=== PATIENT | male | born 1955 | race Caucasian/White ===

== ENCOUNTER 2017-05-19 15:31 | Inpatient (IN) | payer OTHER ==
[~2017-05-19] VITALS: Ht 182.9 cm; Wt 81.0 kg
[2017-05-19] VITALS (7 sets, daily range): BP systolic 129–159; BP diastolic 61–79; PULSE 60–74; RESP 14–20; TEMP 97.5–99.3; O2SAT 97–100
[2017-05-19] MEDS ORDERED: PROCHLORPERAZINE INJ 10 MG/2 ML VIAL IVP ONE (15:45)
[2017-05-19] MEDS ORDERED: SODIUM CHLORIDE 0.9% FLUSH 10 ML FLUSH IVF PRN (15:45)
[2017-05-19] MEDS ORDERED: HYDROmorphone HCL PF 1 MG/ML VIAL IVS ONE (15:45)
--- NOTE | 2017-05-19 15:53 | PD ---
HPI Chief Complaint: Headache Time Seen by Provider: 15:43 Travel History International Travel<30 days: No Contact w/Intl Traveler<30days: No Traveled to known affect area: No History of Present Illness HPI Diagnoses a 62-year-old male with no past medical history, presents here with sudden onset headache. Patient states he was hanging up [place] [employer] decorations when he had a sense onset of bifrontal and top of his head pain. Patient is not had previous pain like this before. He states he was straining trying to catch a decoration from falling when this happened. He did not pass out. He did not follow up the ladder. He reports the pain as sharp and severe. He denies any weakness of his extremities. He denies any neck pain. The patient is currently taking no medications. He has no family history of headaches. [facility] Past Medical History Medical History: Denies Significant Hx Diminished Hearing: No Tetanus Vaccination: > 5 Years Influenza Vaccination: No Past Surgical History Genitourinary Surgery: Yes (VESECTOMY) Social History Alcohol Use: Yes (OCC) Tobacco Use: No Substance Use: No Allergies-Medications (Allergen,Severity, Reaction): Coded Allergies: No Known Allergies (Verified Allergy, Unknown, 05/19/17) Reported Meds & Prescriptions Reported Meds & Active Scripts Active No Active Prescriptions or Reported Medications Review of Systems Except as stated in HPI: all other systems reviewed are Neg General / Constitutional: No: Fever, Chills HENT: Positive: Headaches, Neck Pain, No: Vertigo, Lightheadedness Cardiovascular: No: Chest Pain or Discomfort, Palpitations Respiratory: No: Cough, Shortness of Breath Gastrointestinal: No: Nausea, Vomiting Genitourinary: No: Urgency, Frequency, Nocturia Musculoskeletal: No: Weakness, Pain Neurologic: Positive: Headache, No: Weakness, Dizziness, Focal Abnormalities, Coordination Problem, Change in Mentation, Sensory Disturbance Physical Exam Narrative GENERAL: Well-developed well-nourished male in no acute respiratory distress. Patient complaining of pain. SKIN: Focused skin assessment warm/dry. HEAD: Atraumatic. Normocephalic. EYES: Pupils equal and round at 4 mm. Extraocular muscles appear intact. No nystagmus.. No scleral icterus. No injection or drainage. ENT: No nasal bleeding or discharge. Mucous membranes pink and moist. NECK: Trachea midline. Supple. CARDIOVASCULAR: Regular rate and rhythm. No murmur appreciated. RESPIRATORY: No accessory muscle use. Clear to auscultation. Breath sounds equal bilaterally. GASTROINTESTINAL: Abdomen soft, non-tender, nondistended. Hepatic and splenic margins not palpable. MUSCULOSKELETAL: No obvious deformities. No clubbing. No cyanosis. No edema. NEUROLOGICAL: Awake and alert. No obvious cranial nerve deficits. Motor grossly within normal limits. Normal speech. Normal huxu-lk-tate bilaterally. Data Data Last Documented VS Vital Signs Date Time Temp Pulse Resp B/P (MAP) Pulse Ox O2 Delivery O2 Flow Rate FiO2 05/19/17 16:35 20 05/19/17 15:36 97.5 71 137/79 (98) 100 Orders Orders Complete Blood Count With Diff (05/19/17 15:44) Comprehensive Metabolic Panel (05/19/17 15:44) Prothrombin Time / Inr (Pt) (05/19/17 15:44) Act Partial Throm Time (Ptt) (05/19/17 15:44) Ct Brain W/O Iv Contrast(Rout) (05/19/17 15:44) Ecg Monitoring (05/19/17 15:44) Iv Access Insert/Monitor (05/19/17 15:44) Oximetry (05/19/17 15:44) Prochlorperazine Inj (Compazine Inj) (05/19/17 15:45) Hydromorphone Pf Inj (Dilaudid Pf Inj) (05/19/17 15:45) Cta Brain W Iv Contrast W 3d (05/19/17 ) Admit Order (Ed Use Only) (05/19/17 16:41) Labs Laboratory Tests Test 05/19/17 16:11 White Blood Count 5.4 TH/MM3 Red Blood Count 4.61 MIL/MM3 Hemoglobin 14.5 GM/DL Hematocrit 41.8 % Mean Corpuscular Volume 90.6 FL Mean Corpuscular Hemoglobin 31.4 PG Mean Corpuscular Hemoglobin Concent 34.6 % Red Cell Distribution Width 13.3 % Platelet Count 131 TH/MM3 Mean Platelet Volume 7.6 FL Neutrophils (%) (Auto) 63.5 % Lymphocytes (%) (Auto) 28.6 % Monocytes (%) (Auto) 6.1 % Eosinophils (%) (Auto) 1.6 % Basophils (%) (Auto) 0.2 % Neutrophils # (Auto) 3.4 TH/MM3 Lymphocytes # (Auto) 1.5 TH/MM3 Monocytes # (Auto) 0.3 TH/MM3 Eosinophils # (Auto) 0.1 TH/MM3 Basophils # (Auto) 0.0 TH/MM3 CBC Comment DIFF FINAL Differential Comment Prothrombin Time 11.1 SEC Prothromb Time International Ratio 1.0 RATIO Activated Partial Thromboplast Time 20.3 SEC Blood Urea Nitrogen 22 MG/DL Creatinine 1.09 MG/DL Random Glucose 102 MG/DL Total Protein 7.0 GM/DL Albumin 4.3 GM/DL Calcium Level 8.2 MG/DL Alkaline Phosphatase 54 U/L Aspartate Amino Transf (AST/SGOT) 25 U/L Alanine Aminotransferase (ALT/SGPT) 40 U/L Total Bilirubin 0.8 MG/DL Sodium Level 140 MEQ/L Potassium Level 3.6 MEQ/L Chloride Level 105 MEQ/L Carbon Dioxide Level 27.6 MEQ/L Anion Gap 7 MEQ/L Estimat Glomerular Filtration Rate 69 ML/MIN Phosphorus Level 2.7 MG/DL Magnesium Level 1.8 MG/DL MDM Medical Decision Making Medical Screen Exam Complete: Yes Emergency Medical Condition: Yes Differential Diagnosis Tension headache versus subarachnoid bleed versus migraine variant Narrative Course 62-year-old male with no past medical history, presents today with sudden onset of headache while hanging up [employer] decorations. The patient has never had a headache such as this. He has no focal deficits. ET scan shows a large subarachnoid hemorrhage. The patient is awake and answering questions. He is moving all 4 extremities. Case discussed with Dr. Jeronimo, trauma surgeon, who requested we make the patient to the ICU. He also requested a CT angiogram being ordered. The patient's blood pressure is stable. Case was discussed with Dr. Adorno, flyer maker, who will admit the patient to the ICU. Critical Care Narrative Aggregate critical care time was 45 minutes. Time to perform other separately billable procedures was not included in the critical care time. My time did not include minutes spent treating any other patients simultaneously or on activities that did not directly contribute to the patient's treatment. The services I provided to this patient were to treat and/or prevent clinically significant deterioration that could result in: I provided critical care services requiring my management, as noted below: Chart data review, documentation time, medication orders and management, vital sign assessments/reviewing monitor data, ordering and reviewing lab tests, ordering and interpreting/reviewing x-rays and diagnostic studies, care of the patient and discussion of the patient with the admitting physicians. Diagnosis Primary Impression: Subarachnoid hemorrhage Admitting Information Admitting Physician Requests: Admit Scripts No Active Prescriptions or Reported Meds José Villafuerte MD May 19, 2017 15:52
[2017-05-19 16:18] LABS: AUTOMATED NEUTROPHIL # 3.4 TH/MM3 (1.8-7.7); BASOPHIL % 0.2 % (0.0-2.0); EOSINOPHIL # 0.1 TH/MM3 (0-0.4); EOSINOPHIL % 1.6 % (0.0-4.0); HEMATOCRIT 41.8 % (39.0-51.0); HEMO FLAGS DIFF FINAL; LYMPH % 28.6 % (9.0-44.0); LYMPHOCYTE # 1.5 TH/MM3 (1.0-4.8); MEAN CELL VOLUME 90.6 FL (80.0-100.0); MEAN CORPUSCULAR HEMOGLOBIN 31.4 PG (27.0-34.0); MEAN CORPUSCULAR HGB CONC 34.6 % (32.0-36.0); MONO % 6.1 % (0.0-8.0); NEUT % 63.5 % (16.0-70.0); PLATELET COUNT 131 TH/MM3 (150-450); RED BLOOD COUNT 4.61 MIL/MM3 (4.50-5.90); RED CELL DISTRIBUTION WIDTH 13.3 % (11.6-17.2); WHITE BLOOD COUNT 5.4 TH/MM3 (4.0-11.0)
--- NOTE | 2017-05-19 16:30 | RADRPT ---
EXAM DATE/TIME: 05/19/2017 16:09 [facility] COMPARISON: No previous studies available for comparison. INDICATIONS : Cephalgia today. RADIATION DOSE: 56.35 CTDIvol (mGy) MEDICAL HISTORY : None SURGICAL HISTORY : None. ENCOUNTER: Initial ACUITY: 1 day PAIN SCALE: 10/10 LOCATION: Bilateral head TECHNIQUE: Multiple contiguous axial images were obtained of the head. Using automated exposure control and adj ustment of the mA and/or kV according to patient size, radiation dose was kept as low as reasonably a chievable to obtain optimal diagnostic quality images. DICOM format image data is available electro nically for review and comparison. FINDINGS: The examination is abnormal demonstrating extensive subarachnoid hemorrhage about the base of the bra in, symmetric between left and right side with blood extending into the sylvian fissures, the anterio r interhemispheric fissure, about the brainstem, and in the pre-pontine region. The ventricles are n ormal in size. No evidence of midline shift. There is good chiu-white matter differentiation. CONCLUSION: Extensive subarachnoid hemorrhage both supratentorial and infratentorial. The findings were called to the ED Sj Carver MD on May 19, 2017 at 16:24 Board Certified Radiologist. This report was verified electronically.
[2017-05-19 16:31] LABS: ALKALINE PHOSPHATASE 54 U/L (45-117); TOTAL BILIRUBIN ADULT 0.8 MG/DL (0.2-1.0)
[2017-05-19 16:33] LABS: APTT (PATIENT) 20.3 SEC (24.3-30.1); PROTHROMBIN TIME - PATIENT 11.1 SEC (9.8-11.6)
[2017-05-19 16:35] LABS: ALT (GPT) 40 U/L (12-78); ANION GAP 7 MEQ/L (5-15); AST (GOT) 25 U/L (15-37); BICARBONATE 27.6 MEQ/L (21.0-32.0); BLOOD UREA NITROGEN 22 MG/DL (7-18); CHLORIDE 105 MEQ/L (98-107); GLOMERULAR FILTRATION RATE 69 ML/MIN (>89); POTASSIUM 3.6 MEQ/L (3.5-5.1); SODIUM (NA) 140 MEQ/L (136-145)
[2017-05-19] MEDS ORDERED: IOHEXOL 350 MG/ML 10 ML VIAL (for RAD DIAG) IVCONTRAST ONE (17:14)
[2017-05-19] MEDS ORDERED: SENNOSIDES 8.6 MG TAB PO PRN (17:30)
[2017-05-19] MEDS ORDERED: RESP: ALBUTEROL 2.5 MG/IPRATROPIUM 0.5 MG NEB (PRN) INH (17:30)
[2017-05-19] MEDS ORDERED: niCARdipine INJ 25 MG in SODIUM CHLOR 0.9% 250 ML INJ 240 ML IV PRN (17:30)
[2017-05-19] MEDS ORDERED: MAGNESIUM HYDROXIDE SUSP 30 ML CUP PO PRN ×2 (17:30→18:30)
[2017-05-19] MEDS ORDERED: MISCELLANEOUS NURSING INFORMATION XX SCH (17:30)
[2017-05-19] MEDS ORDERED: BISACODYL 10 MG SUPP RECTAL PRN (17:30)
[2017-05-19] MEDS ORDERED: CHLORHEXIDINE GLUCONATE 2 % 1 PACK (2 CLOTHS) TOP PRN (17:30)
[2017-05-19] MEDS ORDERED: SODIUM CHLORIDE 0.9% FLUSH 10 ML FLUSH IV FLUSH PRN (17:30)
[2017-05-19] MEDS ORDERED: LACTULOSE SYRUP 20 GM/30 ML CUP PO PRN (17:30)
[2017-05-19] MEDS ORDERED: POTASSIUM PHOSPHATE MONOBASIC 500 MG TAB PO PRN (17:45)
[2017-05-19] MEDS ORDERED: POTASSIUM CHLORIDE 25 MEQ EFFERVESCENT TAB PO PRN (17:45)
[2017-05-19] MEDS ORDERED: MAGNESIUM SULFATE INJ 2 GM in SODIUM CHLORIDE 0.9% INJ 96 ML IV PRN (17:45)
[2017-05-19] MEDS ORDERED: MAGNESIUM SULFATE INJ 4 GM in SODIUM CHLORIDE 0.9% INJ 92 ML IV PRN (17:45)
[2017-05-19] MEDS ORDERED: POTASSIUM CHLOR 40 MEQ PREMIX 100 ML IV PRN (17:45)
[2017-05-19] MEDS ORDERED: MAGNESIUM OXIDE 400 MG TAB PO PRN (17:45)
[2017-05-19] MEDS ORDERED: POTASSIUM PHOSPHATE MONOBASIC 500 MG TAB PO/TUBE PRN (17:45)
[2017-05-19] MEDS ORDERED: POTASSIUM CHLOR 20 MEQ PREMIX 100 ML IV PRN (17:45)
[2017-05-19] MEDS ORDERED: POTASSIUM PHOSPHATE INJ 30 MMOL in SODIUM CHLOR 0.9% 250 ML INJ 250 ML IV PRN (17:45)
[2017-05-19] MEDS ORDERED: SODIUM PHOSPHATE INJ 30 MMOL in SODIUM CHLOR 0.9% 250 ML INJ 240 ML IV PRN (17:45)
[2017-05-19] MEDS: NS + KCL 20 MEQ INJ 1,000 ML IV SCH (17:46)
[2017-05-19 17:57] LABS: MAGNESIUM 1.8 MG/DL (1.5-2.5)
--- NOTE | 2017-05-19 18:07 | RADRPT ---
EXAM DATE/TIME: 05/19/2017 16:49 [facility] COMPARISON: No previous studies available for comparison. INDICATIONS : Abnormal CT brain. IV CONTRAST: 85 cc Omnipaque 350 (iohexol) IV ; Cumulative dose for multiple exams. RADIATION DOSE: 15.34 CTDIvol (mGy) ; Combined studies MEDICAL HISTORY : None SURGICAL HISTORY : None. ENCOUNTER: Initial ACUITY: 1 day PAIN SCALE: 10/10 LOCATION: Bilateral head TECHNIQUE: Volumetric scanning was performed using a multi-row detector CT scanner. The data was post processed with a variety of visualization algorithms including full volume maximum intensity projection, multi -planar sliding thin slab reformation, curved planar reformation, and surface rendering techniques. Using automated exposure control and adjustment of the mA and/or kV according to patient size, radiat ion dose was kept as low as reasonably achievable to obtain optimal diagnostic quality images. DICO M format image data is available electronically for review and comparison. FINDINGS: Noncontrast CT demonstrates extensive subarachnoid hemorrhage. There is intact flow in the anterior and posterior cranial circulation without evidence of vessel truncation. Flow is seen in the anterio r communicating artery. The right posterior cerebral artery arises from the anterior circulation. N o flow seen in the left PCOM. No aneurysms seen. No evidence of vessel truncation. CONCLUSION: No vessel truncation or aneurysm seen in this patient with extensive bilateral subarachnoid hemorrhag e. The right P1 segment is not identified. Sj Carver MD on May 19, 2017 at 17:58 Board Certified Radiologist. This report was verified electronically.
--- NOTE | 2017-05-19 18:10 | RADRPT ---
EXAM DATE/TIME: 05/19/2017 16:49 [facility] COMPARISON: No previous studies available for comparison. INDICATIONS : Abnormal CT brain, radiology protocol. IV CONTRAST: 85 cc Omnipaque 350 (iohexol) IV ; Cumulative dose for multiple exams. RADIATION DOSE: 15.34 CTDIvol (mGy) ; Combined studies MEDICAL HISTORY : None SURGICAL HISTORY : None. ENCOUNTER: Initial ACUITY: 1 day PAIN SCALE: 0/10 LOCATION: Bilateral neck Elevated flow velocities and ICA/CCA ratios have been found to correlate with increased degrees of vessel stenosis, calculated as percentage of diameter relative to a normal segment of distal ICA/CCA. TECHNIQUE: Volumetric scanning was performed using a multirow detector CT scanner. The data was post processed with a variety of visualization algorithms including full-volume maximum intensity projection, multip lanar sliding thin-slab reformation, curved-planar reformation, and surface-rendering techniques. Us ing automated exposure control and adjustment of the mA and/or kV according to patient size, radiatio n dose was kept as low as reasonably achievable to obtain optimal diagnostic quality images. DICOM f ormat image data is available electronically for review and comparison. FINDINGS: AORTIC ARCH: There is a three-vessel origin of the great vessels from the aorta. No evidence of ostial narrowing. RIGHT CAROTID: The common carotid artery is intact. The carotid bulb has a normal configuration without ulceration o r narrowing. The internal carotid artery lumen is smooth without stenosis. The external carotid eliceo ry is intact. LEFT CAROTID: The common carotid artery is intact. The carotid bulb has a normal configuration without ulceration or narrowing. There is an eccentric calcification in the wall of the proximal internal carotid arter y posteriorly which does not cause luminal narrowing. The internal carotid artery lumen is smooth wi thout stenosis. The external carotid artery is intact. VERTEBRALS: The vertebral arteries have a symmetric diameter. No stenotic lesions are seen. CONCLUSION: Negative CTA. No focal areas of stenosis seen. Sj Carver MD on May 19, 2017 at 18:05 Board Certified Radiologist. This report was verified electronically.
[2017-05-19] MEDS ORDERED: ACETAMINOPHEN 325 MG TAB PO PRN (18:30)
[2017-05-19] MEDS ORDERED: PROMETHAZINE INJ 25 MG/ML VIAL IM PRN (18:30)
[2017-05-19] MEDS ORDERED: RESP: ALBUTEROL 2.5 MG/3 ML NEB (PRN) NEB (18:30)
[2017-05-19] MEDS ORDERED: ALUMINUM/MAGNESIUM/SIMETH 30 ML CUP PO PRN (18:30)
[2017-05-19] MEDS ORDERED: ONDANSETRON HCL 4 MG/2 ML VIAL IV PUSH PRN (18:30)
[2017-05-19] MEDS ORDERED: LORazepam 2 MG/ML VIAL IV PUSH PRN (18:30)
[2017-05-19] MEDS: MORPHINE SULFATE 4 MG/ML INJ IV PUSH PRN (18:50)
[2017-05-19] MEDS: levETIRAcetam INJ 500 MG in SODIUM CHLORIDE 0.9% INJ 100 ML IV SCH (18:57)
[2017-05-19] MEDS: DOCUSATE SODIUM 50 MG/SENNA 8.6 MG TAB PO SCH (19:53)
[2017-05-19] MEDS: DOCUSATE SODIUM 100 MG CAP PO SCH (19:53)
[2017-05-19] MEDS: ACETAMINOPHEN/HYDROcodone 325 MG/10 MG TAB PO PRN (19:53)
[2017-05-19] MEDS: niMODipine 30 MG CAP PO SCH ×2 (19:53→23:51)
[2017-05-19] MEDS: SODIUM CHLORIDE 0.9% FLUSH 10 ML FLUSH IV FLUSH SCH (19:54)
[2017-05-19] MEDS: FAMOTIDINE 20 MG/2 ML VIAL IV PUSH SCH (19:54)
--- NOTE | 2017-05-19 20:01 | MB ---
cc: BERNARD CHUNG DATE OF CONSULTATION 05/19/2017 REASON FOR CONSULTATION Subarachnoid hemorrhage. HISTORY OF PRESENT ILLNESS A 62-year-old gentleman who was brought to [facility] emergency room after presenting with A sudden onset of severe headache. Apparently, HE was hanging a large [place] tree and had to strain a lot and then subsequently noticed this headache which is bifrontal. He has also had some nausea and small bouts of vomiting, especially when he is moved from the stretcher to the CT scanner as well as the moment up to the intensive care unit. He denies any numbness or paresthesias in the upper or lower extremities or any double vision or blurred vision. CT scan of the head obtained reveals extensive subarachnoid hemorrhage involving the prepontine cistern, basal cisterns, suprasellar cistern, interhemispheric fissure and bilateral sylvian fissure. There is mild hydrocephalus with dilation of temporal horns noted also. Subsequent CT angiogram of the brain was obtained which does not reveal any underlying aneurysm. CTA of the neck is also negative. PAST MEDICAL HISTORY Unremarkable. MEDICATIONS None. SOCIAL HISTORY He is and his and son are here with him. He does not smoke and drinks alcohol on occasional basis. FAMILY HISTORY Positive for cardiac arrhythmias in his two brothers and Parkinson's disease in his father. No history of cerebral aneurysms in the family. REVIEW OF SYSTEMS Complains of headache and complains of bright light bothering him. Complains of nausea, complains of vomiting. Denies any double vision or blurred vision. No chest pain or shortness of breath. No abdominal pain, no numbness or paresthesias in the upper or lower extremities. Denies any previous history of headaches and usually does not get headaches, but this is the worst headache of his life. No history of easy bleeding or bruising. No fevers or chills. No recent weight gain or weight loss. No incontinence. No seizure-like activity noted. Review of systems otherwise negative other than the pertinent positives mentioned. LABORATORY FINDINGS White blood cell count 5.4, hemoglobin 14.5, platelet count 131, PT 11.1, INR 1.0, PTT 20.3. Sodium 140, potassium 3.6, BUN 22, creatinine 1.09, glucose 102. PHYSICAL EXAMINATION VITAL SIGNS: Temperature 97.5, pulse is 60, respiratory rate 20, blood pressure 144/70, oxygen saturation 97% on room air. GENERAL: This is an elderly gentleman who is laying in bed with his eyes closed. He complaints of headache and requesting stronger pain medications. HEAD: No Haile's or raccoon sign, atraumatic. NECK: No guarding and mild rigidity. CHEST: Clear to auscultation bilaterally HEART: Regular rate and rhythm, normal S1, S2, no murmurs. ABDOMEN: Soft, nontender. No hepatosplenomegaly. EXTREMITIES: No clubbing, cyanosis or edema. SKIN: No rash, erythema or abrasions noted. NEUROLOGIC: He is lethargic but easily arousable, states his name. He knows he is in the hospital. He knows the month but not the exact date. Pupils are equal, reactive. Extraocular muscles are intact, although he does seem to have a slight nystagmus on right lateral gaze. Face is symmetric. Tongue is midline. He moves all four extremities with good strength. Negative Babinski. Speech is fluent. Follows simple commands [place] Jones grade 3. IMPRESSION 1. Diffuse subarachnoid hemorrhage without any underlying aneurysm on CT angiogram of the brain. 2. Mild early hydrocephalus. PLAN The patient will be monitored closely in the surgical intensive care unit. His head of bed will be kept elevated at 30 degrees. He will be started on nimodipine for vasospasm and ischemia prophylaxis and Keppra for seizure prophylaxis. Sequential compression device will be used for DVT prophylaxis along with gastrointestinal stress ulcer prophylaxis. We will maintain his blood pressure less than 150 systolic range in case there is a thrombosed aneurysm or aneurysm not well visualized because of the extensive subarachnoid hemorrhage due to risk of re-hemorrhage. If his neurologic condition deteriorates then he will need to be intubated with ventilator support and will also need to contemplate placing a ventriculostomy. A follow-up CT angiogram or conventional cerebral angiogram will be obtained over the next 3-5 days to rule out any aneurysm or vascular abnormality not initially visualized. I have discussed the findings at length with the patient and his family along with the risks associated with this extensive subarachnoid hemorrhage including progressive hydrocephalus, vasospasm, brain swelling, seizures and other complications. His condition is obviously very critical with a guarded prognosis. Discussed with the billing department supervisor, Dr. Aguayo, and the nursing staff. MD ADRIANA Miller /6:47 PM /7:45 PM
--- NOTE | 2017-05-19 20:23 | HHI.HP ---
HPI Service Critical Care Medicine Primary Care Physician Unknown Admission Diagnosis acute subarachnoid hemorrhage Diagnosis: Travel History International Travel<30 Days: No Contact w/Intl Traveler <30 Da: No Traveled to Known Affected Are: No History of Present Illness 62-year-old male with no significant past medical history, presents here with sudden onset headache. Patient states he was pushing up a heavy [place] tree when he had a sudden onset of bifrontal and top of his head pain. He has never experienced similar pain before. He did not pass out. He did not fell off the ladder. He reports the pain as sharp and severe. He denies any weakness of his extremities. He denies any neck pain. The patient is currently taking no medications. He has no family history of headaches or subarachnoid bleed. The CT of the head revealed extensive subarachnoid bleed supratentorial and infratentorial. Head and neck CTA both negative for aneurysm. Review of Systems Constitutional: DENIES: Diaphoretic episodes, Fatigue, Fever, Weight gain, Weight loss, Chills, Dizziness, Change in appetite, Night Sweats Endocrine: DENIES: Heat/cold intolerance, Polydipsia, Polyuria, Polyphagia Eyes: DENIES: Blurred vision, Diplopia, Eye inflammation, Eye pain, Vision loss , Photosensitivity, Double Vision Ears, nose, mouth, throat: DENIES: Tinnitus, Hearing loss, Vertigo, Nasal discharge, Oral lesions, Throat pain, Hoarseness, Ear Pain, Running Nose, Epistaxis, Sinus Pain, Toothache, Odynophagia Respiratory: DENIES: Apneas, Cough, Snoring, Wheezing, Hemoptysis, Sputum production, Shortness of breath Cardiovascular: DENIES: Chest pain, Palpitations, Syncope, Dyspnea on Exertion , PND, Lower Extremity Edema, Orthopnea, Claudication Gastrointestinal: DENIES: Abdominal pain, Black stools, Bloody stools, Constipation, Diarrhea, Nausea, Vomiting, Difficulty Swallowing, Anorexia Genitourinary: DENIES: Sexual dysfunction, Urinary frequency, Urinary incontinence, Urgency, Hematuria, Dysuria, Nocturia, Penile Discharge, Testicular Pain, Testicular Swelling Musculoskeletal: DENIES: Joint pain, Muscle aches, Stiffness, Joint Swelling, Back pain, Neck pain Integumentary: DENIES: Abnormal pigmentation, Nail changes, Pruritus, Rash Hematologic/lymphatic: DENIES: Bruising, Lymphadenopathy Immunologic/allergic: DENIES: Eczema, Urticaria Neurologic: COMPLAINS OF: Headache, DENIES: Abnormal gait, Localized weakness, Paresthesias, Seizures, Speech Problems, Tremor, Poor Balance Psychiatric: DENIES: Anxiety, Confusion, Mood changes, Depression, Hallucinations, Agitation, Suicidal Ideation, Homicidal Ideation, Delusions Past Family Social History Allergies: Coded Allergies: No Known Allergies (Verified Allergy, Unknown, 05/19/17) Past Medical History No significant past medical history Past Surgical History No significant past surgical history Reported Medications Reported Meds & Active Scripts Active No Active Prescriptions or Reported Medications Active Ordered Medications Current Medications Medications (Trade) Dose Ordered Sig/Bam Route PRN Reason Start Time Stop Time Status Last Admin Dose Admin Sodium Chloride (NS Flush) 2 ml UNSCH PRN IVF FLUSH AFTER USING IV ACCESS 05/19/17 15:45 Potassium Chloride/Sodium Chloride 1,000 ml @ 100 mls/hr Q10H IV 05/19/17 17:24 05/19/17 17:46 Sodium Chloride (NS Flush) 2 ml UNSCH PRN IV FLUSH FLUSH AFTER USING IV ACCESS 05/19/17 17:30 Sodium Chloride (NS Flush) 2 ml BID IV FLUSH 05/19/17 21:00 05/19/17 19:54 Famotidine (Pepcid Inj) 20 mg Q12HR IV PUSH 05/19/17 21:00 05/19/17 19:54 Albuterol/ Ipratropium (Duoneb Neb) 1 ampule Q4HR NEB PRN INH WHEEZING 05/19/17 17:30 Miscellaneous Information 1 [id number] XX 05/19/17 17:30 Chlorhexidine Gluconate (Chlorhexidine 2% Cloth) 3 pack Taper DAILY@04 TOP 05/20/17 04:00 05/16/18 03:59 Chlorhexidine Gluconate (Chlorhexidine 2% Cloth) 3 pack UNSCH PRN TOP HYGIENIC CARE 05/19/17 17:30 Senna/Docusate Sodium (Debo-Colace) 1 tab BID PO 05/19/17 21:00 Magnesium Hydroxide (Milk Of Magnesia Liq) 30 ml Q12H PRN PO Mild constipation 05/19/17 17:30 Sennosides (Senokot) 17.2 mg Q12H PRN PO Moderate constipation 05/19/17 17:30 Bisacodyl (Dulcolax Supp) 10 mg DAILY PRN RECTAL SEVERE CONSITIPATION 05/19/17 17:30 Lactulose (Lactulose Liq) 30 ml DAILY PRN PO SEVERE CONSITIPATION 05/19/17 17:30 Nicardipine HCl 25 mg/Sodium Chloride 250 ml @ 50 mls/hr TITRATE PRN IV Blood pressure management 05/19/17 17:30 Potassium Chloride 100 ml @ 50 mls/hr Q2H PRN IV For Potassium 2.8 - 3.2 mEq/L 05/19/17 17:45 Potassium Chloride 100 ml @ 50 mls/hr Q2H PRN IV For Potassium 2.8 - 3.2 mEq/L 05/19/17 17:45 Potassium Bicarb/ Potassium Chloride (K-Lyte Cl Eff) 50 meq UNSCH PRN PO For Potassium 3.3 - 3.5 mEq/L 05/19/17 17:45 Potassium Chloride 100 ml @ 25 mls/hr UNSCH PRN IV For Potassium 3.3 - 3.5 mEq/L 05/19/17 17:45 Potassium Chloride 100 ml @ 50 mls/hr Q2H PRN IV For Potassium 3.3 - 3.5 mEq/L 05/19/17 17:45 Magnesium Sulfate 4 gm/Sodium Chloride 100 ml @ 50 mls/hr UNSCH PRN IV For Magnesium 0.9 - 1.1 mg/dL 05/19/17 17:45 Magnesium Oxide (Mag-Ox) 800 mg UNSCH PRN PO For Magnesium 1.2 - 1.6 mg/dL 05/19/17 17:45 Magnesium Sulfate 2 gm/Sodium Chloride 100 ml @ 50 mls/hr UNSCH PRN IV For Magnesium 1.2 - 1.6 mg/dL 05/19/17 17:45 Potassium Phosphate (K-Phos) 2,000 mg Q4H PRN PO For Phosphorus < 2.5 mg/dL 05/19/17 17:45 Sodium Phosphate 30 mmol/Sodium Chloride 250 ml @ 42 mls/hr UNSCH PRN IV For Phosphorus < 2.5 mg/dL 05/19/17 17:45 Potassium Phosphate (K-Phos) 2,000 mg UNSCH PRN PO/TUBE SEE LABEL COMMENTS 05/19/17 17:45 Potassium Phosphate 30 mmol/ Sodium Chloride 260 ml @ 42 mls/hr UNSCH PRN IV SEE LABEL COMMENTS 05/19/17 17:45 Morphine Sulfate (Morphine Inj) 2 mg Q1H PRN IV PUSH pain>6 05/19/17 18:30 05/19/17 18:50 Acetaminophen/ Hydrocodone Bitart ([place] 10-325 Mg) 1 tab Q4H PRN PO pain 1-6 05/19/17 18:30 Levetriacetam 500 mg/Sodium Chloride 105 ml @ 400 mls/hr Q12H IV 05/19/17 19:00 05/19/17 18:57 Lorazepam (Ativan Inj) 1 mg Q1H PRN IV PUSH SEIZURES 05/19/17 18:30 Docusate Sodium (Colace) 100 mg BID PO 05/19/17 21:00 05/19/17 19:53 Magnesium Hydroxide (Milk Of Magnesia Liq) 30 ml DAILY PRN PO CONSTIPATION 05/19/17 18:30 Al Hydrox/Mg Hydrox/Simethicone (Mag-Al Plus Susp Liq) 30 ml Q6H PRN PO DYSPEPSIA 05/19/17 18:30 Ondansetron HCl (Zofran Inj) 4 mg Q6H PRN IV PUSH NAUSEA OR VOMITING 05/19/17 18:30 05/19/17 18:52 Promethazine HCl (Phenergan Inj) 25 mg Q4H PRN IM NAUSEA OR VOMITING 05/19/17 18:30 Labetalol HCl (Trandate Inj) 10 mg Q1H PRN IV PUSH SYS BP GREATER THAN 150 MMHG 05/19/17 18:30 Acetaminophen (Tylenol) 650 mg Q4H PRN PO TEMPERATURE > 101.5 F 05/19/17 18:30 Albuterol Sulfate (Albuterol Neb) 2.5 mg Q4HR NEB PRN NEB WHEEZING 05/19/17 18:30 Nimodipine (Nimotop) 60 mg Q4HR PO 05/19/17 20:00 05/19/17 19:53 Family History No family history significant of intracranial bleed Social History Denies tobacco, alcohol, or illicit drug abuse Physical Exam Vital Signs Vital Signs Date Time Temp Pulse Resp B/P (MAP) Pulse Ox O2 Delivery O2 Flow Rate FiO2 05/19/17 19:09 96 Room Air 05/19/17 19:05 74 14 129/61 (83) 98 05/19/17 18:15 98.7 64 14 159/73 (101) 98 05/19/17 17:44 05/19/17 17:38 60 20 144/70 (94) 97 Room Air 05/19/17 16:35 20 05/19/17 15:36 97.5 71 20 137/79 (98) 100 Physical Exam GENERAL: Well-nourished, well-developed patient. SKIN: Warm and dry. HEAD: Normocephalic. EYES: No scleral icterus. No injection or drainage. NECK: Supple, trachea midline. No JVD or lymphadenopathy. CARDIOVASCULAR: Regular rate and rhythm without murmurs, gallops, or rubs. RESPIRATORY: Breath sounds equal bilaterally. No accessory muscle use. GASTROINTESTINAL: Abdomen soft, non-tender, nondistended. MUSCULOSKELETAL: No cyanosis, or edema. BACK: Nontender without obvious deformity. NEURO EXAM: GCS: M6 V5 E3 Mental Status: The patient is alert and oriented to person, place, and time with normal speech. Cranial Nerves: Visual acuity intact bilaterally. Visual yanes normal in all quadrants. Pupils are round, reactive to light. Extraocular movements are intact without ptosis. Hearing is normal bilaterally. Voice is normal. Tongue protrudes midline and moves symmetrically. Reflexes: Biceps, patellar, and Achilles are 2/4 bilaterally. No clonus. Sensation: Sensation is intact bilaterally to pain and light touch. Two-point discrimination is intact. Motor: Good muscle tone. Strength is 5/5 bilaterally. Cerebellar: [id number] and [id number] test normal bilaterally. Laboratory Laboratory Tests Test 05/19/17 16:11 White Blood Count 5.4 Red Blood Count 4.61 Hemoglobin 14.5 Hematocrit 41.8 Mean Corpuscular Volume 90.6 Mean Corpuscular Hemoglobin 31.4 Mean Corpuscular Hemoglobin Concent 34.6 Red Cell Distribution Width 13.3 Platelet Count 131 Mean Platelet Volume 7.6 Neutrophils (%) (Auto) 63.5 Lymphocytes (%) (Auto) 28.6 Monocytes (%) (Auto) 6.1 Eosinophils (%) (Auto) 1.6 Basophils (%) (Auto) 0.2 Neutrophils # (Auto) 3.4 Lymphocytes # (Auto) 1.5 Monocytes # (Auto) 0.3 Eosinophils # (Auto) 0.1 Basophils # (Auto) 0.0 CBC Comment DIFF FINAL Differential Comment Prothrombin Time 11.1 Prothromb Time International Ratio 1.0 Activated Partial Thromboplast Time 20.3 Blood Urea Nitrogen 22 Creatinine 1.09 Random Glucose 102 Total Protein 7.0 Albumin 4.3 Calcium Level 8.2 Alkaline Phosphatase 54 Aspartate Amino Transf (AST/SGOT) 25 Alanine Aminotransferase (ALT/SGPT) 40 Total Bilirubin 0.8 Sodium Level 140 Potassium Level 3.6 Chloride Level 105 Carbon Dioxide Level 27.6 Anion Gap 7 Estimat Glomerular Filtration Rate 69 Phosphorus Level 2.7 Magnesium Level 1.8 Result Diagram: 05/19/17 1611 05/19/17 1611 Imaging Last [address] 05/19/17 1544 Signed Impressions: Service Date/Time: Friday, May 19, 2017 16:09 - CONCLUSION: Extensive subarachnoid hemorrhage both supratentorial and infratentorial. The findings were called to the ED Sj Carver MD Neck CTA 05/19/17 0000 Signed Impressions: Service Date/Time: Friday, May 19, 2017 16:49 - CONCLUSION: Negative CTA. No focal areas of stenosis seen. Sj Carver MD Head CTA 05/19/17 0000 Signed Impressions: Service Date/Time: Friday, May 19, 2017 16:49 - CONCLUSION: No vessel truncation or aneurysm seen in this patient with extensive bilateral subarachnoid hemorrhage. The right P1 segment is not identified. MD Shmuel Lopesi VTE Risk Assessment Frances VTE Risk Assessment: Mod/High Risk (score >= 2) VTE Pharm Contraindication: Hemorrhage Caprini Risk Assessment Model Point Value = 1 Point Value = 2 Point Value = 3 Point Value = 5 Age 41-60 Minor surgery BMI > 25 kg/m2 Swollen legs Varicose veins or History of unexplained or recurrent spontaneous Oral contraceptives or hormone replacement Sepsis (< 1 month) Serious lung disease, including pneumonia (< 1 month) Abnormal pulmonary function Acute myocardial infarction Congestive heart failure (< 1 month) History of inflammatory bowel disease Medical patient at bed rest Age 61-74 Arthroscopic surgery Major open surgery (> 45 min) Laparoscopic surgery (> 45 min) Malignancy Confined to bed (> 72 hours) Immobilizing plaster cast Central venous access Age >= 75 History of VTE Family history of VTE Factor V Leiden Prothrombin [id number] Lupus anticoagulant Anticardiolipin antibodies Elevated serum homocysteine Heparin-induced thrombocytopenia Other congenital or acquired thrombophilia Stroke (< 1 month) Elective arthroplasty Hip, pelvis, or leg fracture Acute spinal cord injury (< 1 month) Prophylaxis Regimen Total Risk Factor Score Risk Level Prophylaxis Regimen 0-1 Low Early ambulation 2 Moderate Order ONE of the following: *Sequential Compression Device (SCD) *Heparin 5000 units SQ BID 3-4 Higher Order ONE of the following medications: *Heparin 5000 units SQ TID *Enoxaparin/Lovenox 40 mg SQ daily (WT < 150 kg, CrCl > 30 mL/min) *Enoxaparin/Lovenox 30 mg SQ daily (WT < 150 kg, CrCl > 10-29 mL/min) *Enoxaparin/Lovenox 30 mg SQ BID (WT < 150 kg, CrCl > 30 mL/min) AND/OR *Sequential Compression Device (SCD) 5 or more Highest Order ONE of the following medications: *Heparin 5000 units SQ TID (Preferred with Epidurals) *Enoxaparin/Lovenox 40 mg SQ daily (WT < 150 kg, CrCl > 30 mL/min) *Enoxaparin/Lovenox 30 mg SQ daily (WT < 150 kg, CrCl > 10-29 mL/min) *Enoxaparin/Lovenox 30 mg SQ BID (WT < 150 kg, CrCl > 30 mL/min) AND *Sequential Compression Device (SCD) Assessment and Plan Assessment and Plan Subarachnoid bleed - Neuro checks per unit protocol - CTA negative - TCD's daily - Keppra prophylaxis - Monitor for hydrocephalus - Pravachol nimodipine - SBP control with the goal less than 140 - Consider cerebral angiogram - Further Management per neurosurgery Hypertension - Cardene drip when necessary to keep SBP less than 140 DVT GI prophylaxis - Teds SCDs - No pharmacological DVT prophylaxis due to acute ICH - Pepcid Critical Care: The total critical care time was 35 minutes. Time to perform other separately billable procedures was not included in the critical care time. Blake Aguayo MD May 19, 2017 8:23 pm
[2017-05-20] VITALS (13 sets, daily range): BP systolic 94–141; BP diastolic 58–67; PULSE 58–75; RESP 14–24; TEMP 98–99.1; O2SAT 95–100
[2017-05-20] MEDS ORDERED: MIDAZOLAM HCL 2 MG/2 ML VIAL IV SCH (02:20)
[2017-05-20] MEDS ORDERED: MIDAZOLAM HCL 5 MG/ML VIAL (1 ML) ONE (02:34)
[2017-05-20] MEDS: NS + KCL 20 MEQ INJ 1,000 ML IV SCH ×3 (03:24→23:59)
[2017-05-20] MEDS: CHLORHEXIDINE GLUCONATE 2 % 1 PACK (2 CLOTHS) TOP SCH ×2 (04:00→23:56)
[2017-05-20] MEDS: niMODipine 30 MG CAP PO SCH ×6 (04:29→23:59)
--- NOTE | 2017-05-20 04:43 | RADRPT ---
EXAM DATE/TIME: 05/20/2017 04:06 [facility] COMPARISON: CT BRAIN W/O CONTRAST, May 19, 2017, 16:09. INDICATIONS : Follow up subarachnoid hemorrhage. RADIATION DOSE: 56.35 CTDIvol (mGy) MEDICAL HISTORY : Non-responsive. SURGICAL HISTORY : Non-responsive. ENCOUNTER: Subsequent ACUITY: 1 day PAIN SCALE: Non-responsive LOCATION: cranial TECHNIQUE: Multiple contiguous axial images were obtained of the head. Using automated exposure control and adj ustment of the mA and/or kV according to patient size, radiation dose was kept as low as reasonably a chievable to obtain optimal diagnostic quality images. DICOM format image data is available electro nically for review and comparison. FINDINGS: Extensive subarachnoid hemorrhage is again identified along the base of the brain without signif icant change. The hemorrhage is again noted to extend into the sylvian fissures and anterior interhem ispheric fissure. Interventricular hemorrhage is noted with high density seen levels in both occipita l horns. This hemorrhage is slightly increased in size and the occipital horns are slightly more prom inent. There is no mass effect or midline shift. The bone windows demonstrate no evidence of fracture . CONCLUSION: 1. Slight interval increase in intraventricular hemorrhage compared to the prior study. The occipital horns are slightly more prominent as well. 2. The subarachnoid hemorrhage is not significantly changed. Eduardo Porter MD on May 20, 2017 at 4:37 Board Certified Radiologist. This report was verified electronically.
[2017-05-20] MEDS ORDERED: ROCURONIUM INJ 50 MG/5 ML VIAL IV SCH ×2 (06:00→07:45)
[2017-05-20] MEDS ORDERED: MIDAZOLAM HCL 5 MG/ML VIAL (1 ML) IV SCH (06:00)
[2017-05-20] MEDS ORDERED: SUCCINYLCHOLINE CHLORIDE 100 MG/5 ML SYRINGE IV PUSH SCH (06:00)
[2017-05-20 06:25] LABS: AUTOMATED NEUTROPHIL # 7.1 TH/MM3 (1.8-7.7); BASOPHIL % 0.2 % (0.0-2.0); HEMATOCRIT 40.6 % (39.0-51.0); HEMO FLAGS DIFF FINAL; LYMPH % 11.1 % (9.0-44.0); LYMPHOCYTE # 0.9 TH/MM3 (1.0-4.8); MEAN CELL VOLUME 91.8 FL (80.0-100.0); MEAN CORPUSCULAR HEMOGLOBIN 31.4 PG (27.0-34.0); MEAN CORPUSCULAR HGB CONC 34.2 % (32.0-36.0); MONO % 5.4 % (0.0-8.0); NEUT % 83.3 % (16.0-70.0); PLATELET COUNT 130 TH/MM3 (150-450); RED BLOOD COUNT 4.42 MIL/MM3 (4.50-5.90); WHITE BLOOD COUNT 8.5 TH/MM3 (4.0-11.0)
[2017-05-20] MEDS: PROPOFOL 500 MG/50 ML INJ 50 ML ONE ×2 (06:40→11:38)
--- NOTE | 2017-05-20 06:52 | PD.PROCEDR ---
Procedure Note Procedure Endotracheal Intubation A time-out was completed verifying correct patient, procedure, site, positioning , and special equipment if applicable. The patient was placed in a flat position. Sedation was obtained using Etomidate 20mg. The patient was easily ventilated using an ambu bag. The [employer]/ MAC 4 BLADE was used and inserted into the oropharynx at which time there was a Grade 1 view of the vocal cords. A 8-croatian endotracheal tube was inserted and visualized going through the vocal cords. The stylette was removed. Colorimetric change was visualized on the CO2 meter. Breath sounds were heard in both lung yanes equally. The endotracheal tube was placed at 23 cm, measured at the teeth. A chest x-ray was ordered to assess for pneumothorax and verify endotrachealtube placement. Estimated Blood Loss: 0 The patient tolerated the procedure well and there were no complications. Blake Aguayo MD May 20, 2017 06:52
--- NOTE | 2017-05-20 06:53 | PD.PROCEDR ---
Procedure Note Procedure Centerline placement A time-out was completed verifying correct patient, procedure, site, positioning , and special equipment if applicable. The patient was placed in a dependent position appropriate for central line placement based on the vein to be cannulated. The patients right neck was prepped and draped in sterile fashion. 1% Lidocaine was used to anesthetize the surrounding skin area. A triple lumen 9 -Irish Cordis catheter was introduced into the the internal jugular vein using the Seldinger technique and under ultrasound guidance. The catheter was threaded smoothly over the guide wire and appropriate blood return was obtained. Each lumen of the catheter was evacuated of air and flushed with sterile saline. The catheter was then sutured in place to the skin and a sterile dressing applied. Perfusion to the extremity distal to the point of catheter insertion was checked and found to be adequate. Estimated Blood Loss: 1ml The patient tolerated the procedure well and there were no complications. Blake Aguayo MD May 20, 2017 06:53
[2017-05-20 06:54] LABS: ANION GAP 13 MEQ/L (5-15); AST (GOT) 17 U/L (15-37); BICARBONATE 21.3 MEQ/L (21.0-32.0); BLOOD UREA NITROGEN 17 MG/DL (7-18); CHLORIDE 106 MEQ/L (98-107); GLOMERULAR FILTRATION RATE 86 ML/MIN (>89); POTASSIUM 4.1 MEQ/L (3.5-5.1); SODIUM (NA) 140 MEQ/L (136-145)
[2017-05-20 06:59] LABS: ALKALINE PHOSPHATASE 46 U/L (45-117); ALT (GPT) 39 U/L (12-78); TOTAL BILIRUBIN ADULT 0.8 MG/DL (0.2-1.0)
--- NOTE | 2017-05-20 07:01 | RADRPT ---
EXAM DATE/TIME: 05/20/2017 06:48 [facility] COMPARISON: No previous studies available for comparison. INDICATIONS : ET tube placement, and central line placement. Subarachnoid hemorrhage and mental status changes. MEDICAL HISTORY : None. SURGICAL HISTORY : None. ENCOUNTER: Initial ACUITY: 1 day PAIN SCORE: Non-responsive. LOCATION: Bilateral chest FINDINGS: A single view of the chest demonstrates the lungs to be symmetrically aerated without evidence of mas s, infiltrate or effusion. The cardiomediastinal contours are unremarkable. An endotracheal tube is in place with the tip at the level of thoracic inlet. There has been placement of a right internal ju gular central venous line with no pneumothorax. Osseous structures are intact. CONCLUSION: 1. Intubation and placement of central venous line with no pneumothorax. 2. No acute cardiopulmonary disease. Eduardo Porter MD on May 20, 2017 at 6:58 Board Certified Radiologist. This report was verified electronically.
[2017-05-20] MEDS: DOCUSATE SODIUM 50 MG/SENNA 8.6 MG TAB PO SCH ×2 (07:55→20:09)
[2017-05-20] MEDS: DOCUSATE SODIUM 100 MG CAP PO SCH ×2 (07:55→20:09)
[2017-05-20] MEDS: FAMOTIDINE 20 MG/2 ML VIAL IV PUSH SCH ×2 (07:56→20:08)
[2017-05-20] MEDS: levETIRAcetam INJ 500 MG in SODIUM CHLORIDE 0.9% INJ 100 ML IV SCH ×2 (07:56→18:24)
[2017-05-20] MEDS: PROPOFOL 1000 MG/100 ML IV PRN ×4 (08:15→20:08)
--- NOTE | 2017-05-20 08:39 | PD.OP ---
Operative Report Date of Surgery: May 20, 2017 Preoperative Diagnosis: Subarachnoid hemorrhage with hydrocephalus Postoperative Diagnosis: Same Procedure: Right frontal twist drill hole ventriculostomy placement Anesthesia: Local with sedation Surgeon: Franky Jeronimo M.D. Molding Associate(s): None Operation and Findings: Informed consent was obtained from the . Following continuation of Diprivan and fentanyl drips with the oxygen saturation and hemodynamic monitoring in the intensive care unit, the right frontal region was shaved and the prep with chlor prep and sterilely draped. Using landmarks of 11 cm behind the nasion and 3 cm to the right of the midline, a 1 cm scalp incision was made after infiltrating with 1% lidocaine with epinephrine solution. With a handheld drill a twist drill hole was made in the underlying dura penetrated with a blunt probe. The bactiseal ventriculostomy catheter was then passed into the lateral ventricle at a depth of 6 cm blood-tinged CSF encountered with an opening pressure around 28 cm H20. After drainage of CSF the pressures were down to 8 cm H20. The distal end of the ventriculostomy was then tunneled under the scalp with a trocar and secured to the exit site with a 3-0 nylon thigh and connected to a drainage bag. Scalp incision site was approximated with 3-0 nylon interrupted stitches A sterile dressing was applied. There were no complications and blood loss was less than 5 cc. Franky Jeronimo MD May 20, 2017 08:39
[2017-05-20] MEDS ORDERED: PANTOPRAZOLE SODIUM 40 MG VIAL IVP SCH (09:00)
[2017-05-20] MEDS: SODIUM CHLORIDE 0.9% FLUSH 10 ML FLUSH IV FLUSH SCH ×2 (09:00→20:08)
--- NOTE | 2017-05-20 09:19 | HHI.NSPN ---
(Dillon Cross) History Chief Complaint: Intubated and sedated for diffuse SAH. (Dillon Cross) Interval History A 62-year-old gentleman who was brought to [facility] emergency room after presenting with A sudden onset of severe headache. Apparently, HE was hanging a large [place] tree and had to strain a lot and then subsequently noticed this headache which is bifrontal. He has also had some nausea and small bouts of vomiting, especially when he is moved from the stretcher to the CT scanner as well as the moment up to the intensive care unit. He denies any numbness or paresthesias in the upper or lower extremities or any double vision or blurred vision. CT scan of the head obtained reveals extensive subarachnoid hemorrhage involving the prepontine cistern, basal cisterns, suprasellar cistern, interhemispheric fissure and bilateral sylvian fissure. There is mild hydrocephalus with dilation of temporal horns noted also. Subsequent CT angiogram of the brain was obtained which does not reveal any underlying aneurysm. CTA of the neck is also negative. 05/20/17: Pt sedated on Diprivan. Pupils 2mm bilaterally, slight brisk reaction bilaterally. Ventriculostomy drain placed this morning by Dr. Jeronimo. ICPs 11. (Dillon Cross) System Review Comments Not able to obtain given level of alertness. (Dillon Cross) Exam Results Vital Signs Date Time Temp Pulse Resp B/P (MAP) Pulse Ox O2 Delivery O2 Flow Rate FiO2 05/20/17 08:09 100 30 05/20/17 04:00 98.0 74 23 141/67 (91) 05/19/17 19:09 Room Air Intake and Output 05/20/17 05/20/17 05/21/17 08:00 16:00 00:00 Intake Total 1139 ml Output Total 550 ml Balance 589 ml (Dillon Cross) Physical Examination General: Pt sedated and intubated. Vitals are stable. Eyes: Pupils 2mm bilaterally slight brisk reaction bilaterally. Resp: Intubated. CTA bilaterally. Pressure controlled. Rate 14. FiO2 30%. Peep 5. Heart: NSR no murmurs Abd: Soft positive bs. Skin: No cyanosis or erythema Muscle: Not following commands for muscle testing. Neuro: Pt sedated on Diprivan. Pupils 2mm bilaterally brisk slight reaction bilaterally. Not following commands. Ventriculostomy drain in place. ICP 11. (Dillon Cross) Lab, Micro, Other Results Last Impressions Head CT 05/20/17 0600 Signed Impressions: Service Date/Time: Saturday, May 20, 2017 04:06 - CONCLUSION: 1. Slight interval increase in intraventricular hemorrhage compared to the prior study. The occipital horns are slightly more prominent as well. 2. The subarachnoid hemorrhage is not significantly changed. Eduardo Porter MD Chest X-Ray 05/20/17 0000 Signed Impressions: Service Date/Time: Saturday, May 20, 2017 06:48 - CONCLUSION: 1. Intubation and placement of central venous line with no pneumothorax. 2. No acute cardiopulmonary disease. Eduardo Porter MD Neck CTA 05/19/17 0000 Signed Impressions: Service Date/Time: Friday, May 19, 2017 16:49 - CONCLUSION: Negative CTA. No focal areas of stenosis seen. Sj Carver MD Head CTA 05/19/17 0000 Signed Impressions: Service Date/Time: Friday, May 19, 2017 16:49 - CONCLUSION: No vessel truncation or aneurysm seen in this patient with extensive bilateral subarachnoid hemorrhage. The right P1 segment is not identified. Sj Carver MD Laboratory Tests Test 05/19/17 16:11 05/20/17 00:21 05/20/17 05:46 White Blood Count 5.4 TH/MM3 8.5 TH/MM3 Red Blood Count 4.61 MIL/MM3 4.42 MIL/MM3 Hemoglobin 14.5 GM/DL 13.9 GM/DL Hematocrit 41.8 % 40.6 % Mean Corpuscular Volume 90.6 FL 91.8 FL Mean Corpuscular Hemoglobin 31.4 PG 31.4 PG Mean Corpuscular Hemoglobin Concent 34.6 % 34.2 % Red Cell Distribution Width 13.3 % 14.0 % Platelet Count 131 TH/MM3 130 TH/MM3 Mean Platelet Volume 7.6 FL 7.7 FL Neutrophils (%) (Auto) 63.5 % 83.3 % Lymphocytes (%) (Auto) 28.6 % 11.1 % Monocytes (%) (Auto) 6.1 % 5.4 % Eosinophils (%) (Auto) 1.6 % 0.0 % Basophils (%) (Auto) 0.2 % 0.2 % Neutrophils # (Auto) 3.4 TH/MM3 7.1 TH/MM3 Lymphocytes # (Auto) 1.5 TH/MM3 0.9 TH/MM3 Monocytes # (Auto) 0.3 TH/MM3 0.5 TH/MM3 Eosinophils # (Auto) 0.1 TH/MM3 0.0 TH/MM3 Basophils # (Auto) 0.0 TH/MM3 0.0 TH/MM3 CBC Comment DIFF FINAL DIFF FINAL Differential Comment Prothrombin Time 11.1 SEC Prothromb Time International Ratio 1.0 RATIO Activated Partial Thromboplast Time 20.3 SEC Blood Urea Nitrogen 22 MG/DL 17 MG/DL Creatinine 1.09 MG/DL 0.90 MG/DL Random Glucose 102 MG/DL 132 MG/DL Total Protein 7.0 GM/DL 7.0 GM/DL Albumin 4.3 GM/DL 4.0 GM/DL Calcium Level 8.2 MG/DL 8.3 MG/DL Alkaline Phosphatase 54 U/L 46 U/L Aspartate Amino Transf (AST/SGOT) 25 U/L 17 U/L Alanine Aminotransferase (ALT/SGPT) 40 U/L 39 U/L Total Bilirubin 0.8 MG/DL 0.8 MG/DL Sodium Level 140 MEQ/L 140 MEQ/L Potassium Level 3.6 MEQ/L 4.1 MEQ/L Chloride Level 105 MEQ/L 106 MEQ/L Carbon Dioxide Level 27.6 MEQ/L 21.3 MEQ/L Anion Gap 7 MEQ/L 13 MEQ/L Estimat Glomerular Filtration Rate 69 ML/MIN 86 ML/MIN Phosphorus Level 2.7 MG/DL Magnesium Level 1.8 MG/DL 2.0 MG/DL Nasal Screen MRSA (PCR) MRSA NOT DETECTED 05/20/17 05/20/17 05/21/17 15:00 23:00 07:00 Intake Total 1139 ml Output Total 550 ml Balance 589 ml Intake IV Total 1139 ml Output Urine Total 550 ml (Dillon Cross) Medical Decision Making Impression and Plan A: 1. Diffuse subarachnoid hemorrhage without any underlying aneurysm on CT angiogram of the brain. 2. Mild early hydrocephalus. s/p ventriculostomy placement on 05/20 Pt remains in critical condition. PLAN Continue with close neuro checks Continue with ICP monitoring and treatment Continue with TCD for vasospasm evaluation Continue with SCDs for DVT prophylaxis Continue with keppra for seizure prophylaxis Continue with Nimotop for vasospasm prophylaxis. Discussed care plan with RN. (Dillon Cross) Attending Statement The exam, history, and the medical decision-making described in the above note were completed with the assistance of the mid-level provider. I reviewed and agree with the findings presented. I attest that I had a [id number] encounter with the patient on the same day, and personally performed and documented my assessment and findings in the medical record. Follow-up CT scan with no further hemorrhage but now has developed moderate hydrocephalus with some intraventricular hemorrhage in the occipital horns. He is intubated since that he was more lethargic with fluctuant level of alertness and the ventriculostomy also placed. We will obtain us conventional cerebral angiogram of the next day or so to further evaluate the possibility of an underlying aneurysm not initially visualized on the CT angiogram. Discussed with the and son at bedside. (Franky Jeronimo MD) Dillon Cross May 20, 2017 09:19 Franky Jeronimo MD May 20, 2017 11:19
[2017-05-20] MEDS ORDERED: SODIUM CHLOR 0.9% 1000 ML INJ 1,000 ML IV ONE (10:15)
[2017-05-20] MEDS ORDERED: NOREPINEPHRINE 4 MG/4 ML AMP ONE (10:35)
[2017-05-20] MEDS: NOREPINEPHRINE 4 MG/D5W 250 ML IV PRN ×2 (10:36→23:17)
[2017-05-20] MEDS: MORPHINE SULFATE 4 MG/ML INJ IV PUSH PRN (11:07)
[2017-05-20 12:05] LABS: BLOOD GAS HCO3 20 mmol/L (22-26); BLOOD GAS METHEMOGLOBIN 1.1 % (0-2); BLOOD GAS O2 HGB SATURATION 97 % (90-100); BLOOD GAS OXYGEN CONTENT 17.1 Vol % (12.0-20.0); BLOOD GAS PCO2 31 mmHg (38-42); BLOOD GAS PO2 164 mmHg (61-120); BLOOD GAS TOTAL HGB 12.3 G/DL (12.0-16.0); TEMP CORR TO 98.6
[2017-05-20 12:06] LABS: CRITICAL VALUE NO; OXYGEN DEVICE VENTILATOR
[2017-05-20 12:07] LABS: FIO2 30 %; STAT NO
--- NOTE | 2017-05-20 13:23 | HHI.CCPN ---
Subjective Remarks/Hospital Course 05/19: 62-year-old male with no significant past medical history, presents here with sudden onset headache. Patient states he was pushing up a heavy [place] tree when he had a sudden onset of bifrontal and top of his head pain. He has never experienced similar pain before. He did not pass out. He did not fell off the ladder. He reports the pain as sharp and severe. He denies any weakness of his extremities. He denies any neck pain. The patient is currently taking no medications. He has no family history of headaches or subarachnoid bleed. The CT of the head revealed extensive subarachnoid bleed supratentorial and infratentorial. Head and neck CTA both negative for aneurysm. 05/20: Patient reintubated for worsening neurologic status this morning and placed on mechanical ventilation. Neurosurgery placed a ventriculostomy. When I evaluated the patient he was sedated with propofol, orally intubated on mechanical ventilation. He had just been started on Levophed to maintain CPP. Objective Vital Signs Date Time Temp Pulse Resp B/P (MAP) Pulse Ox O2 Delivery O2 Flow Rate FiO2 05/20/17 12:00 67 05/20/17 12:00 99.0 14 109/61 (77) 100 05/20/17 08:09 30 05/19/17 19:09 Room Air Intake and Output 05/20/17 05/20/17 05/21/17 08:00 16:00 00:00 Intake Total 1139 ml 1150 ml Output Total 550 ml Balance 589 ml 1150 ml Result Diagram: 05/20/17 0546 05/20/17 0546 Other Results Laboratory Tests Test 05/20/17 11:43 Blood Gas Puncture Site RR ART LINE Blood Gas Patient Temperature 98.6 Blood Gas HCO3 20 mmol/L (22-26) Blood Gas Base Excess -4.0 mmol/L (-2-2) Blood Gas Oxygen Saturation 97 % (90-100) Arterial Blood pH 7.42 (7.380-7.420) Arterial Blood Partial Pressure CO2 31 mmHg (38-42) Arterial Blood Partial Pressure O2 164 mmHg (61-120) Arterial Blood Oxygen Content 17.1 Vol % (12.0-20.0) Arterial Blood Carboxyhemoglobin 1.0 % (0-4) Arterial Blood Methemoglobin 1.1 % (0-2) Blood Gas Hemoglobin 12.3 G/DL (12.0-16.0) Oxygen Delivery Device VENTILATOR Blood Gas Ventilator Setting 550/14/+5/1.0 Blood Gas Inspired Oxygen 30 % Imaging Last [address] 05/19/17 1544 Signed Impressions: Service Date/Time: Friday, May 19, 2017 16:09 - CONCLUSION: Extensive subarachnoid hemorrhage both supratentorial and infratentorial. The findings were called to the ED Sj Carver MD Neck CTA 05/19/17 0000 Signed Impressions: Service Date/Time: Friday, May 19, 2017 16:49 - CONCLUSION: Negative CTA. No focal areas of stenosis seen. Sj Carver MD Head CTA 05/19/17 0000 Signed Impressions: Service Date/Time: Friday, May 19, 2017 16:49 - CONCLUSION: No vessel truncation or aneurysm seen in this patient with extensive bilateral subarachnoid hemorrhage. The right P1 segment is not identified. Sj Carver MD Objective Remarks HEENT: Sedated, orally intubated, Pallor present, no icterus, tongue/ mucosa moist Neck: No JVD Chest/Pulm: on mech vent, good air entry bilaterally, no wheezing or crackles CVS: S1-S2 regular, no murmur GI/abdomen: soft, nontender, bowel sounds sluggish Extremities: warm bilaterally, no edema NEURO EXAM: Sedated, arousable, moves all 4 extremities, pupils 3 m bilaterally reactive, nonfocal grossly, ventriculostomy in place. A/P Assessment and Plan Subarachnoid bleed - Neuro checks per unit protocol - CTA negative - TCD's daily - Keppra prophylaxis - Monitor for hydrocephalus - Pravachol nimodipine - SBP control with the goal less than 140 - Consider cerebral angiogram - Ventriculostomy placed by neurosurgery - Further Management per neurosurgery Respiratory: Intubated for airway protection and placed on mechanical ventilation. Continue vent bundle, bronchodilators as needed. Hold C Pap trials still okay with neurosurgery. Cardiovascular Hypotension h/o Hypertension -IV hydration, started on Levophed for pressor support to maintain CPP greater than 60mm Hg GI/liver Start tube feeds with Jevity 1.5 and advanced to goal as tolerated. DVT GI prophylaxis - Teds SCDs - No pharmacological DVT prophylaxis due to acute ICH - Pepcid Critical Care: The total critical care time was 35 minutes. Time to perform other separately billable procedures was not included in the critical care time. Arturo Amato MD May 20, 2017 13:23
[2017-05-20] MEDS: fentaNYL DRIP 250 ML IV PRN (13:58)
--- NOTE | 2017-05-20 15:18 | RADRPT ---
EXAM DATE/TIME: 05/20/2017 08:36 [facility] COMPARISON: No previous studies available for comparison. INDICATIONS : Acute subarachnoid hemorrhage. MEDICAL HISTORY : Headache. Subarachnoid hemorrhage. SURGICAL HISTORY : Vasectomy. ENCOUNTER: Initial ACUITY: 1 day PAIN SCORE: Nonresponsive. LOCATION: Bilateral cranial Current Exam: May 20, 2017 [place] Ratio: Right: 1.5 Left: 2.1 [place] Ratio: Right: 2.2 Left: 2.6 Right: Left: Right: Left: FINDINGS: Examination performed at bedside. Real-time ultrasound with the assistance of color and spectral Dop pler was utilized to evaluate the intracerebral circulation. Time-averaged maximal velocities are ca lculated in cm/s. Based on [place] ratio, no significant vasospasm can be identified at this time. CONCLUSION: 1. No vasospasm seen at this time. Left posterior cerebral artery was not well evaluated. Otto Medina MD on May 20, 2017 at 15:13 Board Certified Radiologist. This report was verified electronically.
[2017-05-20] MEDS: PRAVASTATIN SOD 40 MG TAB PO SCH (20:09)
[2017-05-21] VITALS (19 sets, daily range): BP systolic 106–138; BP diastolic 51–64; PULSE 54–72; RESP 12–14; TEMP 97.7–100.3; O2SAT 97–100
[2017-05-21] MEDS: PROPOFOL 1000 MG/100 ML IV PRN ×3 (02:21→17:15)
[2017-05-21] MEDS: NOREPINEPHRINE INJ 4 MG in SODIUM CHLOR 0.9% 250 ML INJ 246 ML IV PRN ×2 (02:24→20:34)
[2017-05-21] MEDS: niMODipine 30 MG CAP PO SCH ×5 (04:26→21:25)
[2017-05-21 05:11] LABS: AUTOMATED NEUTROPHIL # 4.8 TH/MM3 (1.8-7.7); BASOPHIL % 0.3 % (0.0-2.0); EOSINOPHIL # 0.1 TH/MM3 (0-0.4); EOSINOPHIL % 1.3 % (0.0-4.0); HEMATOCRIT 36.9 % (39.0-51.0); HEMO FLAGS DIFF FINAL; LYMPH % 30.6 % (9.0-44.0); LYMPHOCYTE # 2.5 TH/MM3 (1.0-4.8); MEAN CELL VOLUME 91.1 FL (80.0-100.0); MEAN CORPUSCULAR HEMOGLOBIN 30.6 PG (27.0-34.0); MEAN CORPUSCULAR HGB CONC 33.6 % (32.0-36.0); MONO % 8.4 % (0.0-8.0); NEUT % 59.4 % (16.0-70.0); PLATELET COUNT 141 TH/MM3 (150-450); RED BLOOD COUNT 4.05 MIL/MM3 (4.50-5.90); RED CELL DISTRIBUTION WIDTH 14.2 % (11.6-17.2); WHITE BLOOD COUNT 8.1 TH/MM3 (4.0-11.0)
[2017-05-21 05:36] LABS: ALKALINE PHOSPHATASE 40 U/L (45-117); ALT (GPT) 30 U/L (12-78); ANION GAP 7 MEQ/L (5-15); AST (GOT) 14 U/L (15-37); BICARBONATE 21.7 MEQ/L (21.0-32.0); BLOOD UREA NITROGEN 15 MG/DL (7-18); CHLORIDE 115 MEQ/L (98-107); GLOMERULAR FILTRATION RATE 100 ML/MIN (>89); POTASSIUM 3.7 MEQ/L (3.5-5.1); SODIUM (NA) 144 MEQ/L (136-145); TOTAL BILIRUBIN ADULT 0.5 MG/DL (0.2-1.0)
[2017-05-21] MEDS: levETIRAcetam INJ 500 MG in SODIUM CHLORIDE 0.9% INJ 100 ML IV SCH ×2 (06:16→18:00)
[2017-05-21] MEDS ORDERED: GLUCAGON 1 MG/ML VIAL OTHER PRN (06:45)
[2017-05-21] MEDS ORDERED: DEXTROSE 50% IN WATER 50 ML VIAL(D50) IV PUSH PRN (06:45)
[2017-05-21 06:55] LABS: BLOOD GAS BASE EXCESS -3.7 mmol/L (-2-2); BLOOD GAS CARBOXYHEMOGLOBIN 0.9 % (0-4); BLOOD GAS HCO3 20 mmol/L (22-26); BLOOD GAS METHEMOGLOBIN 1.2 % (0-2); BLOOD GAS O2 HGB SATURATION 97 % (90-100); BLOOD GAS OXYGEN CONTENT 16.3 Vol % (12.0-20.0); BLOOD GAS PCO2 27 mmHg (38-42); BLOOD GAS PO2 163 mmHg (61-120); BLOOD GAS TOTAL HGB 11.7 G/DL (12.0-16.0); TEMP CORR TO 98.6
[2017-05-21 06:56] LABS: CRITICAL VALUE NO; DRAW SITE ART LINE; FIO2 30 %; OXYGEN DEVICE VENTILATOR; STAT NO; VENT SETTINGS PRVC/AC
[2017-05-21] MEDS ORDERED: POTASSIUM CHLORIDE 20 MEQ PWD PACKET NG ONE (07:15)
--- NOTE | 2017-05-21 07:22 | HHI.CCPN ---
Subjective Remarks/Hospital Course 05/19: 62-year-old male with no significant past medical history, presents here with sudden onset headache. Patient states he was pushing up a heavy [place] tree when he had a sudden onset of bifrontal and top of his head pain. He has never experienced similar pain before. He did not pass out. He did not fell off the ladder. He reports the pain as sharp and severe. He denies any weakness of his extremities. He denies any neck pain. The patient is currently taking no medications. He has no family history of headaches or subarachnoid bleed. The CT of the head revealed extensive subarachnoid bleed supratentorial and infratentorial. Head and neck CTA both negative for aneurysm. 05/20: Patient reintubated for worsening neurologic status this morning and placed on mechanical ventilation. Neurosurgery placed a ventriculostomy. When I evaluated the patient he was sedated with propofol, orally intubated on mechanical ventilation. He had just been started on Levophed to maintain CPP. Subjective 05/21: Afebrile. Patient remains bradycardic. Currently sedated with propofol along with fentanyl drips. Tolerating tube feeding. No bowel movement. Currently not following commands but on sedation. Plan for formal cerebral arteriogram today Objective Vital Signs Date Time Temp Pulse Resp B/P (MAP) Pulse Ox O2 Delivery O2 Flow Rate FiO2 05/21/17 04:00 56 05/21/17 04:00 98.9 14 114/62 (79) 100 05/21/17 04:00 30 05/20/17 19:00 Mechanical Ventilator Intake and Output 05/21/17 05/21/17 05/22/17 08:00 16:00 00:00 Intake Total 141 ml Balance 141 ml Result Diagram: 05/21/17 0430 05/21/17 0430 Other Results Laboratory Tests Test 05/20/17 11:43 05/21/17 06:45 Blood Gas Puncture Site RR ART LINE ART LINE Blood Gas Patient Temperature 98.6 98.6 Blood Gas HCO3 20 mmol/L (22-26) 20 mmol/L (22-26) Blood Gas Base Excess -4.0 mmol/L (-2-2) -3.7 mmol/L (-2-2) Blood Gas Oxygen Saturation 97 % (90-100) 97 % (90-100) Arterial Blood pH 7.42 (7.380-7.420) 7.47 (7.380-7.420) Arterial Blood Partial Pressure CO2 31 mmHg (38-42) 27 mmHg (38-42) Arterial Blood Partial Pressure O2 164 mmHg (61-120) 163 mmHg (61-120) Arterial Blood Oxygen Content 17.1 Vol % (12.0-20.0) 16.3 Vol % (12.0-20.0) Arterial Blood Carboxyhemoglobin 1.0 % (0-4) 0.9 % (0-4) Arterial Blood Methemoglobin 1.1 % (0-2) 1.2 % (0-2) Blood Gas Hemoglobin 12.3 G/DL (12.0-16.0) 11.7 G/DL (12.0-16.0) Oxygen Delivery Device VENTILATOR VENTILATOR Blood Gas Ventilator Setting 550/14/+5/1.0 PRVC/AC Blood Gas Inspired Oxygen 30 % 30 % Imaging Last Impressions Head CT 05/20/17 0600 Signed Impressions: Service Date/Time: Saturday, May 20, 2017 04:06 - CONCLUSION: 1. Slight interval increase in intraventricular hemorrhage compared to the prior study. The occipital horns are slightly more prominent as well. 2. The subarachnoid hemorrhage is not significantly changed. Eduardo Porter MD Chest X-Ray 05/20/17 0000 Signed Impressions: Service Date/Time: Saturday, May 20, 2017 06:48 - CONCLUSION: 1. Intubation and placement of central venous line with no pneumothorax. 2. No acute cardiopulmonary disease. Eduardo Porter MD Neck CTA 05/19/17 0000 Signed Impressions: Service Date/Time: Friday, May 19, 2017 16:49 - CONCLUSION: Negative CTA. No focal areas of stenosis seen. Sj Carver MD Head CTA 05/19/17 0000 Signed Impressions: Service Date/Time: Friday, May 19, 2017 16:49 - CONCLUSION: No vessel truncation or aneurysm seen in this patient with extensive bilateral subarachnoid hemorrhage. The right P1 segment is not identified. Sj Carver MD Objective Remarks HEENT: Sedated, orally intubated, Pallor present, no icterus, tongue/ mucosa moist Neck: No JVD Chest/Pulm: on mech vent, good air entry bilaterally, no wheezing or crackles CVS: S1-S2 regular, no murmur GI/abdomen: soft, nontender, bowel sounds sluggish Extremities: warm bilaterally, no edema NEURO EXAM: GENERAL: 62-year-old male, currently orotracheally intubated SKIN: Warm and dry. No rash HEAD: Status post right ventriculostomy currently at -10 cm H2O EYES: Pupils equal and round around 2-3 mm and slightly reactive. No scleral icterus. No injection or drainage. ENT: No nasal bleeding or discharge. Mucous membranes pink and moist. Orotracheally intubated NECK: Trachea midline. No JVD. CARDIOVASCULAR: Bradycardic, RR. S1, S2. No S4. Without murmur RESPIRATORY: Clear to auscultation. Breath sounds equal bilaterally. GASTROINTESTINAL: Abdomen soft, non-tender, nondistended. Hypoactive bowel sounds are appreciated MUSCULOSKELETAL: Extremities without significant peripheral edema. No obvious deformities. NEUROLOGICAL: Cranial nerves II through XII appear grossly intact. Patient does withdrawal all 4 extremity's. Currently not following commands. Currently on propofol drip at 25 mics grams per kilo per minute and fentanyl drip at 150 g an hour. Urinary Catheter: Yes Assessment to: Continue Arellano insert reason: Prolonged Immobilization Vascular Central Line Catheter: Yes Assessment to: Continue Date of Insertion: May 20, 2017 Line: Central Venous Catheter Side: Right Location: Subclavian A/P Assessment and Plan NEURO/PSYCH: Subarachnoid hemorrhage CT brain 05/19 revealed open infratentorial subarachnoid hemorrhage fissure scale #3. Subarachnoid blood in the sylvian fissures, anterior hemispheric fissure, brainstem and pre-pontine region CT angiogram head and neck revealed no acute aneurysm Repeat CT brain 05/20 revealed no further hemorrhage but now has developed moderate hydrocephalus with some intraventricular hemorrhage in the occipital horn Plan for formal cerebral angiography today. Dr. Jeronimo/neurosurgery placed ICP monitor. Currently at -10 cm H2O -110 cm fluid serosanguineous. ICPs currently 9 Currently on levetiracetam 500 mill grams IV twice a day for seizure prophylaxis 7 days Currently on nimodipine 60 mg by mouth every 4 hours Goal systolic blood pressure less than 140 Transcranial Dopplers daily. Respiratory: Acute respiratory failure [facility] 12/500/06/29/29 Ventilator bundle Albuterol/ipratropium aerosols every 6 hours with albuterol aerosols every 2 hours. Dyspnea Intubated for airway protection and placed on mechanical ventilation. Continues breathing trials when okay with neurosurgery. Cardiovascular Hypotension h/o Hypertension -IV hydration with normal saline with 20 mEq of KCl 100 cc an hour - Currently on norepinephrine drip currently at 5 mics grams per minute support to maintain CPP greater than 60mm Hg GI/liver Hypoalbuminemia Start tube feeds with Jevity 1.5 and advanced to goal of 60 cc an hour per dietary's recommendations Famotidine for GI prophylaxis Docusate sodium/senna twice a day for bowel regimen. Add polyethylene glycol and lactulose daily HEME Normocytic anemia Thrombocytopenia Monitor CBC daily. Follow trends Does not meet transfusion threshold at this time : Maintain Arellano catheter for accurate I's and O's in a critically ill patient ID: Monitor for infection RENAL: Creatinine currently within normal limits Monitor urine output Accurate I's and O's FEN: Hypocalcemia Hyperchloremia Replace electrolytes as clinically indicated per ICU electrolyte protocol DVT GI prophylaxis - Teds SCDs - No pharmacological DVT prophylaxis due to acute ICH -Famotidine for GI prophylaxis Critical Care: The total critical care time was 35 minutes. Time to perform other separately billable procedures was not included in the critical care time. Segun Lima MD May 21, 2017 07:22
[2017-05-21] MEDS: RESP: ALBUTEROL 2.5 MG/IPRATROPIUM 0.5 MG NEB (SCH) INH ×6 (08:00→23:57)
[2017-05-21] MEDS: POLYETHYLENE GLYCOL 17 GM PKG PO SCH ×2 (08:35→14:17)
[2017-05-21] MEDS: LACTULOSE SYRUP 20 GM/30 ML CUP PO SCH ×2 (08:35→14:16)
[2017-05-21] MEDS: DOCUSATE SODIUM 50 MG/SENNA 8.6 MG TAB PO SCH ×2 (08:36→20:34)
[2017-05-21] MEDS: FAMOTIDINE 20 MG/2 ML VIAL IV PUSH SCH ×2 (08:36→20:34)
[2017-05-21] MEDS: NS + KCL 20 MEQ INJ 1,000 ML IV SCH ×2 (08:37→20:35)
[2017-05-21] MEDS: SODIUM CHLORIDE 0.9% FLUSH 10 ML FLUSH IV FLUSH SCH ×2 (08:38→21:00)
--- NOTE | 2017-05-21 09:23 | RADRPT ---
EXAM DATE/TIME: 05/21/2017 08:03 [facility] COMPARISON: US TRANSCRANIAL DOPPLER COMPLETE, May 20, 2017, 8:36. INDICATIONS : Subarachnoid hemorrhage. MEDICAL HISTORY : Headache. Subarachnoid hemorrhage. SURGICAL HISTORY : Vasectomy. ENCOUNTER: Subsequent ACUITY: 2 days PAIN SCORE: Nonresponsive. LOCATION: Bilateral cranial Current Exam: May 21, 2017 [place] Ratio: Right: 1.1 Left: 1.2 Briggs Ratio: Right: 0.9 Left: 0.8 Previous Exam: May 20, 2017 [place] Ratio: Right: 1.5 Left: 2.1 [place] Ratio: Right: 2.2 Left: 2.6 FINDINGS: Examination performed at bedside. Real-time ultrasound with the assistance of color and spectral Dop pler was utilized to evaluate the intracerebral circulation. Time-averaged maximal velocities are ca lculated in cm/s. No evidence for vasospasm. Posterior fossa velocities are difficult to assess. CONCLUSION: Negative for vasospasm. Sandoval Mccollum MD FACR on May 21, 2017 at 9:18 Board Certified Radiologist. This report was verified electronically.
--- NOTE | 2017-05-21 09:28 | HHI.NSPN ---
(Dillon Cross) History Chief Complaint: Intubated and sedated for diffuse SAH. (Dillon Cross) Interval History A 62-year-old gentleman who was brought to [facility] emergency room after presenting with A sudden onset of severe headache. Apparently, HE was hanging a large [place] tree and had to strain a lot and then subsequently noticed this headache which is bifrontal. He has also had some nausea and small bouts of vomiting, especially when he is moved from the stretcher to the CT scanner as well as the moment up to the intensive care unit. He denies any numbness or paresthesias in the upper or lower extremities or any double vision or blurred vision. CT scan of the head obtained reveals extensive subarachnoid hemorrhage involving the prepontine cistern, basal cisterns, suprasellar cistern, interhemispheric fissure and bilateral sylvian fissure. There is mild hydrocephalus with dilation of temporal horns noted also. Subsequent CT angiogram of the brain was obtained which does not reveal any underlying aneurysm. CTA of the neck is also negative. 05/20/17: Pt sedated on Diprivan. Pupils 2mm bilaterally, slight brisk reaction bilaterally. Ventriculostomy drain placed this morning by Dr. Jeronimo. ICPs 11. 05/21/17: Pt sedated on Diprivan and Fentanyl. Intubated. Pupils 2mm bilaterally reactive bilaterally. Ventriculostomy drain in place with blood tinged CSF at 10cm H2O. ICP 6-8. (Dillon Cross) System Review Comments Not able to obtain given clinical condition. (Dillon Cross) Exam Results Vital Signs Date Time Temp Pulse Resp B/P (MAP) Pulse Ox O2 Delivery O2 Flow Rate FiO2 05/21/17 09:11 100 30 05/21/17 06:00 54 05/21/17 04:00 98.9 14 114/62 (79) 05/20/17 19:00 Mechanical Ventilator Intake and Output 05/21/17 05/21/17 05/22/17 08:00 16:00 00:00 Intake Total 787 ml Output Total 610 ml Balance 177 ml (Dillon Cross) Physical Examination General: Pt sedated on Diprivan and Fentanyl drip and intubated. Vitals are stable. Eyes: Pupils 2mm bilaterally slight brisk reaction bilaterally. Resp: Intubated. CTA bilaterally. Pressure controlled. Rate 14. FiO2 35%. Peep 5. Heart: NSR no murmurs Abd: Soft positive bs. Skin: No cyanosis or erythema Muscle: Not following commands for muscle testing. Neuro: Pt sedated on Diprivan and Fentanyl drips. Pupils 2mm bilaterally brisk slight reaction bilaterally. Not following commands. Ventriculostomy drain in place at [id number] with blood tinged CSF. ICP 6-8. (Dillon Cross) Physical Examination He is intubated and sedated with fentanyl and Diprivan drips. When drips were held he does open his eyes spontaneously and follows commands and moving all 4 extremities. (Franky Jeronimo MD) Lab, Micro, Other Results Last Impressions Head CT 05/20/17 0600 Signed Impressions: Service Date/Time: Saturday, May 20, 2017 04:06 - CONCLUSION: 1. Slight interval increase in intraventricular hemorrhage compared to the prior study. The occipital horns are slightly more prominent as well. 2. The subarachnoid hemorrhage is not significantly changed. Eduardo Porter MD Chest X-Ray 05/20/17 0000 Signed Impressions: Service Date/Time: Saturday, May 20, 2017 06:48 - CONCLUSION: 1. Intubation and placement of central venous line with no pneumothorax. 2. No acute cardiopulmonary disease. Eduardo Porter MD Neck CTA 05/19/17 0000 Signed Impressions: Service Date/Time: Friday, May 19, 2017 16:49 - CONCLUSION: Negative CTA. No focal areas of stenosis seen. Sj Carver MD Head CTA 05/19/17 0000 Signed Impressions: Service Date/Time: Friday, May 19, 2017 16:49 - CONCLUSION: No vessel truncation or aneurysm seen in this patient with extensive bilateral subarachnoid hemorrhage. The right P1 segment is not identified. Sj Carver MD Laboratory Tests Test 05/20/17 11:43 05/21/17 04:30 05/21/17 06:45 Blood Gas Puncture Site RR ART LINE ART LINE Blood Gas Patient Temperature 98.6 98.6 Blood Gas HCO3 20 mmol/L 20 mmol/L Blood Gas Base Excess -4.0 mmol/L -3.7 mmol/L Blood Gas Oxygen Saturation 97 % 97 % Arterial Blood pH 7.42 7.47 Arterial Blood Partial Pressure CO2 31 mmHg 27 mmHg Arterial Blood Partial Pressure O2 164 mmHg 163 mmHg Arterial Blood Oxygen Content 17.1 Vol % 16.3 Vol % Arterial Blood Carboxyhemoglobin 1.0 % 0.9 % Arterial Blood Methemoglobin 1.1 % 1.2 % Blood Gas Hemoglobin 12.3 G/DL 11.7 G/DL Oxygen Delivery Device VENTILATOR VENTILATOR Blood Gas Ventilator Setting 550/14/+5/1.0 PRVC/AC Blood Gas Inspired Oxygen 30 % 30 % White Blood Count 8.1 TH/MM3 Red Blood Count 4.05 MIL/MM3 Hemoglobin 12.4 GM/DL Hematocrit 36.9 % Mean Corpuscular Volume 91.1 FL Mean Corpuscular Hemoglobin 30.6 PG Mean Corpuscular Hemoglobin Concent 33.6 % Red Cell Distribution Width 14.2 % Platelet Count 141 TH/MM3 Mean Platelet Volume 7.8 FL Neutrophils (%) (Auto) 59.4 % Lymphocytes (%) (Auto) 30.6 % Monocytes (%) (Auto) 8.4 % Eosinophils (%) (Auto) 1.3 % Basophils (%) (Auto) 0.3 % Neutrophils # (Auto) 4.8 TH/MM3 Lymphocytes # (Auto) 2.5 TH/MM3 Monocytes # (Auto) 0.7 TH/MM3 Eosinophils # (Auto) 0.1 TH/MM3 Basophils # (Auto) 0.0 TH/MM3 CBC Comment DIFF FINAL Differential Comment Blood Urea Nitrogen 15 MG/DL Creatinine 0.79 MG/DL Random Glucose 144 MG/DL Total Protein 5.5 GM/DL Albumin 3.2 GM/DL Calcium Level 7.5 MG/DL Alkaline Phosphatase 40 U/L Aspartate Amino Transf (AST/SGOT) 14 U/L Alanine Aminotransferase (ALT/SGPT) 30 U/L Total Bilirubin 0.5 MG/DL Sodium Level 144 MEQ/L Potassium Level 3.7 MEQ/L Chloride Level 115 MEQ/L Carbon Dioxide Level 21.7 MEQ/L Anion Gap 7 MEQ/L Estimat Glomerular Filtration Rate 100 ML/MIN (Dillon Cross) Lab, Micro, Other Results Last 24 hours Impressions Transcranial Doppler Study Complete 05/21/17 0600 Signed Impressions: Service Date/Time: Sunday, May 21, 2017 08:03 - CONCLUSION: Negative for vasospasm. Sandoval Mccollum MD FACR (Franky Jeronimo MD) Medical Decision Making Impression and Plan A: 1. Diffuse subarachnoid hemorrhage without any underlying aneurysm on CT angiogram of the brain. 2. Mild early hydrocephalus. s/p ventriculostomy placement on 05/20 Pt remains in critical condition. PLAN Continue with close neuro checks Continue with ICP monitoring and treatment Continue with TCD for vasospasm evaluation Continue with SCDs for DVT prophylaxis Continue with keppra for seizure prophylaxis Continue with Nimotop for vasospasm prophylaxis. Pt going for follow up CTA brain today. Discussed care plan with RN. Updated and brother at bedside. (Dillon Cross) Impression and Plan The exam, history, and the medical decision-making described in the above note were completed with the assistance of the mid-level provider. I reviewed and agree with the findings presented. I attest that I had a [id number] encounter with the patient on the same day, and personally performed and documented my assessment and findings in the medical record. Ventriculostomy draining well with normal ICPs. Neurologic examination stable. Cerebral angiogram of the brain without any underlying aneurysm or vasospasm. Continue with supportive care. Updated and son at bedside. (Franky Jeronimo MD) Dillon Cross May 21, 2017 09:28 Franky Jeronimo MD May 21, 2017 16:58
[2017-05-21] MEDS ORDERED: levETIRAcetam INJ 100 ML IV ONE (10:00)
[2017-05-21] MEDS: INSULIN NovoLIN REGULAR SUPPLEMENTAL SCALE SQ SCH ×2 (12:00→18:00)
--- NOTE | 2017-05-21 12:38 | MG ---
cc: LAN NDIAYE MD Lab No: [id number] Date: 05/21/2017 : 1955 Sex: M INDICATION A 62-year-old with history of shaking episode, dizziness. Stat. EEG apparently ordered. DESCRIPTION Generalized delta activity, 1-3 Hz with superimposed theta activity 4-5 Hz and spindles noted. Single lead EKG showing sinus rhythm. INTERPRETATION Moderate encephalopathy. No epileptic activity. Clinical correlation. Lan Ndiaye MD MG/BT /12:24 PM /12:33 PM
--- NOTE | 2017-05-21 13:03 | PD.RAD ---
Post Procedure Progress Note Pre Procedure Diagnosis: (1) SAH (subarachnoid hemorrhage) Post Procedure Diagnosis: (1) SAH (subarachnoid hemorrhage) Procedure Date: May 21, 2017 Supervising Radiologist: Hipolito Mccollum Estimated blood loss: 2cc Anesthesia: Local, Other Plan of Activity Patient to Unit: Critical Care Patient Condition: Poor Additional Comments: 4 Vessel cerebral angio with cross compression views completed. No aneurism identified. No vasospasm. Exam remains suspicious additional follow up cta would be warranted See PACS Report for procedural detail/treatment Hipolito Mccollum MD May 21, 2017 13:03
[2017-05-21] MEDS ORDERED: IODIXANOL 320 MG/ML 50 ML VIAL (for RAD SPEC) I-ARTERIAL ONE (13:35)
[2017-05-21] MEDS: fentaNYL DRIP 250 ML IV PRN (14:16)
[2017-05-21] MEDS: ARTIFICIAL TEARS OPTH SOLN 15 ML BTL EACH EYE SCH ×2 (14:44→21:26)
--- NOTE | 2017-05-21 16:47 | RADRPT ---
EXAM DATE/TIME: 05/21/2017 09:48 [facility] COMPARISON: ULTRASOUND GUIDANCE FOR VASCULAR ACCESS, May 21, 2017, 0:00. INDICATIONS : Patient with a history of subarachnoid hemorrhage MEDICAL HISTORY : None. SURGICAL HISTORY : None. ENCOUNTER: Initial ACUITY: 2 days PAIN SCORE: Nonresponsive. FLUORO TIME: 11.5 minutes IMAGE SERIES: 19 ACCESS SITE: Right Femoral artery CONTRAST: 120 cc Visipaque (iodixanol) DEVICE(S): 1.) Right common femoral artery Syvek patch PROCEDURE : 1. Ultrasound-guided puncture of the access site. 2. Conscious sedation with continuous EKG and Oximetry monitoring. 3. Angiography of the left carotid circulation 4. Angiography of the right carotid circulation 5. Angiography of the posterior circulation The risks, benefits and alternatives to the procedure were explained the patient's and verbal an d written consent was obtained. The site was prepped in sterile fashion. Full sterile technique was used, including cap, mask, sterile gloves and gown and a large sterile sheet. Hand hygiene and 2% c hlorhexidine and/or betadine/alcohol prep was utilized per protocol for cutaneous antisepsis. Steril e gel and sterile probe cover were utilized for ultrasound guidance. The skin and subcutaneous tissu es were infiltrated with local anesthetic solution. With ultrasound and fluoroscopic guidance the right common femoral artery was punctured and a vascula r sheath was placed A 0.035 angle Glidewire a JB2 catheter were advanced into the right common carotid. Selective angiogr aphy of the intracranial circulation feeding from the right carotid was performed. Cross compression views of the anterior communicating artery were performed. The catheter was withdrawn. The left commo n carotid was selected. Selective angiography of the left internal carotid circulation was performed. Cross compression views of the anterior communicating artery from the left injection were performed as well. The catheter was withdrawn. The left vertebral was selected. Evaluation of the posterior circulation on the left was performed. The catheter was removed. The right vertebral was selected. Evaluation of the right internal carotid circulation was performed. Results: The right common carotid and bifurcation are widely patent. The internal carotid is widely patent. Th e appearance of the anterior and middle cerebral circulation which feeds via the right appears widely patent. No discrete intracranial aneurysm feeding the right circulation was performed. The left inte rnal carotid is widely patent. The appearance of the anterior and middle cerebral circulation which f eeds from the left appears widely patent as well. Again, no definite aneurysm was seen. Cross gena shagufta views were unremarkable. The left vertebral is small in caliber. It is patent throughout its course. The basilar is patent. No aneurysm is identified. The right vertebral is a sizable vessel. Again is widely patent. No aneurysm is seen. The puncture site was closed with manual pressure and hemostasis was obtained. The patient tolerated the procedure well and there were no complications. Conscious sedation was performed with the prescribed dosages and duration as above in the presence of an independent trained radiology nurse to assist in the monitoring of the patient. EKG and oximetry remained stable throughout the procedure. CONCLUSION: 1. Four-vessel selective angiography was performed with cross compression views. No discrete aneurysm was identified. Due to the extensive amount of hemorrhage on the patient's CT scan I would recommend this patient undergo either followup CT angiography or followup conventional angiography for further assessment. Hipolito Mccollum MD on May 21, 2017 at 16:40 Board Certified Radiologist. This report was verified electronically.
[2017-05-21] MEDS ORDERED: SODIUM CHLORID 0.9% 500 ML INJ 500 ML IV ONE (17:00)
[2017-05-21 18:52] LABS: BLOOD, URINE NEG (NEG); GLUCOSE,URINE NEG (NEG); HYALINE CAST, URINE 1 /lpf (RARE); KETONE, URINE NEG (NEG); MUCUS URINE FEW /lpf (OCC); NITRITE,URINE NEG (NEG); PH, URINE 5.5 (5.0-8.5); SQUAMOUS EPITHELIAL CELL URINE <1 /hpf (0-5); URINE COLOR YELLOW (YELLW/STRAW)
[2017-05-21 18:53] LABS: COMMENT (UR) CATH-CULT NOT IND; CULTURE IF INDICATED CATH CULTURE NOT IND
[2017-05-21 19:02] LABS: BLOOD GAS BASE EXCESS -4.3 mmol/L (-2-2); BLOOD GAS CARBOXYHEMOGLOBIN 0.7 % (0-4); BLOOD GAS HCO3 21 mmol/L (22-26); BLOOD GAS METHEMOGLOBIN 1.1 % (0-2); BLOOD GAS O2 HGB SATURATION 95 % (90-100); BLOOD GAS OXYGEN CONTENT 16.1 Vol % (12.0-20.0); BLOOD GAS PCO2 39 mmHg (38-42); BLOOD GAS PO2 94 mmHg (61-120); BLOOD GAS TOTAL HGB 11.9 G/DL (12.0-16.0); CRITICAL VALUE NO; OXYGEN DEVICE VENTILATOR; TEMP CORR TO 98.6
[2017-05-21 19:03] LABS: DRAW SITE ART LINE; FIO2 30 %; STAT NO; ULNAR PULSE PRESENT
[2017-05-21] MEDS: PRAVASTATIN SOD 40 MG TAB PO SCH (20:34)
[2017-05-22] VITALS (19 sets, daily range): BP systolic 113–165; BP diastolic 52–65; PULSE 58–82; RESP 12–20; TEMP 98.6–102.6; O2SAT 96–100
[2017-05-22] MEDS: PROPOFOL 1000 MG/100 ML IV PRN ×5 (00:36→21:33)
[2017-05-22] MEDS: fentaNYL DRIP 250 ML IV PRN ×2 (00:36→16:55)
[2017-05-22] MEDS: niMODipine 30 MG CAP PO SCH ×6 (02:19→22:11)
[2017-05-22] MEDS: CHLORHEXIDINE GLUCONATE 2 % 1 PACK (2 CLOTHS) TOP SCH (04:00)
[2017-05-22] MEDS: RESP: ALBUTEROL 2.5 MG/IPRATROPIUM 0.5 MG NEB (SCH) INH ×5 (04:05→20:02)
[2017-05-22 05:04] LABS: BLOOD GAS BASE EXCESS -2.7 mmol/L (-2-2); BLOOD GAS HCO3 22 mmol/L (22-26); BLOOD GAS METHEMOGLOBIN 1.1 % (0-2); BLOOD GAS O2 HGB SATURATION 96 % (90-100); BLOOD GAS OXYGEN CONTENT 17.3 Vol % (12.0-20.0); BLOOD GAS PCO2 42 mmHg (38-42); BLOOD GAS PO2 111 mmHg (61-120); BLOOD GAS TOTAL HGB 12.7 G/DL (12.0-16.0); CRITICAL VALUE NO; OXYGEN DEVICE VENTILATOR; TEMP CORR TO 98.6; VENT SETTINGS PRVC/AC
[2017-05-22 05:05] LABS: DRAW SITE ART LINE; FIO2 30 %; STAT NO
[2017-05-22] MEDS: ARTIFICIAL TEARS OPTH SOLN 15 ML BTL EACH EYE SCH ×3 (05:15→22:20)
[2017-05-22 05:36] LABS: AUTOMATED NEUTROPHIL # 7.6 TH/MM3 (1.8-7.7); BASOPHIL % 0.3 % (0.0-2.0); EOSINOPHIL # 0.1 TH/MM3 (0-0.4); EOSINOPHIL % 0.7 % (0.0-4.0); HEMATOCRIT 37.2 % (39.0-51.0); HEMO FLAGS DIFF FINAL; LYMPHOCYTE # 1.7 TH/MM3 (1.0-4.8); MEAN CORPUSCULAR HEMOGLOBIN 30.7 PG (27.0-34.0); MEAN CORPUSCULAR HGB CONC 33.4 % (32.0-36.0); MONO % 5.7 % (0.0-8.0); NEUT % 76.3 % (16.0-70.0); PLATELET COUNT 116 TH/MM3 (150-450); RED BLOOD COUNT 4.04 MIL/MM3 (4.50-5.90); RED CELL DISTRIBUTION WIDTH 14.2 % (11.6-17.2)
--- NOTE | 2017-05-22 05:42 | RADRPT ---
EXAM DATE/TIME: 05/22/2017 04:57 [facility] COMPARISON: CHEST SINGLE AP, May 20, 2017, 6:48. INDICATIONS : Respiratory failure. MEDICAL HISTORY : None. SURGICAL HISTORY : None. ENCOUNTER: Initial ACUITY: 3 days PAIN SCORE: Non-responsive. LOCATION: Bilateral chest FINDINGS: ET tube is seen just below the thoracic inlet at the level the clavicles 8.6 cm above the claudette. The NG tube tip is in the stomach. There is a right internal jugular central line in place with the tip overlying the SVC. The heart size is normal. There is minimal increased density medial right base. Th e left lung appears clear. CONCLUSION: Minimal atelectasis or consolidation at the medial right base. Kyree Valentin MD on May 22, 2017 at 5:39 Board Certified Radiologist. This report was verified electronically.
[2017-05-22] MEDS: NOREPINEPHRINE INJ 4 MG in SODIUM CHLOR 0.9% 250 ML INJ 246 ML IV PRN ×2 (05:49→20:21)
[2017-05-22] MEDS: INSULIN NovoLIN REGULAR SUPPLEMENTAL SCALE SQ SCH ×4 (06:00→18:00)
[2017-05-22 06:01] LABS: BICARBONATE 24.2 MEQ/L (21.0-32.0); CALCIUM-PROTEIN CORRECTED 8.1 MG/DL (8.5-10.1); MAGNESIUM 1.7 MG/DL (1.5-2.5); POTASSIUM 4.2 MEQ/L (3.5-5.1); TOTAL BILIRUBIN ADULT 0.7 MG/DL (0.2-1.0)
[2017-05-22] MEDS: levETIRAcetam INJ 500 MG in SODIUM CHLORIDE 0.9% INJ 100 ML IV SCH ×2 (06:42→18:17)
[2017-05-22] MEDS: DOCUSATE SODIUM 50 MG/SENNA 8.6 MG TAB PO SCH ×2 (08:14→20:22)
[2017-05-22] MEDS: SODIUM CHLORIDE 0.9% FLUSH 10 ML FLUSH IV FLUSH SCH ×2 (08:14→21:00)
[2017-05-22] MEDS: FAMOTIDINE 20 MG/2 ML VIAL IV PUSH SCH (08:14)
--- NOTE | 2017-05-22 09:19 | RADRPT ---
EXAM DATE/TIME: 05/22/2017 07:47 [facility] COMPARISON: US TRANSCRANIAL DOPPLER COMPLETE, May 21, 2017, 8:03. INDICATIONS : Subarachnoid hemorrhage. MEDICAL HISTORY : Headache. Subarachnoid hemorrhage. SURGICAL HISTORY : Ventriculostomy drain placement. Vasectomy. ENCOUNTER: [place] ACUITY: 3 days PAIN SCORE: Nonresponsive. LOCATION: Bilateral cranial Current Exam: May 22, 2017 [place] Ratio: Right: 1.2 Left: 1.7 [place] Ratio: Right: 1.5 Left: 1.4 Previous Exam: May 21, 2017 [place] Ratio: Right: 1.1 Left: 1.2 [place] Ratio: Right: 0.9 Left: 0.8 FINDINGS: Examination performed at bedside. Real-time ultrasound with the assistance of color and spectral Dop pler was utilized to evaluate the intracerebral circulation. Time-averaged maximal velocities are ca lculated in cm/s. Ratios are within normal limits and not significantly changed. CONCLUSION: 1. Stable examination without evidence of significant vasospasm. Isidoro Recinos MD on May 22, 2017 at 9:16 Board Certified Radiologist. This report was verified electronically.
--- NOTE | 2017-05-22 09:35 | HHI.NSPN ---
(Dillon Cross) History Chief Complaint: Intubated and sedated for diffuse SAH. (Dillon Cross) Interval History A 62-year-old gentleman who was brought to [facility] emergency room after presenting with A sudden onset of severe headache. Apparently, HE was hanging a large [place] tree and had to strain a lot and then subsequently noticed this headache which is bifrontal. He has also had some nausea and small bouts of vomiting, especially when he is moved from the stretcher to the CT scanner as well as the moment up to the intensive care unit. He denies any numbness or paresthesias in the upper or lower extremities or any double vision or blurred vision. CT scan of the head obtained reveals extensive subarachnoid hemorrhage involving the prepontine cistern, basal cisterns, suprasellar cistern, interhemispheric fissure and bilateral sylvian fissure. There is mild hydrocephalus with dilation of temporal horns noted also. Subsequent CT angiogram of the brain was obtained which does not reveal any underlying aneurysm. CTA of the neck is also negative. 05/20/17: Pt sedated on Diprivan. Pupils 2mm bilaterally, slight brisk reaction bilaterally. Ventriculostomy drain placed this morning by Dr. Jeronimo. ICPs 11. 05/21/17: Pt sedated on Diprivan and Fentanyl. Intubated. Pupils 2mm bilaterally reactive bilaterally. Ventriculostomy drain in place with blood tinged CSF at 10cm H2O. ICP 6-8. 05/22/17: Pt sedated on Diprivan and Fentanyl drips. Intubated. Ventriculostomy drain in place at [id number] with bloody CSF drainage. ICP 8-10 (Dillon Cross) System Review Comments Not able to obtain given clinical condition. (Dillon Cross) Exam Results Vital Signs Date Time Temp Pulse Resp B/P (MAP) Pulse Ox O2 Delivery O2 Flow Rate FiO2 05/22/17 08:26 100 30 05/22/17 08:00 98.6 58 12 147/65 (92) 05/22/17 07:00 Mechanical Ventilator Intake and Output 05/22/17 05/22/17 05/23/17 08:00 16:00 00:00 Intake Total 1220 ml 100 ml Output Total 870 ml Balance 350 ml 100 ml (Dillon Cross) Physical Examination General: Pt resting in bed sedated on Diprivan and Fentanyl drips, with stable vital signs. Eyes: Pupils equal. Sclera anicteric. Resp: Intubated. Pressure controlled rate 12. Peep 5. FiO2 30% Heart: NSR no murmurs Abd: Soft positive bs Skin: No cyanosis or erythema. Muscle: Pt not following while on sedation. Neuro: Pt sedated on Diprivan and Fentanyl drips. Pupils 2mm bilaterally, reactive bilaterally. Ventriculostomy in place at [id number]. ICP 8-10. (Dillon Cross) Lab, Micro, Other Results Last Impressions Transcranial Doppler Study Complete 05/22/17599 Signed Impressions: Service Date/Time: Monday, May 22, 2017 07:47 - CONCLUSION: 1. Stable examination without evidence of significant vasospasm. Isidoro Recinos MD Chest X-Ray 05/22/17599 Signed Impressions: Service Date/Time: Monday, May 22, 2017 04:57 - CONCLUSION: Minimal atelectasis or consolidation at the medial right base. Kyree Valentin MD Cerebral Arteriogram 05/21/17599 Signed Impressions: Service Date/Time: Sunday, May 21, 2017 09:48 - CONCLUSION: 1. Four-vessel selective angiography was performed with cross compression views. No discrete aneurysm was identified. Due to the extensive amount of hemorrhage on the patient's CT scan I would recommend this patient undergo either followup CT angiography or followup conventional angiography for further assessment. Hipolito Mccollum MD Head CT 05/20/17 06 Signed Impressions: Service Date/Time: Saturday, May 20, 2017 04:06 - CONCLUSION: 1. Slight interval increase in intraventricular hemorrhage compared to the prior study. The occipital horns are slightly more prominent as well. 2. The subarachnoid hemorrhage is not significantly changed. Eduardo Porter MD Neck CTA 05/19/17 0000 Signed Impressions: Service Date/Time: Friday, May 19, 2017 16:49 - CONCLUSION: Negative CTA. No focal areas of stenosis seen. Sj Carver MD Head CTA 05/19/17 0000 Signed Impressions: Service Date/Time: Friday, May 19, 2017 16:49 - CONCLUSION: No vessel truncation or aneurysm seen in this patient with extensive bilateral subarachnoid hemorrhage. The right P1 segment is not identified. Sj Carver MD Laboratory Tests Test 05/21/17 17:00 05/21/17 18:00 05/22/17 04:55 05/22/17 05:28 Blood Gas Puncture Site ART LINE ART LINE Blood Gas Patient Temperature 98.6 98.6 Blood Gas HCO3 21 mmol/L 22 mmol/L Blood Gas Base Excess -4.3 mmol/L -2.7 mmol/L Blood Gas Oxygen Saturation 95 % 96 % Arterial Blood pH 7.34 7.35 Arterial Blood Partial Pressure CO2 39 mmHg 42 mmHg Arterial Blood Partial Pressure O2 94 mmHg 111 mmHg Arterial Blood Oxygen Content 16.1 Vol % 17.3 Vol % Arterial Blood Carboxyhemoglobin 0.7 % 1.0 % Arterial Blood Methemoglobin 1.1 % 1.1 % Blood Gas Hemoglobin 11.9 G/DL 12.7 G/DL Oxygen Delivery Device VENTILATOR VENTILATOR Blood Gas Ventilator Setting PRVC/AC Blood Gas Inspired Oxygen 30 % 30 % Urine Color YELLOW Urine Turbidity HAZY Urine pH 5.5 Urine Specific [place] GREATER THAN 1.050 Urine Protein 30 mg/dL Urine Glucose (UA) NEG mg/dL Urine Ketones NEG mg/dL Urine Occult Blood NEG Urine Nitrite NEG Urine Bilirubin NEG Urine Urobilinogen LESS THAN 2.0 MG/DL Urine Leukocyte Esterase NEG Urine RBC 2 /hpf Urine WBC 1 /hpf Urine Squamous Epithelial Cells <1 /hpf Urine Hyaline Casts 1 /lpf Urine Mucus FEW /lpf Microscopic Urinalysis Comment CATH-CULT NOT IND Blood Urea Nitrogen 11 MG/DL Creatinine 0.83 MG/DL Random Glucose 130 MG/DL Total Protein 5.6 GM/DL Albumin 2.8 GM/DL Calcium Level 7.3 MG/DL Phosphorus Level 2.9 MG/DL Magnesium Level 1.7 MG/DL Alkaline Phosphatase 48 U/L Aspartate Amino Transf (AST/SGOT) 21 U/L Alanine Aminotransferase (ALT/SGPT) 29 U/L Total Bilirubin 0.7 MG/DL Sodium Level 144 MEQ/L Potassium Level 4.2 MEQ/L Chloride Level 114 MEQ/L Carbon Dioxide Level 24.2 MEQ/L Anion Gap 6 MEQ/L Estimat Glomerular Filtration Rate 94 ML/MIN Protein Corrected Calcium 8.1 MG/DL Test 05/22/17 05:30 White Blood Count 10.0 TH/MM3 Red Blood Count 4.04 MIL/MM3 Hemoglobin 12.4 GM/DL Hematocrit 37.2 % Mean Corpuscular Volume 92.0 FL Mean Corpuscular Hemoglobin 30.7 PG Mean Corpuscular Hemoglobin Concent 33.4 % Red Cell Distribution Width 14.2 % Platelet Count 116 TH/MM3 Mean Platelet Volume 8.0 FL Neutrophils (%) (Auto) 76.3 % Lymphocytes (%) (Auto) 17.0 % Monocytes (%) (Auto) 5.7 % Eosinophils (%) (Auto) 0.7 % Basophils (%) (Auto) 0.3 % Neutrophils # (Auto) 7.6 TH/MM3 Lymphocytes # (Auto) 1.7 TH/MM3 Monocytes # (Auto) 0.6 TH/MM3 Eosinophils # (Auto) 0.1 TH/MM3 Basophils # (Auto) 0.0 TH/MM3 CBC Comment DIFF FINAL Differential Comment 05/22/17 05/22/17 05/23/17 15:00 23:00 07:00 Intake Total 205 ml Balance 205 ml Intake IV Total 205 ml (Dillon Cross) Medical Decision Making Impression and Plan A: 1. Diffuse subarachnoid hemorrhage without any underlying aneurysm on CT angiogram of the brain. Follow up CTA on 05/21 again reveals no aneurysm or cause. 2. Mild early hydrocephalus. s/p ventriculostomy placement on 05/20 Pt remains in critical condition. PLAN Continue with close neuro checks Continue with ICP monitoring and treatment Continue with SCDs for DVT prophylaxis Continue with keppra for seizure prophylaxis Continue with Nimotop for vasospasm prophylaxis. Discussed care plan with critical care. Updated and brother at bedside. (Dillon Cross) Attending Statement The exam, history, and the medical decision-making described in the above note were completed with the assistance of the mid-level provider. I reviewed and agree with the findings presented. I attest that I had a [id number] encounter with the patient on the same day, and personally performed and documented my assessment and findings in the medical record. The ventriculostomy is draining well with normal ICPs. Gets agitated when sedation is weaned. Transcranial Dopplers with no vasospasm noted. Continue with supporting care and wean sedation and ventilator status as tolerated. Discussed with the at bedside. (Franky Jeronimo MD) Dillon Cross May 22, 2017 09:35 Franky Jeronimo MD May 22, 2017 17:35
[2017-05-22] MEDS: MAGNESIUM SULFATE 1 GM PREMIX 100 ML IV SCH ×2 (09:38→10:46)
--- NOTE | 2017-05-22 09:39 | HHI.CCPN ---
Subjective Remarks/Hospital Course 05/19: 62-year-old male with no significant past medical history, presents here with sudden onset headache. Patient states he was pushing up a heavy [place] tree when he had a sudden onset of bifrontal and top of his head pain. He has never experienced similar pain before. He did not pass out. He did not fell off the ladder. He reports the pain as sharp and severe. He denies any weakness of his extremities. He denies any neck pain. The patient is currently taking no medications. He has no family history of headaches or subarachnoid bleed. The CT of the head revealed extensive subarachnoid bleed supratentorial and infratentorial. Head and neck CTA both negative for aneurysm. 05/20: Patient reintubated for worsening neurologic status this morning and placed on mechanical ventilation. Neurosurgery placed a ventriculostomy. When I evaluated the patient he was sedated with propofol, orally intubated on mechanical ventilation. He had just been started on Levophed to maintain CPP. 05/21: Afebrile. Patient remains bradycardic. Currently sedated with propofol along with fentanyl drips. Tolerating tube feeding. No bowel movement. Currently not following commands but on sedation. Plan for formal cerebral arteriogram today Subjective 05/22: Afebrile. Noted negative results from's formal cerebral arteriogram yesterday. EEG revealed moderate encephalopathy however no signs of acute epileptiform activity. Tube feeds currently off with residuals around 200 cc. No bowel movement since admission. Objective Vital Signs Date Time Temp Pulse Resp B/P (MAP) Pulse Ox O2 Delivery O2 Flow Rate FiO2 05/22/17 08:26 100 30 05/22/17 07:00 Mechanical Ventilator 05/22/17 06:00 58 05/22/17 05:49 123/53 05/22/17 04:00 98.7 12 Intake and Output 05/22/17 05/22/17 05/23/17 08:00 16:00 00:00 Intake Total 1220 ml 100 ml Output Total 870 ml Balance 350 ml 100 ml Result Diagram: 05/22/17 0530 05/22/17 0528 Imaging Last Impressions Transcranial Doppler Study Complete 05/21/17 0600 Signed Impressions: Service Date/Time: Sunday, May 21, 2017 08:03 - CONCLUSION: Negative for vasospasm. Sandoval Mccollum MD FACR Cerebral Arteriogram 05/21/17599 Signed Impressions: Service Date/Time: Sunday, May 21, 2017 09:48 - CONCLUSION: 1. Four-vessel selective angiography was performed with cross compression views. No discrete aneurysm was identified. Due to the extensive amount of hemorrhage on the patient's CT scan I would recommend this patient undergo either followup CT angiography or followup conventional angiography for further assessment. Hipolito Mccollum MD Head CT 05/20/17599 Signed Impressions: Service Date/Time: Saturday, May 20, 2017 04:06 - CONCLUSION: 1. Slight interval increase in intraventricular hemorrhage compared to the prior study. The occipital horns are slightly more prominent as well. 2. The subarachnoid hemorrhage is not significantly changed. Eduardo Porter MD Chest X-Ray 05/20/17 Signed Impressions: Service Date/Time: Saturday, May 20, 2017 06:48 - CONCLUSION: 1. Intubation and placement of central venous line with no pneumothorax. 2. No acute cardiopulmonary disease. Eduardo Porter MD Neck CTA 05/19/17 Signed Impressions: Service Date/Time: Friday, May 19, 2017 16:49 - CONCLUSION: Negative CTA. No focal areas of stenosis seen. Sj Carver MD Head CTA 05/19/17 0000 Signed Impressions: Service Date/Time: Friday, May 19, 2017 16:49 - CONCLUSION: No vessel truncation or aneurysm seen in this patient with extensive bilateral subarachnoid hemorrhage. The right P1 segment is not identified. Sj Carver MD Objective Remarks GENERAL: 62-year-old male, currently orotracheally intubated SKIN: Warm and dry. No rash HEAD: Status post right ventriculostomy currently at -10 cm H2O EYES: Pupils equal and round around 2-3 mm and slightly reactive. No scleral icterus. No injection or drainage. ENT: No nasal bleeding or discharge. Mucous membranes pink and moist. Orotracheally intubated NECK: Trachea midline. No JVD. CARDIOVASCULAR: Bradycardic, RR. S1, S2. No S4. Without murmur RESPIRATORY: Clear to auscultation. Breath sounds equal bilaterally. GASTROINTESTINAL: Abdomen soft, non-tender, nondistended. Hypoactive bowel sounds are appreciated MUSCULOSKELETAL: Extremities without significant peripheral edema. No obvious deformities. NEUROLOGICAL: Cranial nerves II through XII appear grossly intact. Patient does withdrawal all 4 extremities. Currently not following commands. Currently on propofol drip at 25 mics grams per kilo per minute and fentanyl drip at 150 g an hour. Date of Insertion: May 20, 2017 Line: Central Venous Catheter Side: Right Location: Subclavian A/P Assessment and Plan NEURO/PSYCH: Subarachnoid hemorrhage Currently on propofol at 25 mics grams per kilogram per minute and fentanyl drip at 50 mg an hour for sedation/analgesia while intubated Goal of RASS -2 CT brain 05/19 revealed open infratentorial subarachnoid hemorrhage Subarachnoid blood in the sylvian fissures, anterior hemispheric fissure, brainstem and pre-pontine region CT angiogram head and neck revealed no acute aneurysm Repeat CT brain 05/20 revealed no further hemorrhage but now has developed moderate hydrocephalus with some intraventricular hemorrhage in the occipital horn Cerebral angiography 05/21 revealed no signs of vasospasm or aneurysm Dr. Jeronimo/neurosurgery placed ICP monitor. Currently at -10 cm H2O -330 cm fluid serosanguineous. ICPs currently 9 Currently on levetiracetam 500 mill grams IV twice a day for seizure prophylaxis 7 days Currently on nimodipine 60 mg by mouth every 4 hours Goal systolic blood pressure less than 140 Transcranial Dopplers daily. -05/20, /05/21. Pending today EEG 05/21 reveals moderate encephalopathy no epileptic activity Respiratory: Acute respiratory failure [facility] 12/500/06/29/29 Ventilator bundle Albuterol/ipratropium aerosols every 6 hours with albuterol aerosols every 2 hours. Dyspnea Intubated for airway protection and placed on mechanical ventilation. Spontaneous breathing trials when okay with neurosurgery. Likely there is Cardiovascular Hypotension h/o Hypertension -IV hydration with normal saline with 20 mEq of KCl 100 cc an hour - Currently on norepinephrine drip currently at 5 mics grams per minute support to maintain CPP greater than 60mm Hg GI/liver Hypoalbuminemia Start tube feeds with Jevity 1.5 and advanced to goal of 60 cc an hour per dietary's recommendations Switched to Glucerna 1.5 at 60 cc an hour per family request Famotidine for GI prophylaxis Docusate sodium/senna twice a day for bowel regimen. Add polyethylene glycol and lactulose twice daily. Questions when necessary. Added metoclopramide 5 mg IV every 8 hours 5 days for prokinetic bowel activity HEME Normocytic anemia Thrombocytopenia Monitor CBC daily. Follow trends Does not meet transfusion threshold at this time : Maintain Arellano catheter for accurate I's and O's in a critically ill patient ID: Monitor for infection RENAL: Creatinine currently within normal limits Monitor urine output Accurate I's and O's FEN: Hypocalcemia Hyperchloremia Replace electrolytes as clinically indicated per ICU electrolyte protocol DVT GI prophylaxis - Teds SCDs - No pharmacological DVT prophylaxis due to acute ICH -Famotidine for GI prophylaxis Critical Care: The total critical care time was 35 minutes. Time to perform other separately billable procedures was not included in the critical care time. Discussed with family at bedside. Discontinued atorvastatin. Adjusted tube feeds as above. Increased bowel regimen. Notified likely no spontaneous breathing trials until Segun Lima MD May 22, 2017 09:39
[2017-05-22] MEDS ORDERED: GLYCERIN ADULT 2 GM SUPP RECTAL ONE (10:00)
[2017-05-22] MEDS ORDERED: GLYCERIN ADULT 2 GM SUPP RECTAL PRN (10:00)
[2017-05-22] MEDS ORDERED: CALCIUM GLUCONATE INJ 1 GM in SODIUM CHLORIDE 0.9% INJ 100 ML IV ONE (11:00)
[2017-05-22] MEDS: NS + KCL 20 MEQ INJ 1,000 ML IV SCH ×3 (12:23→22:13)
[2017-05-22] MEDS: HALOPERIDOL LACTATE 5 MG/ML AMP IV PUSH PRN (13:07)
[2017-05-22] MEDS: ONDANSETRON HCL 4 MG/2 ML VIAL IV PUSH PRN (13:08)
[2017-05-22] MEDS: METOCLOPRAMIDE HCL 10 MG/2 ML VIAL IV PUSH SCH ×2 (14:00→22:11)
[2017-05-22 15:46] LABS: BLOOD GAS BASE EXCESS -2.5 mmol/L (-2-2); BLOOD GAS CARBOXYHEMOGLOBIN 1.3 % (0-4); BLOOD GAS HCO3 20 mmol/L (22-26); BLOOD GAS METHEMOGLOBIN 1.2 % (0-2); BLOOD GAS O2 HGB SATURATION 91 % (90-100); BLOOD GAS OXYGEN CONTENT 15.8 Vol % (12.0-20.0); BLOOD GAS PCO2 26 mmHg (38-42); BLOOD GAS PO2 59 mmHg (61-120); BLOOD GAS TOTAL HGB 12.3 G/DL (12.0-16.0); CRITICAL VALUE YES; OXYGEN DEVICE VENTILATOR; TEMP CORR TO 98.6; VENT SETTINGS 14/500/1.0/+5
[2017-05-22 15:47] LABS: DRAW SITE ART LINE; FIO2 30 %; NUMBER OF ARTERIAL PUNCTURES 0; STAT NO; ULNAR PULSE PRESENT
[2017-05-22] MEDS: ACETAMINOPHEN 650 MG/20.3 ML UDC NG PRN (16:27)
[2017-05-22] MEDS: POLYETHYLENE GLYCOL 17 GM PKG NG SCH (20:22)
[2017-05-22] MEDS: LACTULOSE SYRUP 20 GM/30 ML CUP PO SCH (20:22)
[2017-05-22] MEDS: FAMOTIDINE 20 MG TAB NG SCH (20:22)
[2017-05-23] VITALS (20 sets, daily range): BP systolic 105–155; BP diastolic 54–96; PULSE 60–88; RESP 13–17; TEMP 99.5–100.6; O2SAT 92–100
[2017-05-23] MEDS: RESP: ALBUTEROL 2.5 MG/IPRATROPIUM 0.5 MG NEB (SCH) INH ×3 (01:22→08:43)
[2017-05-23] MEDS: niMODipine 30 MG CAP PO SCH ×6 (02:00→23:17)
[2017-05-23] MEDS: CHLORHEXIDINE GLUCONATE 2 % 1 PACK (2 CLOTHS) TOP SCH (04:00)
--- NOTE | 2017-05-23 04:12 | RADRPT ---
EXAM DATE/TIME: 05/23/2017 03:01 [facility] COMPARISON: CHEST SINGLE AP, May 22, 2017, 4:57. INDICATIONS : Shortness of breath. MEDICAL HISTORY : None. SURGICAL HISTORY : None. ENCOUNTER: Subsequent ACUITY: 4 - 6 days PAIN SCORE: Non-responsive. LOCATION: Bilateral chest FINDINGS: ET tube tip is 6.6 centers from the claudette. The NG tube is directed into the stomach. There is a righ t internal jugular central line place. The heart size is normal. There is increased density in the pe rihilar regions and at the bases. CONCLUSION: Increased density in the perihilar regions likely related to pulmonary venous congestion/edema. There is hazy density at the bases especially on the right reason the possibility of effusions. Kyree Valentin MD on May 23, 2017 at 4:09 Board Certified Radiologist. This report was verified electronically.
[2017-05-23 05:05] LABS: BLOOD GAS HCO3 20 mmol/L (22-26); BLOOD GAS METHEMOGLOBIN 1.2 % (0-2); BLOOD GAS O2 HGB SATURATION 96 % (90-100); BLOOD GAS OXYGEN CONTENT 15.6 Vol % (12.0-20.0); BLOOD GAS PCO2 30 mmHg (38-42); BLOOD GAS PO2 101 mmHg (61-120); BLOOD GAS TOTAL HGB 11.4 G/DL (12.0-16.0); CRITICAL VALUE NO; DRAW SITE ALINE; FIO2 30 %; OXYGEN DEVICE VENTILATOR; STAT NO; TEMP CORR TO 98.6; ULNAR PULSE PRESENT
[2017-05-23] MEDS: METOCLOPRAMIDE HCL 10 MG/2 ML VIAL IV PUSH SCH ×3 (05:08→22:00)
[2017-05-23 05:46] LABS: HEMATOCRIT 35.8 % (39.0-51.0); MEAN CELL VOLUME 91.3 FL (80.0-100.0); MEAN CORPUSCULAR HEMOGLOBIN 30.6 PG (27.0-34.0); MEAN CORPUSCULAR HGB CONC 33.6 % (32.0-36.0); PLATELET COUNT 91 TH/MM3 (150-450); RED BLOOD COUNT 3.93 MIL/MM3 (4.50-5.90); RED CELL DISTRIBUTION WIDTH 13.9 % (11.6-17.2); WHITE BLOOD COUNT 6.9 TH/MM3 (4.0-11.0)
[2017-05-23 05:50] LABS: REVIEW FLAG AUTO DIFF
[2017-05-23] MEDS: PROPOFOL 1000 MG/100 ML IV PRN ×3 (05:56→23:30)
[2017-05-23] MEDS: INSULIN NovoLIN REGULAR SUPPLEMENTAL SCALE SQ SCH ×4 (06:00→18:13)
[2017-05-23 06:02] LABS: BICARBONATE 22.3 MEQ/L (21.0-32.0); MAGNESIUM 1.7 MG/DL (1.5-2.5); POTASSIUM 4.2 MEQ/L (3.5-5.1)
[2017-05-23] MEDS: ARTIFICIAL TEARS OPTH SOLN 15 ML BTL EACH EYE SCH ×2 (06:14→13:05)
[2017-05-23] MEDS: levETIRAcetam INJ 500 MG in SODIUM CHLORIDE 0.9% INJ 100 ML IV SCH ×2 (07:41→18:14)
[2017-05-23] MEDS: DOCUSATE SODIUM 50 MG/SENNA 8.6 MG TAB PO SCH ×2 (07:42→20:28)
[2017-05-23] MEDS: FAMOTIDINE 20 MG TAB NG SCH ×2 (07:42→20:28)
[2017-05-23] MEDS: POLYETHYLENE GLYCOL 17 GM PKG NG SCH ×2 (07:42→20:27)
[2017-05-23] MEDS: LACTULOSE SYRUP 20 GM/30 ML CUP PO SCH ×2 (07:42→20:27)
[2017-05-23] MEDS: SODIUM CHLORIDE 0.9% FLUSH 10 ML FLUSH IV FLUSH SCH ×2 (07:43→21:00)
[2017-05-23] MEDS: NS + KCL 20 MEQ INJ 1,000 ML IV SCH (08:34)
[2017-05-23] MEDS: fentaNYL DRIP 250 ML IV PRN (08:43)
[2017-05-23] MEDS ORDERED: MINERAL OIL EMULSION 55% PO ONE (10:00)
--- NOTE | 2017-05-23 10:03 | HHI.CCPN ---
Subjective Remarks/Hospital Course 05/19: 62-year-old male with no significant past medical history, presents here with sudden onset headache. Patient states he was pushing up a heavy [place] tree when he had a sudden onset of bifrontal and top of his head pain. He has never experienced similar pain before. He did not pass out. He did not fell off the ladder. He reports the pain as sharp and severe. He denies any weakness of his extremities. He denies any neck pain. The patient is currently taking no medications. He has no family history of headaches or subarachnoid bleed. The CT of the head revealed extensive subarachnoid bleed supratentorial and infratentorial. Head and neck CTA both negative for aneurysm. 05/20: Patient reintubated for worsening neurologic status this morning and placed on mechanical ventilation. Neurosurgery placed a ventriculostomy. When I evaluated the patient he was sedated with propofol, orally intubated on mechanical ventilation. He had just been started on Levophed to maintain CPP. 05/21: Afebrile. Patient remains bradycardic. Currently sedated with propofol along with fentanyl drips. Tolerating tube feeding. No bowel movement. Currently not following commands but on sedation. Plan for formal cerebral arteriogram today 05/22: Afebrile. Noted negative results from's formal cerebral arteriogram yesterday. EEG revealed moderate encephalopathy however no signs of acute epileptiform activity. Tube feeds currently off with residuals around 200 cc. No bowel movement since admission. Subjective 07/23: Episode of singultus overnight after respiratory therapy. Did resolved with vagal maneuver yesterday. No bowel movement. Tube feeds currently at 40 cc an hour. Objective Vital Signs Date Time Temp Pulse Resp B/P (MAP) Pulse Ox O2 Delivery O2 Flow Rate FiO2 05/23/17 08:43 100 30 05/23/17 08:00 74 05/23/17 08:00 99.5 13 130/60 (83) 05/23/17 07:00 Mechanical Ventilator Intake and Output 05/23/17 05/23/17 05/24/17 08:00 16:00 00:00 Intake Total 647 ml 1236 ml Output Total 740 ml Balance -93 ml 1236 ml Result Diagram: 05/23/17 0530 05/23/1730 Other Results Microbiology Date/Time Source Procedure Growth Status 05/22/17 03:55 Blood Peripheral Aerobic Blood Culture Pending Received 05/22/17 03:55 Blood Peripheral Anaerobic Blood Culture Pending Received 05/22/17 21:00 Sputum Endotracheal Gram Stain - Final Resulted 05/22/17 21:00 Sputum Endotracheal Sputum Culture Pending Resulted 05/22/17 21:00 Urine Catheterized Urine Urine Culture Pending Received Imaging Last Impressions Chest X-Ray 05/23/17599 Signed Impressions: Service Date/Time: Tuesday, May 23, 2017 03:01 - CONCLUSION: Increased density in the perihilar regions likely related to pulmonary venous congestion/edema. There is hazy density at the bases especially on the right reason the possibility of effusions. Kyree Valentin MD Transcranial Doppler Study Complete 05/22/17599 Signed Impressions: Service Date/Time: Monday, May 22, 2017 07:47 - CONCLUSION: 1. Stable examination without evidence of significant vasospasm. Isidoro Recinos MD Cerebral Arteriogram 05/21/17599 Signed Impressions: Service Date/Time: Sunday, May 21, 2017 09:48 - CONCLUSION: 1. Four-vessel selective angiography was performed with cross compression views. No discrete aneurysm was identified. Due to the extensive amount of hemorrhage on the patient's CT scan I would recommend this patient undergo either followup CT angiography or followup conventional angiography for further assessment. Hipolito Mccollum MD Head CT 05/20/17599 Signed Impressions: Service Date/Time: Saturday, May 20, 2017 04:06 - CONCLUSION: 1. Slight interval increase in intraventricular hemorrhage compared to the prior study. The occipital horns are slightly more prominent as well. 2. The subarachnoid hemorrhage is not significantly changed. Eduardo Porter MD Neck CTA 05/19/17 0000 Signed Impressions: Service Date/Time: Friday, May 19, 2017 16:49 - CONCLUSION: Negative CTA. No focal areas of stenosis seen. Sj Carver MD Head CTA 05/19/17 0000 Signed Impressions: Service Date/Time: Friday, May 19, 2017 16:49 - CONCLUSION: No vessel truncation or aneurysm seen in this patient with extensive bilateral subarachnoid hemorrhage. The right P1 segment is not identified. Sj Carver MD Objective Remarks GENERAL: 62-year-old male, currently orotracheally intubated SKIN: Warm and dry. No rash HEAD: Status post right ventriculostomy currently at -10 cm H2O EYES: Pupils equal and round around 2-3 mm and slightly reactive. No scleral icterus. No injection or drainage. ENT: No nasal bleeding or discharge. Mucous membranes pink and moist. Orotracheally intubated NECK: Trachea midline. No JVD. CARDIOVASCULAR: Bradycardic, RR. S1, S2. No S4. Without murmur RESPIRATORY: Clear to auscultation. Breath sounds equal bilaterally. GASTROINTESTINAL: Abdomen soft, non-tender, nondistended. Hypoactive bowel sounds are appreciated MUSCULOSKELETAL: Extremities without significant peripheral edema. No obvious deformities. NEUROLOGICAL: Cranial nerves II through XII appear grossly intact. Patient does withdrawal all 4 extremities. Currently not following commands. Currently on propofol drip at 20 mics grams per kilo per minute and fentanyl drip at 150 g an hour. Date of Insertion: May 20, 2017 Line: Central Venous Catheter Side: Right Location: Subclavian A/P Assessment and Plan NEURO/PSYCH: Subarachnoid hemorrhage Singultus Currently on propofol at 20 mics grams per kilogram per minute and fentanyl drip at 150 mg an hour for sedation/analgesia while intubated Goal of RASS -2 CT brain 05/19 revealed open infratentorial subarachnoid hemorrhage Subarachnoid blood in the sylvian fissures, anterior hemispheric fissure, brainstem and pre-pontine region CT angiogram head and neck revealed no acute aneurysm Repeat CT brain 05/20 revealed no further hemorrhage but now has developed moderate hydrocephalus with some intraventricular hemorrhage in the occipital horn Cerebral angiography 05/21 revealed no signs of vasospasm or aneurysm Dr. Jeronimo/neurosurgery placed ICP monitor. Currently at -10 cm H2O -322 cm fluid serosanguineous. ICPs currently 9 Currently on levetiracetam 500 mill grams IV twice a day for seizure prophylaxis 7 days Currently on nimodipine 60 mg by mouth every 4 hours Goal systolic blood pressure less than 140 Transcranial Dopplers daily. -05/20,05/21. 05/22 no vasospasm. Today's pending EEG 05/21 reveals moderate encephalopathy no epileptic activity Has received ondansetron and metoclopramide and haloperidol without success for singultus. Will give low-dose dose of chlorpromazine 25 3 times a day Respiratory: Acute respiratory failure [facility] 12/500/1/5/30 Ventilator bundle Albuterol aerosols every 2 hours. As needed Dyspnea Intubated for airway protection and placed on mechanical ventilation. Spontaneous breathing trials when okay with neurosurgery. Cardiovascular Hypotension h/o Hypertension -IV hydration with normal saline with 20 mEq of KCl 100 cc an hour - Currently on norepinephrine drip currently at 5 mics grams per minute support to maintain CPP greater than 60mm Hg GI/liver Hypoalbuminemia Start tube feeds with Jevity 1.5 and advanced to goal of 60 cc an hour per dietary's recommendations Switched to Glucerna 1.5 at 60 cc an hour per family request. Currently at 40 cc an hour Famotidine for GI prophylaxis Docusate sodium/senna twice a day for bowel regimen. Add polyethylene glycol and lactulose twice daily. Mineral oil 1 today. KUB pending today. When necessary enema.. Added metoclopramide 5 mg IV every 8 hours 5 days for prokinetic bowel activity HEME Normocytic anemia Thrombocytopenia Monitor CBC daily. Follow trends Does not meet transfusion threshold at this time : Maintain Arellano catheter for accurate I's and O's in a critically ill patient ID: Monitor for infection RENAL: Creatinine currently within normal limits Monitor urine output Accurate I's and O's FEN: Hypocalcemia Hyperchloremia Replace electrolytes as clinically indicated per ICU electrolyte protocol We'll give 2 g mag sulfate IV 1 now DVT GI prophylaxis - Teds SCDs - No pharmacological DVT prophylaxis due to acute ICH -Famotidine for GI prophylaxis Critical Care: The total critical care time was 35 minutes. Time to perform other separately billable procedures was not included in the critical care time. Discussed with family at bedside. Discontinued atorvastatin. Adjusted tube feeds as above. Increased bowel regimen. Notified likely no spontaneous breathing trials until Segun Lima MD May 23, 2017 10:03
--- NOTE | 2017-05-23 10:08 | HHI.NSPN ---
(Dillon Cross) History Chief Complaint: Intubated and sedated for diffuse SAH. (Dillon Cross) Interval History A 62-year-old gentleman who was brought to [facility] emergency room after presenting with A sudden onset of severe headache. Apparently, HE was hanging a large [place] tree and had to strain a lot and then subsequently noticed this headache which is bifrontal. He has also had some nausea and small bouts of vomiting, especially when he is moved from the stretcher to the CT scanner as well as the moment up to the intensive care unit. He denies any numbness or paresthesias in the upper or lower extremities or any double vision or blurred vision. CT scan of the head obtained reveals extensive subarachnoid hemorrhage involving the prepontine cistern, basal cisterns, suprasellar cistern, interhemispheric fissure and bilateral sylvian fissure. There is mild hydrocephalus with dilation of temporal horns noted also. Subsequent CT angiogram of the brain was obtained which does not reveal any underlying aneurysm. CTA of the neck is also negative. 05/20/17: Pt sedated on Diprivan. Pupils 2mm bilaterally, slight brisk reaction bilaterally. Ventriculostomy drain placed this morning by Dr. Jeronimo. ICPs 11. 05/21/17: Pt sedated on Diprivan and Fentanyl. Intubated. Pupils 2mm bilaterally reactive bilaterally. Ventriculostomy drain in place with blood tinged CSF at 10cm H2O. ICP 6-8. 05/22/17: Pt sedated on Diprivan and Fentanyl drips. Intubated. Ventriculostomy drain in place at [id number] with bloody CSF drainage. ICP 8-10 05/23/17: Pt sedated on Diprivan and Fentanyl drips weaning dose. Intubated. Ventriculostomy drain in place at [id number] with bloody CSF drainage. ICP 5-10 range with good waveform. (Dillon Cross) System Review Comments Not able to obtain given clinical condition. (Dillon Cross) Exam Results Vital Signs Date Time Temp Pulse Resp B/P (MAP) Pulse Ox O2 Delivery O2 Flow Rate FiO2 05/23/17 08:43 100 30 05/23/17 08:00 74 05/23/17 08:00 99.5 13 130/60 (83) 05/23/17 07:00 Mechanical Ventilator Intake and Output 05/23/17 05/23/17 05/24/17 08:00 16:00 00:00 Intake Total 647 ml 1236 ml Output Total 740 ml Balance -93 ml 1236 ml (Dillon Cross) Physical Examination General: Pt resting in bed sedated on Diprivan and Fentanyl drips, with stable vital signs. Eyes: Pupils equal. Sclera anicteric. Resp: Intubated. Pressure controlled. CTA bilaterally. Heart: NSR no murmurs Abd: Soft positive bs Skin: No cyanosis or erythema. Muscle: Pt not following while on sedation. Reportedly agitated when sedation held. Neuro: Pt sedated on Diprivan and Fentanyl drips, weaning.. Pupils 3mm bilaterally, reactive bilaterally. Ventriculostomy in place at [id number]. ICP 5- 10 with good waveform. (Dillon Cross) Lab, Micro, Other Results Last Impressions Chest X-Ray 05/23/17599 Signed Impressions: Service Date/Time: Tuesday, May 23, 2017 03:01 - CONCLUSION: Increased density in the perihilar regions likely related to pulmonary venous congestion/edema. There is hazy density at the bases especially on the right reason the possibility of effusions. Kyree Valentin MD Transcranial Doppler Study Complete 05/22/17599 Signed Impressions: Service Date/Time: Monday, May 22, 2017 07:47 - CONCLUSION: 1. Stable examination without evidence of significant vasospasm. Isidoro Recinos MD Cerebral Arteriogram 05/21/17599 Signed Impressions: Service Date/Time: Sunday, May 21, 2017 09:48 - CONCLUSION: 1. Four-vessel selective angiography was performed with cross compression views. No discrete aneurysm was identified. Due to the extensive amount of hemorrhage on the patient's CT scan I would recommend this patient undergo either followup CT angiography or followup conventional angiography for further assessment. Hipolito Mccollum MD Head CT 05/20/17 0600 Signed Impressions: Service Date/Time: Saturday, May 20, 2017 04:06 - CONCLUSION: 1. Slight interval increase in intraventricular hemorrhage compared to the prior study. The occipital horns are slightly more prominent as well. 2. The subarachnoid hemorrhage is not significantly changed. Eduardo Porter MD Neck CTA 05/19/17 0000 Signed Impressions: Service Date/Time: Friday, May 19, 2017 16:49 - CONCLUSION: Negative CTA. No focal areas of stenosis seen. Sj Carver MD Head CTA 05/19/17 0000 Signed Impressions: Service Date/Time: Friday, May 19, 2017 16:49 - CONCLUSION: No vessel truncation or aneurysm seen in this patient with extensive bilateral subarachnoid hemorrhage. The right P1 segment is not identified. Sj Carver MD Laboratory Tests Test 05/22/17 15:38 05/23/17 05:00 05/23/17 05:30 Blood Gas Puncture Site ART LINE DARREN Blood Gas Patient Temperature 98.6 98.6 Blood Gas HCO3 20 mmol/L 20 mmol/L Blood Gas Base Excess -2.5 mmol/L -4.0 mmol/L Blood Gas Oxygen Saturation 91 % 96 % Arterial Blood pH 7.50 7.43 Arterial Blood Partial Pressure CO2 26 mmHg 30 mmHg Arterial Blood Partial Pressure O2 59 mmHg 101 mmHg Arterial Blood Oxygen Content 15.8 Vol % 15.6 Vol % Arterial Blood Carboxyhemoglobin 1.3 % 1.0 % Arterial Blood Methemoglobin 1.2 % 1.2 % Blood Gas Hemoglobin 12.3 G/DL 11.4 G/DL Oxygen Delivery Device VENTILATOR VENTILATOR Blood Gas Ventilator Setting 14/500/1.0/+5 PRVC13/500/+5/1.0 Blood Gas Inspired Oxygen 30 % 30 % White Blood Count 6.9 TH/MM3 Red Blood Count 3.93 MIL/MM3 Hemoglobin 12.0 GM/DL Hematocrit 35.8 % Mean Corpuscular Volume 91.3 FL Mean Corpuscular Hemoglobin 30.6 PG Mean Corpuscular Hemoglobin Concent 33.6 % Red Cell Distribution Width 13.9 % Platelet Count 91 TH/MM3 Mean Platelet Volume 8.2 FL Blood Urea Nitrogen 14 MG/DL Creatinine 0.94 MG/DL Random Glucose 129 MG/DL Calcium Level 7.5 MG/DL Magnesium Level 1.7 MG/DL Sodium Level 143 MEQ/L Potassium Level 4.2 MEQ/L Chloride Level 114 MEQ/L Carbon Dioxide Level 22.3 MEQ/L Anion Gap 7 MEQ/L Estimat Glomerular Filtration Rate 82 ML/MIN 05/23/17 05/23/17 05/24/17 15:00 23:00 07:00 Intake Total 1341 ml Balance 1341 ml Intake IV Total 1341 ml (Dillon Cross) Medical Decision Making Impression and Plan A: 1. Diffuse subarachnoid hemorrhage without any underlying aneurysm on CT angiogram of the brain. Follow up CTA on 05/21 again reveals no aneurysm or cause. 2. Mild early hydrocephalus. s/p ventriculostomy placement on 05/20 Pt remains in critical condition. PLAN Continue with close neuro checks Continue with ICP monitoring and treatment Continue with SCDs for DVT prophylaxis Continue with keppra for seizure prophylaxis Continue with Nimotop for vasospasm prophylaxis. Updated family at bedside. Weaning vent and sedation as tolerated. (Dillon Cross) Attending Statement The exam, history, and the medical decision-making described in the above note were completed with the assistance of the mid-level provider. I reviewed and agree with the findings presented. I attest that I had a [id number] encounter with the patient on the same day, and personally performed and documented my assessment and findings in the medical record. Opens his eyes and follows simple commands when sedation is held. Ventriculostomy draining well with normal ICPs. We'll wean sedation and ventilatory status as tolerated and extubate when more alert and able to protect airway. Discussed with nursing staff and updated family at bedside. (Franky Jeronimo MD) Dillon Cross May 23, 2017 10:08 Franky Jeronimo MD May 23, 2017 12:17
[2017-05-23] MEDS: MAGNESIUM SULFATE 1 GM PREMIX 100 ML IV SCH ×2 (11:07→12:08)
--- NOTE | 2017-05-23 11:28 | RADRPT ---
EXAM DATE/TIME: 05/23/2017 10:50 [facility] COMPARISON: No previous studies available for comparison. INDICATIONS : Constipation. MEDICAL HISTORY : Headache. Subarachnoid hemorrhage. SURGICAL HISTORY : Ventriculostomy drain placement. ENCOUNTER: Subsequent ACUITY: 1 week PAIN SCORE: Non-responsive. LOCATION: Abdomen, lower quadrant. FINDINGS: Supine view of the abdomen was performed. The abdominal bowel gas pattern is normal. No abnormal ma sses, calcifications, or organomegaly is seen. The osseous structures are unremarkable. CONCLUSION: No dilated loops of bowel. No significant stool burden. Sj Post Jr., MD on May 23, 2017 at 11:25 Board Certified Radiologist. This report was verified electronically.
--- NOTE | 2017-05-23 12:06 | RADRPT ---
EXAM DATE/TIME: 05/23/2017 08:59 [facility] COMPARISON: US TRANSCRANIAL DOPPLER COMPLETE, May 22, 2017, 7:47. INDICATIONS : Subarachnoid hemorrhage. MEDICAL HISTORY : Headache. Subarachnoid hemorrhage. SURGICAL HISTORY : Ventriculostomy drain placement. Vasectomy. ENCOUNTER: Sequela ACUITY: 4-6 days PAIN SCORE: Nonresponsive. LOCATION: cranial Current Exam: May 23, 2017 [place] Ratio: Right: 1.26 Left: 2.99 Briggs Ratio: Right: 1.24 Left: 2.11 Previous Exam: May 22, 2017 [place] Ratio: Right: 1.2 Left: 1.7 Briggs Ratio: Right: 0.9 Left: 0.8 FINDINGS: Examination performed at bedside. Real-time ultrasound with the assistance of color and spectral Dop pler was utilized to evaluate the intracerebral circulation. Time-averaged maximal velocities are ca lculated in cm/s. Slow elevation of velocities on the left with increasing ratios. CONCLUSION: No significant vasospasm as yet. Slow elevation of velocities. Continued surveillance. Sandoval Mccollum MD FACR on May 23, 2017 at 12:03 Board Certified Radiologist. This report was verified electronically.
[2017-05-23] MEDS: LABETALOL HCL 100 MG/20 ML VIAL IV PUSH PRN (13:04)
[2017-05-23] MEDS: chlorproMAZINE HCL 25 MG TAB PO SCH ×2 (14:00→23:18)
[2017-05-23] MEDS ORDERED: BUMETANIDE INJ 1 MG/4 ML VIAL IV PUSH ONE (17:00)
[2017-05-23 17:16] LABS: BLOOD GAS BASE EXCESS -2.9 mmol/L (-2-2); BLOOD GAS CARBOXYHEMOGLOBIN 0.8 % (0-4); BLOOD GAS HCO3 22 mmol/L (22-26); BLOOD GAS METHEMOGLOBIN 1.1 % (0-2); BLOOD GAS O2 HGB SATURATION 93 % (90-100); BLOOD GAS OXYGEN CONTENT 15.7 Vol % (12.0-20.0); BLOOD GAS PCO2 38 mmHg (38-42); BLOOD GAS PO2 76 mmHg (61-120); BLOOD GAS TOTAL HGB 11.9 G/DL (12.0-16.0); CRITICAL VALUE NO; DRAW SITE ART LINE; FIO2 60 %; NUMBER OF ARTERIAL PUNCTURES 0; OXYGEN DEVICE VENTILATOR; STAT NO; TEMP CORR TO 98.6; ULNAR PULSE PRESENT; VENT SETTINGS PRVC/13/500/1.0/+5
--- NOTE | 2017-05-23 18:43 | RADRPT ---
EXAM DATE/TIME: 05/23/2017 17:39 [facility] COMPARISON: CHEST SINGLE AP, May 23, 2017, 3:01. INDICATIONS : Acute desaturation. MEDICAL HISTORY : Headache. Subarachnoid hemorrhage. SURGICAL HISTORY : Ventriculostomy drain placement. ENCOUNTER: Subsequent ACUITY: 4 - 6 days PAIN SCORE: Non-responsive. LOCATION: Non-responsive. FINDINGS: A single view of the chest demonstrates a persistent bibasilar haziness with right basilar consolidat ion which is densely no worse and may actually be slightly better when compared with prior. There is no pneumothorax. Life support tubes are all stable in position with an endotracheal tube appropriatel y positioned above the claudette. Nasogastric tube traverses the GE junction with the tip curled back in the gastric fundus. Heart size is normal. Osseous structures are intact. CONCLUSION: 1. Persistent bibasilar haziness, right worse than left with probable associated consolidation/effusi on, especially on the right. 2. There is definitely no worsening and there may actually be slightly improvement when compared to p rior. There is no pneumothorax. I do not have a good explanation for the patient's acute desaturation . 3. Life-support tubes remain stable in position. Jamar Perez MD on May 23, 2017 at 18:34 Board Certified Radiologist. This report was verified electronically.
[2017-05-23] MEDS: ACETAMINOPHEN 650 MG/20.3 ML UDC NG PRN (20:27)
[2017-05-23] MEDS: NOREPINEPHRINE INJ 4 MG in SODIUM CHLOR 0.9% 250 ML INJ 246 ML IV PRN (23:33)
[2017-05-24] VITALS (17 sets, daily range): BP systolic 107–146; BP diastolic 50–63; PULSE 52–68; RESP 13–16; TEMP 99.3–100; O2SAT 94–99
[2017-05-24] MEDS: niMODipine 30 MG CAP PO SCH ×6 (02:06→21:27)
[2017-05-24] MEDS: ARTIFICIAL TEARS OPTH SOLN 15 ML BTL EACH EYE SCH ×4 (02:07→21:28)
[2017-05-24] MEDS: CHLORHEXIDINE GLUCONATE 2 % 1 PACK (2 CLOTHS) TOP SCH (02:17)
[2017-05-24] MEDS: INSULIN NovoLIN REGULAR SUPPLEMENTAL SCALE SQ SCH ×4 (06:00→17:58)
[2017-05-24 06:11] LABS: HEMATOCRIT 33.1 % (39.0-51.0); MEAN CELL VOLUME 90.8 FL (80.0-100.0); MEAN CORPUSCULAR HEMOGLOBIN 30.6 PG (27.0-34.0); MEAN CORPUSCULAR HGB CONC 33.7 % (32.0-36.0); PLATELET COUNT 102 TH/MM3 (150-450); RED BLOOD COUNT 3.65 MIL/MM3 (4.50-5.90); RED CELL DISTRIBUTION WIDTH 14.4 % (11.6-17.2); REVIEW FLAG FINAL; WHITE BLOOD COUNT 7.2 TH/MM3 (4.0-11.0)
[2017-05-24] MEDS: chlorproMAZINE HCL 25 MG TAB PO SCH ×3 (06:16→21:28)
[2017-05-24] MEDS: levETIRAcetam INJ 500 MG in SODIUM CHLORIDE 0.9% INJ 100 ML IV SCH ×2 (06:17→17:58)
[2017-05-24] MEDS: METOCLOPRAMIDE HCL 10 MG/2 ML VIAL IV PUSH SCH ×3 (06:17→21:27)
[2017-05-24 06:36] LABS: BICARBONATE 26.4 MEQ/L (21.0-32.0); MAGNESIUM 2.2 MG/DL (1.5-2.5); POTASSIUM 4.1 MEQ/L (3.5-5.1)
[2017-05-24] MEDS: FAMOTIDINE 20 MG TAB NG SCH ×2 (08:33→20:07)
[2017-05-24] MEDS: LACTULOSE SYRUP 20 GM/30 ML CUP PO SCH ×2 (09:00→21:00)
[2017-05-24] MEDS: DOCUSATE SODIUM 50 MG/SENNA 8.6 MG TAB PO SCH ×2 (09:00→21:00)
[2017-05-24] MEDS: SODIUM CHLORIDE 0.9% FLUSH 10 ML FLUSH IV FLUSH SCH ×2 (09:00→21:00)
[2017-05-24] MEDS: POLYETHYLENE GLYCOL 17 GM PKG NG SCH ×2 (09:00→20:07)
--- NOTE | 2017-05-24 09:04 | HHI.NSPN ---
(Dillon Cross) History Chief Complaint: Intubated and sedated for diffuse SAH. (Dillon Cross) Interval History A 62-year-old gentleman who was brought to [facility] emergency room after presenting with A sudden onset of severe headache. Apparently, HE was hanging a large [place] tree and had to strain a lot and then subsequently noticed this headache which is bifrontal. He has also had some nausea and small bouts of vomiting, especially when he is moved from the stretcher to the CT scanner as well as the moment up to the intensive care unit. He denies any numbness or paresthesias in the upper or lower extremities or any double vision or blurred vision. CT scan of the head obtained reveals extensive subarachnoid hemorrhage involving the prepontine cistern, basal cisterns, suprasellar cistern, interhemispheric fissure and bilateral sylvian fissure. There is mild hydrocephalus with dilation of temporal horns noted also. Subsequent CT angiogram of the brain was obtained which does not reveal any underlying aneurysm. CTA of the neck is also negative. 05/20/17: Pt sedated on Diprivan. Pupils 2mm bilaterally, slight brisk reaction bilaterally. Ventriculostomy drain placed this morning by Dr. Jeronimo. ICPs 11. 05/21/17: Pt sedated on Diprivan and Fentanyl. Intubated. Pupils 2mm bilaterally reactive bilaterally. Ventriculostomy drain in place with blood tinged CSF at 10cm H2O. ICP 6-8. 05/22/17: Pt sedated on Diprivan and Fentanyl drips. Intubated. Ventriculostomy drain in place at [id number] with bloody CSF drainage. ICP 8-10 05/23/17: Pt sedated on Diprivan and Fentanyl drips weaning dose. Intubated. Ventriculostomy drain in place at [id number] with bloody CSF drainage. ICP 5-10 range with good waveform. 05/24/17: Pt sedated on Diprivan and Fentanyl drips. Held for few minutes and pt becomes very agitated. Moves all 4 extremities but not following commands secondary to agitation. (Dillon Cross) System Review Comments Not able to obtain given clinical condition. (Dillon Corss) Exam Results Vital Signs Date Time Temp Pulse Resp B/P (MAP) Pulse Ox O2 Delivery O2 Flow Rate FiO2 05/24/17 06:00 59 05/24/17 04:00 99.3 16 146/56 (86) 97 05/24/17 04:00 30 05/23/17 20:00 Mechanical Ventilator Intake and Output 05/24/17 05/24/17 05/25/17 08:00 16:00 00:00 Intake Total 772 ml Output Total 1070 ml Balance -298 ml (Dillon Cross) Physical Examination General: Pt resting in bed sedated on Diprivan and Fentanyl drips, with stable vital signs. Eyes: Pupils equal. Sclera anicteric. Bilateral scleral edema. Resp: Intubated. Pressure controlled. Rate 13. FiO2 60%. PEEP 5. CTA bilaterally. Heart: NSR no murmurs Abd: Soft positive bs Skin: No cyanosis or erythema. Muscle: Pt not following while on sedation. When sedation held pt becomes very agitated. Moves all 4 extremities. Neuro: Pt sedated on Diprivan and Fentanyl drips, weaning. Pupils 3mm bilaterally, reactive bilaterally. Ventriculostomy in place at [id number]. ICP 5- 10 with good waveform. When sedation held pt becomes very agitated. (Dillon Cross) Lab, Micro, Other Results Last Impressions Transcranial Doppler Study Complete 05/23/17 06 Signed Impressions: Service Date/Time: Tuesday, May 23, 2017 08:59 - CONCLUSION: No significant vasospasm as yet. Slow elevation of velocities. Continued surveillance. Sandoval Mccollum MD FACR Chest X-Ray 05/23/17 0600 Signed Impressions: Service Date/Time: Tuesday, May 23, 2017 03:01 - CONCLUSION: Increased density in the perihilar regions likely related to pulmonary venous congestion/edema. There is hazy density at the bases especially on the right reason the possibility of effusions. Kyree Valentin MD Abdomen X-Ray 05/23/17 0000 Signed Impressions: Service Date/Time: Tuesday, May 23, 2017 10:50 - CONCLUSION: No dilated loops of bowel. No significant stool burden. Sj Post Jr., MD Cerebral Arteriogram 05/21/17 0600 Signed Impressions: Service Date/Time: Sunday, May 21, 2017 09:48 - CONCLUSION: 1. Four-vessel selective angiography was performed with cross compression views. No discrete aneurysm was identified. Due to the extensive amount of hemorrhage on the patient's CT scan I would recommend this patient undergo either followup CT angiography or followup conventional angiography for further assessment. Hipolito Mccollum MD Head CT 05/20/17 06 Signed Impressions: Service Date/Time: Saturday, May 20, 2017 04:06 - CONCLUSION: 1. Slight interval increase in intraventricular hemorrhage compared to the prior study. The occipital horns are slightly more prominent as well. 2. The subarachnoid hemorrhage is not significantly changed. Eduardo Porter MD Neck CTA 05/19/17 0000 Signed Impressions: Service Date/Time: Friday, May 19, 2017 16:49 - CONCLUSION: Negative CTA. No focal areas of stenosis seen. Sj Carver MD Head CTA 05/19/17 0000 Signed Impressions: Service Date/Time: Friday, May 19, 2017 16:49 - CONCLUSION: No vessel truncation or aneurysm seen in this patient with extensive bilateral subarachnoid hemorrhage. The right P1 segment is not identified. Sj Carver MD Laboratory Tests Test 05/23/17 17:07 05/24/17 06:00 Blood Gas Puncture Site ART LINE Blood Gas Patient Temperature 98.6 Blood Gas HCO3 22 mmol/L Blood Gas Base Excess -2.9 mmol/L Blood Gas Oxygen Saturation 93 % Arterial Blood pH 7.37 Arterial Blood Partial Pressure CO2 38 mmHg Arterial Blood Partial Pressure O2 76 mmHg Arterial Blood Oxygen Content 15.7 Vol % Arterial Blood Carboxyhemoglobin 0.8 % Arterial Blood Methemoglobin 1.1 % Blood Gas Hemoglobin 11.9 G/DL Oxygen Delivery Device VENTILATOR Blood Gas Ventilator Setting PRVC/13/500/1.0/+5 Blood Gas Inspired Oxygen 60 % White Blood Count 7.2 TH/MM3 Red Blood Count 3.65 MIL/MM3 Hemoglobin 11.2 GM/DL Hematocrit 33.1 % Mean Corpuscular Volume 90.8 FL Mean Corpuscular Hemoglobin 30.6 PG Mean Corpuscular Hemoglobin Concent 33.7 % Red Cell Distribution Width 14.4 % Platelet Count 102 TH/MM3 Mean Platelet Volume 8.2 FL Blood Urea Nitrogen 20 MG/DL Creatinine 0.80 MG/DL Random Glucose 134 MG/DL Calcium Level 8.1 MG/DL Magnesium Level 2.2 MG/DL Sodium Level 141 MEQ/L Potassium Level 4.1 MEQ/L Chloride Level 110 MEQ/L Carbon Dioxide Level 26.4 MEQ/L Anion Gap 5 MEQ/L Estimat Glomerular Filtration Rate 98 ML/MIN 05/24/17 05/24/17 05/25/17 15:00 23:00 07:00 Intake Total 100 ml Balance 100 ml Intake IV Total 100 ml (Dillon Cross) Medical Decision Making Impression and Plan A: 1. Diffuse subarachnoid hemorrhage without any underlying aneurysm on CT angiogram of the brain. Follow up CTA on 05/21 again reveals no aneurysm or cause. 2. Mild early hydrocephalus. s/p ventriculostomy placement on 05/20 Pt remains in critical condition. PLAN Continue with close neuro checks Continue with ICP monitoring and treatment Continue with SCDs for DVT prophylaxis Continue with keppra for seizure prophylaxis Continue with Nimotop for vasospasm prophylaxis. Updated family at bedside. Weaning vent and sedation as tolerated. Follow up CTA of the brain today requested by Dr. Jeronimo and order placed. (Dillon Cross) Attending Statement The exam, history, and the medical decision-making described in the above note were completed with the assistance of the mid-level provider. I reviewed and agree with the findings presented. I attest that I had a [id number] encounter with the patient on the same day, and personally performed and documented my assessment and findings in the medical record. His ventilator and sedation status being weaned although he gets agitated when sedation is decreased. Currently on Precedex drip. Ventriculostomy draining well with blood-tinged CSF and ICPs are normal. Follow-up CT scan in the brain with no vasospasm or cerebral aneurysm noted. Continue weaning ventilator status and extubate once more alert and able to protect airway. Updated and son at the bedside. (Franky Jeronimo MD) Dillon Cross May 24, 2017 09:04 Franky Jeronimo MD May 24, 2017 17:07
--- NOTE | 2017-05-24 10:08 | RADRPT ---
EXAM DATE/TIME: 05/24/2017 09:34 [facility] COMPARISON: CHEST SINGLE AP, May 23, 2017, 17:39. INDICATIONS : Patient with respiratory failure and decreased oxygen saturation. Evaluate after adjustment of endotr acheal tube.. MEDICAL HISTORY : Headache. Subarachnoid hemorrhage SURGICAL HISTORY : Ventriculostomy drain placement. ENCOUNTER: Subsequent ACUITY: 4 - 6 days PAIN SCORE: Non-responsive. LOCATION: Bilateral chest FINDINGS: A single AP semierect portable view of the chest was obtained again demonstrating endotracheal tube i n place. The tip now lies approximately 6.6 cm above the claudette. The nasogastric tube and right inter nal jugular central venous line remain in place. The lungs are better expanded and consolidative opac ity remains in the right perihilar region right lung base. There is milder consolidation of the left lung base with air bronchograms. There is no distinct effusion. The heart size remains within normal limits. There are multiple overlying electrocardiogram leads. CONCLUSION: 1. Endotracheal tube tip now lies approximately 6.6 cm above the claudette. 2. Improved aeration with consolidation again noted in both lungs right greater than left. Eduardo Porter MD on May 24, 2017 at 10:04 Board Certified Radiologist. This report was verified electronically.
[2017-05-24] MEDS ORDERED: IOHEXOL 350 MG/ML 10 ML VIAL (for RAD DIAG) IVCONTRAST ONE (10:48)
--- NOTE | 2017-05-24 13:00 | RADRPT ---
EXAM DATE/TIME: 05/24/2017 08:45 [facility] COMPARISON: US TRANSCRANIAL DOPPLER COMPLETE, May 23, 2017, 8:59. INDICATIONS : Subarachnoid hemorrhage. MEDICAL HISTORY : Headache. Subarachnoid hemorrhage. SURGICAL HISTORY : Ventriculostomy drain placement. Vasectomy. ENCOUNTER: Sequela ACUITY: 4-6 days PAIN SCORE: Nonresponsive. LOCATION: cranial Current Exam: May 24, 2017 [place] Ratio: Right: 1.22 Left: 1.44 Briggs Ratio: Right: 0.83 Left: 0.85 Previous Exam: May 23, 2017 [place] Ratio: Right: 1.26 Left: 2.99 Briggs Ratio: Right: 1.24 Left: 2.11 FINDINGS: Examination performed at bedside. Real-time ultrasound with the assistance of color and spectral Dop pler was utilized to evaluate the intracerebral circulation. Time-averaged maximal velocities are ca lculated in cm/s. CONCLUSION: No vasospasm. Sj Post Jr., MD on May 24, 2017 at 12:04 Board Certified Radiologist. This report was verified electronically.
--- NOTE | 2017-05-24 13:27 | RADRPT ---
EXAM DATE/TIME: 05/24/2017 10:33 [facility] COMPARISON: CTA BRAIN W 3D RECON, May 19, 2017, 16:49. INDICATIONS : Evaluate subarachnoid bleed IV CONTRAST: 70 cc Omnipaque 350 (iohexol) IV RADIATION DOSE: 28.15 CTDIvol (mGy) MEDICAL HISTORY : None SURGICAL HISTORY : None. ENCOUNTER: Subsequent ACUITY: 4 - 6 days PAIN SCALE: Non-responsive LOCATION: cranial TECHNIQUE: Volumetric scanning was performed using a multi-row detector CT scanner. The data was post processed with a variety of visualization algorithms including full volume maximum intensity projection, multi -planar sliding thin slab reformation, curved planar reformation, and surface rendering techniques. Using automated exposure control and adjustment of the mA and/or kV according to patient size, radiat ion dose was kept as low as reasonably achievable to obtain optimal diagnostic quality images. DICO M format image data is available electronically for review and comparison. FINDINGS: There is excellent visualization of the major intracranial arteries out to the second-order branch ve ssels. There is persistent circulation on the right. No vasospasm. There is no evidence for an eurysm, vessel truncation or stenosis, and no evidence for vascular malformation. CONCLUSION: No aneurysm or vasospasm. Sj Post Jr., MD on May 24, 2017 at 13:19 Board Certified Radiologist. This report was verified electronically.
[2017-05-24] MEDS: PROPOFOL 1000 MG/100 ML IV PRN (13:54)
[2017-05-24] MEDS: DEXMEDETOMIDINE INJ 200 MCG in SODIUM CHLORIDE 0.9% INJ 50 ML IV PRN ×2 (14:46→18:15)
--- NOTE | 2017-05-24 15:10 | HHI.CCPN ---
Subjective Remarks/Hospital Course 05/19: 62-year-old male with no significant past medical history, presents here with sudden onset headache. Patient states he was pushing up a heavy [place] tree when he had a sudden onset of bifrontal and top of his head pain. He has never experienced similar pain before. He did not pass out. He did not fell off the ladder. He reports the pain as sharp and severe. He denies any weakness of his extremities. He denies any neck pain. The patient is currently taking no medications. He has no family history of headaches or subarachnoid bleed. The CT of the head revealed extensive subarachnoid bleed supratentorial and infratentorial. Head and neck CTA both negative for aneurysm. 05/20: Patient reintubated for worsening neurologic status this morning and placed on mechanical ventilation. Neurosurgery placed a ventriculostomy. When I evaluated the patient he was sedated with propofol, orally intubated on mechanical ventilation. He had just been started on Levophed to maintain CPP. 05/21: Afebrile. Patient remains bradycardic. Currently sedated with propofol along with fentanyl drips. Tolerating tube feeding. No bowel movement. Currently not following commands but on sedation. Plan for formal cerebral arteriogram today 05/22: Afebrile. Noted negative results from's formal cerebral arteriogram yesterday. EEG revealed moderate encephalopathy however no signs of acute epileptiform activity. Tube feeds currently off with residuals around 200 cc. No bowel movement since admission. 05/23: Episode of singultus overnight after respiratory therapy. Did resolved with vagal maneuver yesterday. No bowel movement. Tube feeds currently at 40 cc an hour. Subjective 05/24: Currently on dexmedetomidine for PSV trial. Per minute singultus. Transcanal Doppler/CTA brain revealed no acute vasospasm today 05/24. Tolerating tube feeds. Positive BM. Objective Vital Signs Date Time Temp Pulse Resp B/P (MAP) Pulse Ox O2 Delivery O2 Flow Rate FiO2 05/24/17 14:00 60 05/24/17 12:19 97 45 05/24/17 12:00 100.0 13 122/50 (74) 05/24/17 07:00 Mechanical Ventilator Intake and Output 05/24/17 05/24/17 05/25/17 08:00 16:00 00:00 Intake Total 772 ml Output Total 1070 ml Balance -298 ml Result Diagram: 05/24/1759905/24/17 06 Other Results Microbiology Date/Time Source Procedure Growth Status 05/22/17 03:55 Blood Peripheral Aerobic Blood Culture - Preliminary NO GROWTH IN 1 DAY Resulted 05/22/17 03:55 Blood Peripheral Anaerobic Blood Culture - Preliminary NO GROWTH IN 1 DAY Resulted 05/22/17 21:00 Sputum Endotracheal Gram Stain - Final Resulted 05/22/17 21:00 Sputum Endotracheal Sputum Culture - Preliminary IMMATURE GROWTH - REINCUBATE Resulted 05/22/17 21:00 Urine Catheterized Urine Urine Culture - Final NO GROWTH IN 48 HOURS. Complete Imaging Last Impressions Transcranial Doppler Study Complete 05/24/17599 Signed Impressions: Service Date/Time: April 08:45 - CONCLUSION: No vasospasm. Sj Post Jr., MD Head CTA 05/24/17 0000 Signed Impressions: Service Date/Time: April 10:33 - CONCLUSION: No aneurysm or vasospasm. Sj Post Jr., MD Chest X-Ray 05/24/17 0000 Signed Impressions: Service Date/Time: April 09:34 - CONCLUSION: 1. Endotracheal tube tip now lies approximately 6.6 cm above the claudette. 2. Improved aeration with consolidation again noted in both lungs right greater than left. Eduardo Porter MD Abdomen X-Ray 05/23/17 0000 Signed Impressions: Service Date/Time: Tuesday, May 23, 2017 10:50 - CONCLUSION: No dilated loops of bowel. No significant stool burden. Sj Post Jr., MD Cerebral Arteriogram 05/21/17599 Signed Impressions: Service Date/Time: Sunday, May 21, 2017 09:48 - CONCLUSION: 1. Four-vessel selective angiography was performed with cross compression views. No discrete aneurysm was identified. Due to the extensive amount of hemorrhage on the patient's CT scan I would recommend this patient undergo either followup CT angiography or followup conventional angiography for further assessment. Hipolito Mccollum MD Head CT 05/20/17599 Signed Impressions: Service Date/Time: Saturday, May 20, 2017 04:06 - CONCLUSION: 1. Slight interval increase in intraventricular hemorrhage compared to the prior study. The occipital horns are slightly more prominent as well. 2. The subarachnoid hemorrhage is not significantly changed. Eduardo Porter MD Neck CTA 05/19/17 0000 Signed Impressions: Service Date/Time: Friday, May 19, 2017 16:49 - CONCLUSION: Negative CTA. No focal areas of stenosis seen. Sj Carver MD Objective Remarks GENERAL: 62-year-old male, currently orotracheally intubated SKIN: Warm and dry. No rash HEAD: Status post right ventriculostomy currently at -10 cm H2O EYES: Pupils equal and round around 2-3 mm and slightly reactive. No scleral icterus. No injection or drainage. ENT: No nasal bleeding or discharge. Mucous membranes pink and moist. Orotracheally intubated NECK: Trachea midline. No JVD. CARDIOVASCULAR: Bradycardic, RR. S1, S2. No S4. Without murmur RESPIRATORY: Clear to auscultation. Breath sounds equal bilaterally. GASTROINTESTINAL: Abdomen soft, non-tender, nondistended. Hypoactive bowel sounds are appreciated MUSCULOSKELETAL: Extremities without significant peripheral edema. No obvious deformities. NEUROLOGICAL: Cranial nerves II through XII appear grossly intact. Patient does withdrawal all 4 extremities. Currently not following commands. Currently on propofol drip at 20 mics grams per kilo per minute and fentanyl drip at 50 g an hour. Urinary Catheter: Yes Assessment to: Continue Arellano insert reason: Prolonged Immobilization Vascular Central Line Catheter: Yes Assessment to: Continue Date of Insertion: May 20, 2017 Line: Central Venous Catheter Side: Right Location: Subclavian A/P Assessment and Plan NEURO/PSYCH: Subarachnoid hemorrhage Singultus Currently on propofol at 20 mics grams per kilogram per minute and fentanyl drip at 50 mg an hour for sedation/analgesia while intubated Started on dexmedetomidine in attempt to wean/PSV trial Goal of RASS -2 CT brain 05/19 revealed open infratentorial subarachnoid hemorrhage Subarachnoid blood in the sylvian fissures, anterior hemispheric fissure, brainstem and pre-pontine region CT angiogram head and neck revealed no acute aneurysm Repeat CT brain 05/20 revealed no further hemorrhage but now has developed moderate hydrocephalus with some intraventricular hemorrhage in the occipital horn Cerebral angiography 05/21 revealed no signs of vasospasm or aneurysm Dr. Jeronimo/neurosurgery placed ICP monitor. Currently at -10 cm H2O -322 cm fluid serosanguineous. ICPs currently 9 Currently on levetiracetam 500 mill grams IV twice a day for seizure prophylaxis 7 days Currently on nimodipine 60 mg by mouth every 4 hours Goal systolic blood pressure less than 140 Transcranial Dopplers daily. -05/20,05/21. 05/22 /05/23 and 05/24 no vasospasm. CTA brain no vasospasm 05/24 EEG 05/21 reveals moderate encephalopathy no epileptic activity Respiratory: Acute respiratory failure PRVC /06/29/44 Ventilator bundle Albuterol aerosols every 2 hours. As needed Dyspnea Intubated for airway protection and placed on mechanical ventilation. Spontaneous breathing trials okayed with neurosurgery. 05/23 Cardiovascular Hypotension h/o Hypertension -IV hydration with normal saline with 20 mEq of KCl 100 cc an hour. We'll discontinue today 05/24 - Currently on norepinephrine drip currently at 5 mics grams per minute support to maintain CPP greater than 60mm Hg GI/liver Hypoalbuminemia Initially started on tube feeds with Jevity 1.5 and advanced to goal of 60 cc an hour per dietary's recommendations Switched to Glucerna 1.5 at 60 cc an hour per family request. Currently at 40 cc an hour Famotidine for GI prophylaxis Docusate sodium/senna twice a day for bowel regimen. Add polyethylene glycol and lactulose twice daily. Added metoclopramide 5 mg IV every 8 hours 5 days for prokinetic bowel activity HEME Normocytic anemia Thrombocytopenia Monitor CBC daily. Follow trends Does not meet transfusion threshold at this time : Maintain Arellano catheter for accurate I's and O's in a critically ill patient ID: Monitor for infection RENAL: Creatinine currently within normal limits Monitor urine output Accurate I's and O's FEN: Hyperchloremia Replace electrolytes as clinically indicated per ICU electrolyte protocol DVT GI prophylaxis - Teds SCDs - No pharmacological DVT prophylaxis due to acute ICH -Famotidine for GI prophylaxis Critical Care: The total critical care time was 35 minutes. Time to perform other separately billable procedures was not included in the critical care time. Discussed with family at bedside. Discontinued atorvastatin. Adjusted tube feeds as above. Increased bowel regimen. Notified likely no spontaneous breathing trials until Segun Lima MD May 24, 2017 15:09
[2017-05-24] MEDS: DEXMEDETOMIDINE INJ 1,000 MCG in SODIUM CHLOR 0.9% 250 ML INJ 240 ML IV PRN (20:06)
[2017-05-24] MEDS: ACETAMINOPHEN 650 MG/20.3 ML UDC NG PRN (20:06)
[2017-05-24] MEDS: fentaNYL DRIP 250 ML IV PRN (22:36)
[2017-05-25] VITALS (19 sets, daily range): BP systolic 110–147; BP diastolic 52–60; PULSE 50–73; RESP 14–25; TEMP 99.7–101.5; O2SAT 90–98
[2017-05-25] MEDS: niMODipine 30 MG CAP PO SCH ×5 (02:45→17:42)
[2017-05-25] MEDS: CHLORHEXIDINE GLUCONATE 2 % 1 PACK (2 CLOTHS) TOP SCH (04:00)
[2017-05-25] MEDS: INSULIN NovoLIN REGULAR SUPPLEMENTAL SCALE SQ SCH ×4 (05:42→18:00)
[2017-05-25] MEDS: chlorproMAZINE HCL 25 MG TAB PO SCH ×3 (05:47→22:00)
[2017-05-25] MEDS: METOCLOPRAMIDE HCL 10 MG/2 ML VIAL IV PUSH SCH ×3 (05:47→22:00)
[2017-05-25] MEDS: levETIRAcetam INJ 500 MG in SODIUM CHLORIDE 0.9% INJ 100 ML IV SCH ×2 (05:48→17:41)
[2017-05-25] MEDS: ARTIFICIAL TEARS OPTH SOLN 15 ML BTL EACH EYE SCH ×3 (05:59→22:00)
[2017-05-25] MEDS: DEXMEDETOMIDINE INJ 1,000 MCG in SODIUM CHLOR 0.9% 250 ML INJ 240 ML IV PRN (08:00)
--- NOTE | 2017-05-25 08:48 | HHI.NSPN ---
(Dillon Cross) History Chief Complaint: Intubated and sedated for diffuse SAH. (Dillon Cross) Interval History A 62-year-old gentleman who was brought to [facility] emergency room after presenting with A sudden onset of severe headache. Apparently, HE was hanging a large [place] tree and had to strain a lot and then subsequently noticed this headache which is bifrontal. He has also had some nausea and small bouts of vomiting, especially when he is moved from the stretcher to the CT scanner as well as the moment up to the intensive care unit. He denies any numbness or paresthesias in the upper or lower extremities or any double vision or blurred vision. CT scan of the head obtained reveals extensive subarachnoid hemorrhage involving the prepontine cistern, basal cisterns, suprasellar cistern, interhemispheric fissure and bilateral sylvian fissure. There is mild hydrocephalus with dilation of temporal horns noted also. Subsequent CT angiogram of the brain was obtained which does not reveal any underlying aneurysm. CTA of the neck is also negative. 05/20/17: Pt sedated on Diprivan. Pupils 2mm bilaterally, slight brisk reaction bilaterally. Ventriculostomy drain placed this morning by Dr. Jeronimo. ICPs 11. 05/21/17: Pt sedated on Diprivan and Fentanyl. Intubated. Pupils 2mm bilaterally reactive bilaterally. Ventriculostomy drain in place with blood tinged CSF at 10cm H2O. ICP 6-8. 05/22/17: Pt sedated on Diprivan and Fentanyl drips. Intubated. Ventriculostomy drain in place at [id number] with bloody CSF drainage. ICP 8-10 05/23/17: Pt sedated on Diprivan and Fentanyl drips weaning dose. Intubated. Ventriculostomy drain in place at [id number] with bloody CSF drainage. ICP 5-10 range with good waveform. 05/24/17: Pt sedated on Diprivan and Fentanyl drips. Held for few minutes and pt becomes very agitated. Moves all 4 extremities but not following commands secondary to agitation. 05/25/17: Pt sedated on low dose Fentanyl and Precedex drips for agitation during the weaning process. Pt opens eyes. Follows some simple commands. Intubated on CPAP currently. (Dillon Cross) System Review Comments Not able to obtain given clinical condition. (Dillon Cross) Exam Results Vital Signs Date Time Temp Pulse Resp B/P (MAP) Pulse Ox O2 Delivery O2 Flow Rate FiO2 05/25/17 08:01 97 45 05/25/17 08:00 50 05/25/17 07:00 Mechanical Ventilator 05/25/17 04:00 100.2 15 125/60 (81) Intake and Output 05/25/17 05/25/17 05/26/17 08:00 16:00 00:00 Intake Total 665 ml Output Total 900 ml Balance -235 ml (Dillon Cross) Physical Examination General: Pt resting in bed sedated on low dose Fentanyl and Precedex drips, with stable vital signs. Eyes: Pupils equal. Sclera anicteric. Bilateral scleral edema. Resp: Intubated. CPAP. CTA bilaterally. Heart: NSR no murmurs Abd: Soft positive bs Skin: No cyanosis or erythema. Muscle: Pt following while on sedation. Moves all 4 extremities. Neuro: Pt sedated on low dose Fentanyl and Precedex drips. Pupils 3mm bilaterally, reactive bilaterally. Ventriculostomy in place at [id number]. ICP 1- 2 with good waveform. CSF light blood tinged. (Dillon Cross) Lab, Micro, Other Results Last Impressions Transcranial Doppler Study Complete 05/24/17 0600 Signed Impressions: Service Date/Time: April 08:45 - CONCLUSION: No vasospasm. Sj Post Jr., MD Head CTA 05/24/17 0000 Signed Impressions: Service Date/Time: April 10:33 - CONCLUSION: No aneurysm or vasospasm. Sj Post Jr., MD Chest X-Ray 05/24/17 0000 Signed Impressions: Service Date/Time: April 09:34 - CONCLUSION: 1. Endotracheal tube tip now lies approximately 6.6 cm above the claudette. 2. Improved aeration with consolidation again noted in both lungs right greater than left. Eduardo Porter MD Abdomen X-Ray 05/23/17 0000 Signed Impressions: Service Date/Time: Tuesday, May 23, 2017 10:50 - CONCLUSION: No dilated loops of bowel. No significant stool burden. Sj Post Jr., MD Cerebral Arteriogram 05/21/17 0600 Signed Impressions: Service Date/Time: Sunday, May 21, 2017 09:48 - CONCLUSION: 1. Four-vessel selective angiography was performed with cross compression views. No discrete aneurysm was identified. Due to the extensive amount of hemorrhage on the patient's CT scan I would recommend this patient undergo either followup CT angiography or followup conventional angiography for further assessment. Hipolito Mccollum MD Head CT 05/20/17 06 Signed Impressions: Service Date/Time: Saturday, May 20, 2017 04:06 - CONCLUSION: 1. Slight interval increase in intraventricular hemorrhage compared to the prior study. The occipital horns are slightly more prominent as well. 2. The subarachnoid hemorrhage is not significantly changed. Eduardo Porter MD Neck CTA 05/19/17 0000 Signed Impressions: Service Date/Time: Friday, May 19, 2017 16:49 - CONCLUSION: Negative CTA. No focal areas of stenosis seen. Sj Carver MD (Dillon Cross) Medical Decision Making Impression and Plan A: 1. Diffuse subarachnoid hemorrhage without any underlying aneurysm on CT angiogram of the brain. Follow up CTA on 05/21 again reveals no aneurysm or cause. Follow up CTAs of the brain have not revealed any aneurysm or vasospasm. 2. Mild early hydrocephalus. s/p ventriculostomy placement on 05/20 Pt remains in critical condition. PLAN Continue with close neuro checks Continue with ICP monitoring and treatment Continue with SCDs for DVT prophylaxis Continue with keppra for seizure prophylaxis Continue with Nimotop for vasospasm prophylaxis. Weaning vent and sedation as tolerated. Updated family at bedside. (Dillon Cross) Attending Statement The exam, history, and the medical decision-making described in the above note were completed with the assistance of the mid-level provider. I reviewed and agree with the findings presented. I attest that I had a [id number] encounter with the patient on the same day, and personally performed and documented my assessment and findings in the medical record. On CPAP intubated but opens eyes and follows commands. Possible extubation today for any parameters acceptable per group home counselor. We will challenge ventriculostomy at 20 cm level. Updated and son at bedside. (Franky Jeronimo MD) Dillon Cross May 25, 2017 08:48 Franky Jeronimo MD May 25, 2017 14:48
[2017-05-25] MEDS: FAMOTIDINE 20 MG TAB NG SCH ×2 (08:53→21:00)
[2017-05-25] MEDS: LACTULOSE SYRUP 20 GM/30 ML CUP PO SCH ×2 (09:00→21:00)
[2017-05-25] MEDS: POLYETHYLENE GLYCOL 17 GM PKG NG SCH ×2 (09:00→21:00)
[2017-05-25] MEDS: DOCUSATE SODIUM 50 MG/SENNA 8.6 MG TAB PO SCH ×2 (09:00→21:00)
[2017-05-25] MEDS: SODIUM CHLORIDE 0.9% FLUSH 10 ML FLUSH IV FLUSH SCH ×2 (09:00→21:00)
[2017-05-25] MEDS: RESP: ALBUTEROL 2.5 MG/3 ML NEB (PRN) NEB ×4 (10:44→23:28)
[2017-05-25] MEDS: MORPHINE SULFATE 4 MG/ML INJ IV PUSH PRN ×3 (14:12→19:58)
[2017-05-25] MEDS: LABETALOL HCL 100 MG/20 ML VIAL IV PUSH PRN (14:25)
[2017-05-25] MEDS: ACETAMINOPHEN 1000 MG/100 ML 100 ML IV PRN ×2 (16:27→21:58)
[2017-05-25] MEDS: hydrALAZINE HCL 20 MG/ML VIAL IV PRN ×3 (16:27→21:58)
--- NOTE | 2017-05-25 16:45 | HHI.CCPN ---
Subjective Remarks/Hospital Course 05/19: 62-year-old male with no significant past medical history, presents here with sudden onset headache. Patient states he was pushing up a heavy [place] tree when he had a sudden onset of bifrontal and top of his head pain. He has never experienced similar pain before. He did not pass out. He did not fell off the ladder. He reports the pain as sharp and severe. He denies any weakness of his extremities. He denies any neck pain. The patient is currently taking no medications. He has no family history of headaches or subarachnoid bleed. The CT of the head revealed extensive subarachnoid bleed supratentorial and infratentorial. Head and neck CTA both negative for aneurysm. 05/20: Patient reintubated for worsening neurologic status this morning and placed on mechanical ventilation. Neurosurgery placed a ventriculostomy. When I evaluated the patient he was sedated with propofol, orally intubated on mechanical ventilation. He had just been started on Levophed to maintain CPP. 05/21: Afebrile. Patient remains bradycardic. Currently sedated with propofol along with fentanyl drips. Tolerating tube feeding. No bowel movement. Currently not following commands but on sedation. Plan for formal cerebral arteriogram today 05/22: Afebrile. Noted negative results from's formal cerebral arteriogram yesterday. EEG revealed moderate encephalopathy however no signs of acute epileptiform activity. Tube feeds currently off with residuals around 200 cc. No bowel movement since admission. 05/23: Episode of singultus overnight after respiratory therapy. Did resolved with vagal maneuver yesterday. No bowel movement. Tube feeds currently at 40 cc an hour. 05/24: Currently on dexmedetomidine for PSV trial. Per minute singultus. Transcanal Doppler/CTA brain revealed no acute vasospasm today 05/24. Tolerating tube feeds. Positive BM. Subjective 05/25: extubated this AM after passing SBT. however, this afternoon now on NRB. still following commands. TCDs from today pending. no other changes. denies complaints. ROS negative. Objective Vital Signs Date Time Temp Pulse Resp B/P (MAP) Pulse Ox O2 Delivery O2 Flow Rate FiO2 05/25/17 14:00 70 05/25/17 12:00 100.9 20 144/60 (88) 97 05/25/17 10:44 Partial Rebreather 15.00 05/25/17 08:01 45 Intake and Output 05/25/17 05/25/17 05/26/17 08:00 16:00 00:00 Intake Total 665 ml Output Total 900 ml Balance -235 ml Result Diagram: 05/24/17 0600 05/24/17 06 Other Results Microbiology Date/Time Source Procedure Growth Status 05/22/17 21:00 Sputum Endotracheal Gram Stain - Final Complete 05/22/17 21:00 Sputum Endotracheal Sputum Culture - Final HEAVY GROWTH NORMAL RESPIRATORY [place] Complete 05/22/17 21:00 Urine Catheterized Urine Urine Culture - Final NO GROWTH IN 48 HOURS. Complete Imaging Last Impressions Transcranial Doppler Study Complete 05/24/17599 Signed Impressions: Service Date/Time: April 08:45 - CONCLUSION: No vasospasm. Sj Post Jr., MD Head CTA 05/24/17 0000 Signed Impressions: Service Date/Time: April 10:33 - CONCLUSION: No aneurysm or vasospasm. Sj Post Jr., MD Chest X-Ray 05/24/17 0000 Signed Impressions: Service Date/Time: April 09:34 - CONCLUSION: 1. Endotracheal tube tip now lies approximately 6.6 cm above the claudette. 2. Improved aeration with consolidation again noted in both lungs right greater than left. Eduardo Porter MD Abdomen X-Ray 05/23/17 0000 Signed Impressions: Service Date/Time: Tuesday, May 23, 2017 10:50 - CONCLUSION: No dilated loops of bowel. No significant stool burden. Sj Post Jr., MD Cerebral Arteriogram 05/21/17599 Signed Impressions: Service Date/Time: Sunday, May 21, 2017 09:48 - CONCLUSION: 1. Four-vessel selective angiography was performed with cross compression views. No discrete aneurysm was identified. Due to the extensive amount of hemorrhage on the patient's CT scan I would recommend this patient undergo either followup CT angiography or followup conventional angiography for further assessment. Hipolito Mccollum MD Head CT 05/20/17 06 Signed Impressions: Service Date/Time: Saturday, May 20, 2017 04:06 - CONCLUSION: 1. Slight interval increase in intraventricular hemorrhage compared to the prior study. The occipital horns are slightly more prominent as well. 2. The subarachnoid hemorrhage is not significantly changed. Eduardo Porter MD Neck CTA 05/19/17 0000 Signed Impressions: Service Date/Time: Friday, May 19, 2017 16:49 - CONCLUSION: Negative CTA. No focal areas of stenosis seen. Sj Carver MD Objective Remarks GENERAL: 62-year-old male, NRB in place, recently extubated. SKIN: Warm and dry. No rash HEAD: Status post right ventriculostomy currently at +20 cm H2O EYES: Pupils equal and round around 2-3 mm and slightly reactive. No scleral icterus. No injection or drainage. ENT: No nasal bleeding or discharge. Mucous membranes pink and moist. Orotracheally intubated NECK: Trachea midline. No JVD. CARDIOVASCULAR: normal rate, regular rhythm. RESPIRATORY: Clear to auscultation. Breath sounds equal bilaterally. GASTROINTESTINAL: Abdomen soft, non-tender, nondistended. MUSCULOSKELETAL: Extremities without significant peripheral edema. No obvious deformities. NEUROLOGICAL: Cranial nerves II through XII appear grossly intact. FC x 4. Date of Insertion: May 20, 2017 Line: Central Venous Catheter Side: Right Location: Subclavian A/P Assessment and Plan Assessment: 62yM s/p non-traumatic SAH. clinically improving. proceeded with extubation. will need swallow evaluation and aggressive pulmonary toilet. NEURO/PSYCH: Subarachnoid hemorrhage Singultus CT brain 05/19 revealed open infratentorial subarachnoid hemorrhage Subarachnoid blood in the sylvian fissures, anterior hemispheric fissure, brainstem and pre-pontine region CT angiogram head and neck revealed no acute aneurysm Repeat CT brain 05/20 revealed no further hemorrhage but now has developed moderate hydrocephalus with some intraventricular hemorrhage in the occipital horn Cerebral angiography 05/21 revealed no signs of vasospasm or aneurysm Dr. Jeronimo/neurosurgery placed ICP monitor. Currently at -10 cm H2O -322 cm fluid serosanguineous. ICPs currently 9 levetiracetam 500 mg IV twice a day for seizure prophylaxis 7 days: completed today 05/25. will d/c. nimodipine 60 mg by mouth every 4 hours Goal systolic blood pressure less than 140 Transcranial Dopplers daily. - still no evidence of vasospasm. CTA brain no vasospasm 05/24 EEG 05/21 reveals moderate encephalopathy no epileptic activity continue frequent neuro checks Respiratory: Acute hypoxic and hypercarbic respiratory failure - improving. extubated 05/25. wean o2 for goal spo2 > 90% continue prn nebs aggressive pulmonary toilet. Cardiovascular Hypotension - resolved. h/o Hypertension SL ivf. - off vasopressors. GI/liver Hypoalbuminemia intravascular volume overload Initially started on tube feeds with Jevity 1.5 and advanced to goal of 60 cc an hour per dietary's recommendations Switched to Glucerna 1.5 at 60 cc an hour per family request. Currently at 40 cc an hour Famotidine for GI prophylaxis Docusate sodium/senna twice a day for bowel regimen. Add polyethylene glycol and lactulose twice daily. Added metoclopramide 5 mg IV every 8 hours 5 days for prokinetic bowel activity early volume overload. will stop mivf and start lasix 20mg iv x 1. would not want to over-diurese given SAH, but on NRB currently, and at risk for re- intubation. swallow eval. HEME Normocytic anemia Thrombocytopenia Monitor CBC daily. Follow trends Does not meet transfusion threshold at this time : Maintain Arellano catheter for accurate I's and O's in a critically ill patient ID: Monitor for infection RENAL: Creatinine currently within normal limits Monitor urine output Accurate I's and O's FEN: Hyperchloremia Replace electrolytes as clinically indicated per ICU electrolyte protocol DVT GI prophylaxis - Teds SCDs - No pharmacological DVT prophylaxis due to acute ICH -Famotidine for GI prophylaxis Min Wang MD May 25, 2017 16:45
--- NOTE | 2017-05-25 17:35 | RADRPT ---
EXAM DATE/TIME: 05/25/2017 10:02 [place] COMPARISON: No previous studies available for comparison. INDICATIONS : Subarachnoid hemorrhage. MEDICAL HISTORY : Headache. Subarachnoid hemorrhage. SURGICAL HISTORY : Ventriculostomy drain placement. Vasectomy. ENCOUNTER: Initial ACUITY: 1 week PAIN SCORE: 8/10 LOCATION: Bilateral cranial Current Exam: May 25, 2017 [place] Ratio: Right: 2.1 Left: 2.9 [place] Ratio: Right: 1.7 Left: 0.8 Previous Exam: May 24, 2017 [place] Ratio: Right: 1.22 Left: 1.44 [place] Ratio: Right: 0.83 Left: 0.85 FINDINGS: Examination performed at bedside. Real-time ultrasound with the assistance of color and spectral Dop pler was utilized to evaluate the intracerebral circulation. Time-averaged maximal velocities are ca lculated in cm/s. Satisfactory cerebral circulatory parameters as above. CONCLUSION: No evidence of vasospasm Kyree Mohan MD on May 25, 2017 at 17:33 Board Certified Radiologist. This report was verified electronically.
[2017-05-25] MEDS ORDERED: FUROSEMIDE 20 MG/2 ML VIAL IV PUSH ONE (18:00)
[2017-05-25] MEDS: ONDANSETRON HCL 4 MG/2 ML VIAL IV PUSH PRN (19:57)
[2017-05-26] VITALS (16 sets, daily range): BP systolic 127–160; BP diastolic 61–90; PULSE 58–90; RESP 14–27; TEMP 99–100.9; O2SAT 92–100
[2017-05-26] MEDS: niMODipine 30 MG CAP PO SCH ×6 (02:27→21:02)
[2017-05-26] MEDS: CHLORHEXIDINE GLUCONATE 2 % 1 PACK (2 CLOTHS) TOP SCH (04:00)
[2017-05-26] MEDS: ACETAMINOPHEN 1000 MG/100 ML 100 ML IV PRN ×2 (04:26→14:32)
[2017-05-26 04:31] LABS: HEMATOCRIT 34.4 % (39.0-51.0); MEAN CELL VOLUME 91.4 FL (80.0-100.0); MEAN CORPUSCULAR HEMOGLOBIN 31.3 PG (27.0-34.0); MEAN CORPUSCULAR HGB CONC 34.3 % (32.0-36.0); PLATELET COUNT 139 TH/MM3 (150-450); RED BLOOD COUNT 3.76 MIL/MM3 (4.50-5.90); RED CELL DISTRIBUTION WIDTH 14.1 % (11.6-17.2); REVIEW FLAG FINAL
[2017-05-26 04:53] LABS: BICARBONATE 28.5 MEQ/L (21.0-32.0); POTASSIUM 3.7 MEQ/L (3.5-5.1)
[2017-05-26] MEDS: chlorproMAZINE HCL 25 MG TAB PO SCH ×3 (05:26→21:03)
[2017-05-26] MEDS: METOCLOPRAMIDE HCL 10 MG/2 ML VIAL IV PUSH SCH ×3 (06:00→21:03)
[2017-05-26] MEDS: INSULIN NovoLIN REGULAR SUPPLEMENTAL SCALE SQ SCH ×5 (06:00→23:03)
[2017-05-26] MEDS: ARTIFICIAL TEARS OPTH SOLN 15 ML BTL EACH EYE SCH ×3 (06:00→21:03)
[2017-05-26] MEDS: RESP: ALBUTEROL 2.5 MG/3 ML NEB (PRN) NEB (07:48)
[2017-05-26] MEDS: SODIUM CHLORIDE 0.9% FLUSH 10 ML FLUSH IV FLUSH SCH ×2 (09:00→20:01)
[2017-05-26] MEDS: FAMOTIDINE 20 MG TAB NG SCH ×2 (09:00→20:01)
[2017-05-26] MEDS: DOCUSATE SODIUM 50 MG/SENNA 8.6 MG TAB PO SCH ×2 (09:00→20:02)
[2017-05-26] MEDS: LACTULOSE SYRUP 20 GM/30 ML CUP PO SCH ×2 (09:00→20:02)
[2017-05-26] MEDS: POLYETHYLENE GLYCOL 17 GM PKG NG SCH ×2 (09:00→20:01)
--- NOTE | 2017-05-26 09:38 | HHI.NSPN ---
(Bekah King) Note Status Status: Progress Note (Bekah King) Interval History Interval History A 62-year-old gentleman who was brought to [facility] emergency room after presenting with A sudden onset of severe headache. Apparently, HE was hanging a large [place] tree and had to strain a lot and then subsequently noticed this headache which is bifrontal. He has also had some nausea and small bouts of vomiting, especially when he is moved from the stretcher to the CT scanner as well as the moment up to the intensive care unit. He denies any numbness or paresthesias in the upper or lower extremities or any double vision or blurred vision. CT scan of the head obtained reveals extensive subarachnoid hemorrhage involving the prepontine cistern, basal cisterns, suprasellar cistern, interhemispheric fissure and bilateral sylvian fissure. There is mild hydrocephalus with dilation of temporal horns noted also. Subsequent CT angiogram of the brain was obtained which does not reveal any underlying aneurysm. CTA of the neck is also negative. 05/20/17: Pt sedated on Diprivan. Pupils 2mm bilaterally, slight brisk reaction bilaterally. Ventriculostomy drain placed this morning by Dr. Jeronimo. ICPs 11. 05/21/17: Pt sedated on Diprivan and Fentanyl. Intubated. Pupils 2mm bilaterally reactive bilaterally. Ventriculostomy drain in place with blood tinged CSF at 10cm H2O. ICP 6-8. 05/22/17: Pt sedated on Diprivan and Fentanyl drips. Intubated. Ventriculostomy drain in place at [id number] with bloody CSF drainage. ICP 8-10 05/23/17: Pt sedated on Diprivan and Fentanyl drips weaning dose. Intubated. Ventriculostomy drain in place at [id number] with bloody CSF drainage. ICP 5-10 range with good waveform. 05/24/17: Pt sedated on Diprivan and Fentanyl drips. Held for few minutes and pt becomes very agitated. Moves all 4 extremities but not following commands secondary to agitation. 05/25/17: Pt sedated on low dose Fentanyl and Precedex drips for agitation during the weaning process. Pt opens eyes. Follows some simple commands. Intubated on CPAP currently. 05/26/17: ICPs overnight in the mid to high teens as high as 19. c/o mild headaches, moves all four extremities, mildly confused. nursing reports new leaking from ventriculostomy drain site. (Bekah King) Labs, Micro, & Vital Signs Results Date Time Temp Pulse Resp B/P (MAP) Pulse Ox O2 Delivery O2 Flow Rate FiO2 05/26/17 08:00 58 05/26/17 08:00 100.6 58 27 160/90 (113) 92 Arterial Line 05/26/17 07:51 97 Nasal Cannula 4.00 05/26/17 07:00 Nasal Cannula 3.00 05/26/17 06:00 75 05/26/17 04:00 100.9 74 21 149/67 (94) 94 05/26/17 04:00 74 05/26/17 02:00 75 05/26/17 00:04 96 3.00 05/26/17 00:00 100.6 75 14 127/61 (83) 96 05/26/17 00:00 76 05/25/17 22:00 61 05/25/17 20:48 95 Venturi Mask 50 05/25/17 20:13 94 Partial Rebreather 10.00 05/25/17 20:03 15 05/25/17 20:00 101.3 71 25 143/58 (86) 94 05/25/17 20:00 95 Venturi Mask 50 05/25/17 20:00 67 05/25/17 18:00 66 05/25/17 16:00 101.5 73 20 147/57 (87) 97 05/25/17 16:00 73 05/25/17 14:00 70 05/25/17 12:00 100.9 73 20 144/60 (88) 97 05/25/17 12:00 73 05/25/17 10:44 95 Partial Rebreather 15.00 05/25/17 10:25 90 Mask 12 05/25/17 10:00 54 Constitutional Vital Signs Date Time Temp Pulse Resp B/P (MAP) Pulse Ox O2 Delivery O2 Flow Rate FiO2 05/26/17 08:00 58 05/26/17 08:00 100.6 58 27 160/90 (113) 92 Arterial Line 05/26/17 07:51 97 Nasal Cannula 4.00 05/26/17 07:00 Nasal Cannula 3.00 05/26/17 06:00 75 05/26/17 04:00 100.9 74 21 149/67 (94) 94 05/26/17 04:00 74 05/26/17 02:00 75 05/26/17 00:04 96 3.00 05/26/17 00:00 100.6 75 14 127/61 (83) 96 05/26/17 00:00 76 05/25/17 22:00 61 05/25/17 20:48 95 Venturi Mask 50 05/25/17 20:13 94 Partial Rebreather 10.00 05/25/17 20:03 15 05/25/17 20:00 101.3 71 25 143/58 (86) 94 05/25/17 20:00 95 Venturi Mask 50 05/25/17 20:00 67 05/25/17 18:00 66 05/25/17 16:00 101.5 73 20 147/57 (87) 97 05/25/17 16:00 73 05/25/17 14:00 70 05/25/17 12:00 100.9 73 20 144/60 (88) 97 05/25/17 12:00 73 05/25/17 10:44 95 Partial Rebreather 15.00 05/25/17 10:25 90 Mask 12 05/25/17 10:00 54 (Bekah King) Physical Exam Awake, oriented to name, place only, not to time. Follows simple commands. CN: pupils equal, gross EOMs intact, facial motor symmetric Ventriculostomy drain in place at 20 cm H20, ICPs = 15, CSF blood tinged, there is CSF leaking noted from ventriculostomy drain site Motor: moves all four extremities grossly symmetric with good senior integration developer bilaterally Sensory: reports intact to light touch x 4 (Bekah King) Awake, oriented to name, place only, not to time. Follows simple commands. Ventriculostomy drain in place at 20 cm H20, ICPs = 15, CSF blood tinged, there is CSF leaking noted from ventriculostomy drain site Cranial nerve examination: pupils to be equal, round and reactive to light. Extra-ocular movements are intact. Facial motor and sensory function are normal and symmetrical. Gross hearing appears intact. Sternocleidomastoid and trapezius muscles are symmetrical. Other cranial nerves are intact. Neck is soft and supple with a good range of motion without pain. Muscle strength is normal in all muscle groups of both upper and lower extremities. Sensory examination is intact to light touch and pin prick in both the upper and lower extremities. Deep tendon reflexes are symmetrical in both upper and lower extremities. There is a bilateral plantar flexion response. Cerebellar examination is unremarkable, without deficits. (Lonny Anderson MD) Medications Current Medications Current Medications Medications (Trade) Dose Ordered Sig/Bam Route PRN Reason Start Time Stop Time Status Last Admin Dose Admin Sodium Chloride (NS Flush) 2 ml BID IV FLUSH 05/19/17 21:00 05/26/17 09:00 Miscellaneous Information 1 Q361D XX 05/19/17 17:30 Chlorhexidine Gluconate (Chlorhexidine 2% Cloth) Taper DAILY@04 TOP 05/20/17 04:00 05/16/18 03:59 Chlorhexidine Gluconate (Chlorhexidine 2% Cloth) 3 pack UNSCH PRN TOP HYGIENIC CARE 05/19/17 17:30 Senna/Docusate Sodium (Debo-Colace) 1 tab BID PO 05/19/17 21:00 05/23/17 20:28 Nicardipine HCl 25 mg/Sodium Chloride 250 ml @ 50 mls/hr TITRATE PRN IV Blood pressure management 05/19/17 17:30 Potassium Chloride 100 ml @ 50 mls/hr Q2H PRN IV For Potassium 2.8 - 3.2 mEq/L 05/19/17 17:45 Potassium Chloride 100 ml @ 50 mls/hr Q2H PRN IV For Potassium 2.8 - 3.2 mEq/L 05/19/17 17:45 Potassium Bicarb/ Potassium Chloride (K-Lyte Cl Eff) 50 meq UNSCH PRN PO For Potassium 3.3 - 3.5 mEq/L 05/19/17 17:45 Potassium Chloride 100 ml @ 25 mls/hr UNSCH PRN IV For Potassium 3.3 - 3.5 mEq/L 05/19/17 17:45 Potassium Chloride 100 ml @ 50 mls/hr Q2H PRN IV For Potassium 3.3 - 3.5 mEq/L 05/19/17 17:45 Magnesium Sulfate 4 gm/Sodium Chloride 100 ml @ 50 mls/hr UNSCH PRN IV For Magnesium 0.9 - 1.1 mg/dL 05/19/17 17:45 Magnesium Oxide (Mag-Ox) 800 mg UNSCH PRN PO For Magnesium 1.2 - 1.6 mg/dL 05/19/17 17:45 Magnesium Sulfate 2 gm/Sodium Chloride 100 ml @ 50 mls/hr UNSCH PRN IV For Magnesium 1.2 - 1.6 mg/dL 05/19/17 17:45 Potassium Phosphate (K-Phos) 2,000 mg Q4H PRN PO For Phosphorus < 2.5 mg/dL 05/19/17 17:45 Sodium Phosphate 30 mmol/Sodium Chloride 250 ml @ 42 mls/hr UNSCH PRN IV For Phosphorus < 2.5 mg/dL 05/19/17 17:45 Potassium Phosphate (K-Phos) 2,000 mg UNSCH PRN PO/TUBE SEE LABEL COMMENTS 05/19/17 17:45 Potassium Phosphate 30 mmol/ Sodium Chloride 260 ml @ 42 mls/hr UNSCH PRN IV SEE LABEL COMMENTS 05/19/17 17:45 Morphine Sulfate (Morphine Inj) 2 mg Q1H PRN IV PUSH pain>6 05/19/17 18:30 05/25/17 19:58 Acetaminophen/ Hydrocodone Bitart ([place] 10-325 Mg) 1 tab Q4H PRN PO pain 1-6 05/19/17 18:30 05/19/17 19:53 Lorazepam (Ativan Inj) 1 mg Q1H PRN IV PUSH SEIZURES 05/19/17 18:30 Al Hydrox/Mg Hydrox/Simethicone (Mag-Al Plus Susp Liq) 30 ml Q6H PRN PO DYSPEPSIA 05/19/17 18:30 Promethazine HCl (Phenergan Inj) 25 mg Q4H PRN IM NAUSEA OR VOMITING 05/19/17 18:30 Labetalol HCl (Trandate Inj) 10 mg Q1H PRN IV PUSH SYS BP GREATER THAN 150 MMHG 05/19/17 18:30 05/25/17 14:25 Norepinephrine Bitartrate 4 mg/ Sodium Chloride 250 ml @ 7.5 mls/hr TITRATE PRN IV Maintain MAP > 65 mmHg 05/21/17 02:00 05/23/17 23:33 Albuterol Sulfate (Albuterol Neb) 2.5 mg Q2HR NEB PRN NEB WHEEZING 05/21/17 06:45 05/26/17 07:48 Dextrose (D50w (Vial) Inj) 50 ml UNSCH PRN IV PUSH HYPOGLYCEMIA-SEE COMMENTS 05/21/17 06:45 Glucagon (Glucagon Inj) 1 mg UNSCH PRN OTHER HYPOGLYCEMIA-SEE COMMENTS 05/21/17 06:45 Insulin Human Regular (NovoLIN R SUPPLEMENTAL SCALE) 1 Q6HR SQ 05/21/17 12:00 05/23/17 18:13 Acetaminophen (Tylenol 650 Mg/ 20 ml Liq) 650 mg Q6H PRN NG fever 05/21/17 07:15 05/24/17 20:06 Artificial Tears (Tears Naturale Opth Soln) 1 drop Q8HR EACH EYE 05/21/17 14:00 05/25/17 14:00 Nimodipine (Nimotop) 60 mg Q4H PO 05/21/17 18:00 05/26/17 05:26 Lactulose (Lactulose Liq) 30 ml BID PO 05/22/17 21:00 05/23/17 20:27 Polyethylene Glycol (Miralax) 17 gm BID NG 05/22/17 21:00 05/24/17 20:07 Glycerin (Glycerin Adult Supp) 2 gm BID PRN RECTAL CONSTIPATION 05/22/17 10:00 Famotidine (Pepcid) 20 mg BID NG 05/22/17 21:00 05/25/17 08:53 Metoclopramide HCl (Reglan Inj) 5 mg Q8HR IV PUSH 05/22/17 14:00 05/27/17 13:59 05/25/17 14:02 Ondansetron HCl (Zofran Inj) 4 mg Q4H PRN IV PUSH singultus or nausea 05/22/17 12:45 05/25/17 19:57 Haloperidol Lactate (Haldol Inj) 2 mg Q6H PRN IV PUSH breakthrough singultus 05/22/17 12:45 05/22/17 13:07 Chlorpromazine (Thorazine) 25 mg Q8HR PO 05/23/17 14:00 05/25/17 05:47 Hydralazine HCl (Apresoline Inj) 10 mg Q30M PRN IV SYS BP GREATER THAN 160 MMHG 05/25/17 16:15 05/25/17 21:58 Acetaminophen 100 ml @ 400 mls/hr Q6H PRN IV TEMPERATURE 101.5 F OR GREATER 05/25/17 16:15 05/26/17 04:26 (Bekah King) Current Medications Current Medications Sodium Chloride (NS Flush) 2 ml UNSCH PRN IVF FLUSH AFTER USING IV ACCESS; Start 05/19/17 at 15:45; Status Cancel Prochlorperazine Edisylate (Compazine Inj) 10 mg ONCE ONCE IVP Last administered on 05/19/17 16:00; Start 05/19/17 at 15:45; Stop 05/19/17 at 15 :46; Status DC Hydromorphone HCl (Dilaudid Pf Inj) 1 mg ONCE ONCE IVS Last administered on 16:01; Start 05/19/17 at 15:45; Stop 05/19/17 at 15:46; Status DC Iohexol (Omnipaque 350 Inj) 85 ml STK-MED ONCE IVCONTRAST Last administered on 05/19/17 17:14; Start 05/19/17 at 17:14; Stop 05/19/17 at 17:15; Status DC Potassium Chloride/Sodium Chloride 1,000 ml @ 100 mls/hr Q10H IV Last administered on 05/23/17 08:34; Start 05/19/17 at 17:24; Stop 05/23/17 at 09 :55; Status DC Sodium Chloride (NS Flush) 2 ml UNSCH PRN IV FLUSH FLUSH AFTER USING IV ACCESS ; Start 05/19/17 at 17:30; Status Cancel Sodium Chloride (NS Flush) 2 ml BID IV FLUSH Last administered on 05/27/17 07: 37; Start 05/19/17 at 21:00 Famotidine (Pepcid Inj) 20 mg Q12HR IV PUSH Last administered on 05/22/17 08: 14; Start 05/19/17 at 21:00; Stop 05/22/17 at 09:03; Status DC Albuterol/ Ipratropium (Duoneb Neb) 1 ampule Q4HR NEB PRN INH WHEEZING; Start 05/19/17 at 17:30; Stop 05/21/17 at 06:35; Status DC Miscellaneous Information 1 Q361D XX ; Start 05/19/17 at 17:30 Chlorhexidine Gluconate (Chlorhexidine 2% Cloth) Taper DAILY@04 TOP ; Start at 04:00; Stop 05/16/18 at 03:59 Chlorhexidine Gluconate (Chlorhexidine 2% Cloth) 3 pack UNSCH PRN TOP HYGIENIC CARE; Start 05/19/17 at 17:30 Senna/Docusate Sodium (Debo-Colace) 1 tab BID PO Last administered on t 20:28; Start 05/19/17 at 21:00 Magnesium Hydroxide (Milk Of Magnesia Liq) 30 ml Q12H PRN PO Mild constipation ; Start 05/19/17 at 17:30; Stop 05/22/17 at 09:15; Status DC Sennosides (Senokot) 17.2 mg Q12H PRN PO Moderate constipation; Start at 17:30; Stop 05/22/17 at 09:15; Status DC Bisacodyl (Dulcolax Supp) 10 mg DAILY PRN RECTAL SEVERE CONSITIPATION; Start 05/19/17 at 17:30; Stop 05/22/17 at 09:15; Status DC Lactulose (Lactulose Liq) 30 ml DAILY PRN PO SEVERE CONSITIPATION; Start 05/19 at 17:30; Stop 05/22/17 at 09:15; Status DC Nicardipine HCl 25 mg/Sodium Chloride 250 ml @ 50 mls/hr TITRATE PRN IV Blood pressure management; Start 05/19/17 at 17:30 Potassium Chloride 100 ml @ 50 mls/hr Q2H PRN IV For Potassium 2.8 - 3.2 mEq/L ; Start 05/19/17 at 17:45 Potassium Chloride 100 ml @ 50 mls/hr Q2H PRN IV For Potassium 2.8 - 3.2 mEq/L ; Start 05/19/17 at 17:45 Potassium Bicarb/ Potassium Chloride (K-Lyte Cl Eff) 50 meq UNSCH PRN PO For Potassium 3.3 - 3.5 mEq/L; Start 05/19/17 at 17:45 Potassium Chloride 100 ml @ 25 mls/hr UNSCH PRN IV For Potassium 3.3 - 3.5 mEq /L Last administered on 05/27/17 15:16; Start 05/19/17 at 17:45 Potassium Chloride 100 ml @ 50 mls/hr Q2H PRN IV For Potassium 3.3 - 3.5 mEq/L ; Start 05/19/17 at 17:45 Magnesium Sulfate 4 gm/Sodium Chloride 100 ml @ 50 mls/hr UNSCH PRN IV For Magnesium 0.9 - 1.1 mg/dL; Start 05/19/17 at 17:45 Magnesium Oxide (Mag-Ox) 800 mg UNSCH PRN PO For Magnesium 1.2 - 1.6 mg/dL; Start 05/19/17 at 17:45 Magnesium Sulfate 2 gm/Sodium Chloride 100 ml @ 50 mls/hr UNSCH PRN IV For Magnesium 1.2 - 1.6 mg/dL; Start 05/19/17 at 17:45 Potassium Phosphate (K-Phos) 2,000 mg Q4H PRN PO For Phosphorus < 2.5 mg/dL; Start 05/19/17 at 17:45 Sodium Phosphate 30 mmol/Sodium Chloride 250 ml @ 42 mls/hr UNSCH PRN IV For Phosphorus < 2.5 mg/dL; Start 05/19/17 at 17:45 Potassium Phosphate (K-Phos) 2,000 mg UNSCH PRN PO/TUBE SEE LABEL COMMENTS; Start 05/19/17 at 17:45 Potassium Phosphate 30 mmol/ Sodium Chloride 260 ml @ 42 mls/hr UNSCH PRN IV SEE LABEL COMMENTS; Start 05/19/17 at 17:45 Morphine Sulfate (Morphine Inj) 2 mg Q1H PRN IV PUSH pain>6 Last administered on 05/25/17 19:58; Start 05/19/17 at 18:30 Acetaminophen/ Hydrocodone Bitart ([place] 10-325 Mg) 1 tab Q4H PRN PO pain 1-6 Last administered on 05/19/17 19:53; Start 05/19/17 at 18:30 Levetriacetam 500 mg/Sodium Chloride 105 ml @ 400 mls/hr Q12H IV Last administered on 05/25/17 17:41; Start 05/19/17 at 19:00; Stop 05/25/17 at 17: 58; Status DC Lorazepam (Ativan Inj) 1 mg Q1H PRN IV PUSH SEIZURES; Start 05/19/17 at 18:30 Docusate Sodium (Colace) 100 mg BID PO Last administered on 05/20/17 20:09; Start 05/19/17 at 21:00; Stop 05/21/17 at 06:35; Status DC Magnesium Hydroxide (Milk Of Magnesia Liq) 30 ml DAILY PRN PO CONSTIPATION; Start 05/19/17 at 18:30; Stop 05/20/17 at 16:22; Status DC Al Hydrox/Mg Hydrox/Simethicone (Mag-Al Plus Susp Liq) 30 ml Q6H PRN PO DYSPEPSIA; Start 05/19/17 at 18:30 Pantoprazole Sodium (Protonix Inj) 40 mg DAILY IVP ; Start 05/20/17 at 09:00; Stop 05/20/17 at 09:00; Status DC Ondansetron HCl (Zofran Inj) 4 mg Q6H PRN IV PUSH NAUSEA OR VOMITING Last administered on 05/19/17 18:52; Start 05/19/17 at 18:30; Stop 05/22/17 at 12 :39; Status DC Promethazine HCl (Phenergan Inj) 25 mg Q4H PRN IM NAUSEA OR VOMITING; Start at 18:30 Labetalol HCl (Trandate Inj) 10 mg Q1H PRN IV PUSH SYS BP GREATER THAN 150 MMHG Last administered on 05/27/17 00:05; Start 05/19/17 at 18:30 Acetaminophen (Tylenol) 650 mg Q4H PRN PO TEMPERATURE > 101.5 F; Start at 18:30; Stop 05/21/17 at 07:07; Status DC Albuterol Sulfate (Albuterol Neb) 2.5 mg Q4HR NEB PRN NEB WHEEZING; Start at 18:30; Stop 05/21/17 at 06:35; Status DC Nimodipine (Nimotop) 60 mg Q4HR PO Last administered on 05/21/17 14:16; Start 05/19/17 at 20:00; Stop 05/21/17 at 14:27; Status DC Fentanyl Citrate (fentaNYL INJ) 100 mcg [employer] ONCE .ROUTE ; Start 05/20/17 at 02:33; Stop 05/20/17 at 02:34; Status DC Midazolam HCl (Versed Inj) 5 mg STK-MED ONCE .ROUTE ; Start 05/20/17 at 02:34; Stop 05/20/17 at 02:35; Status DC Midazolam HCl (Versed Inj) 2 mg UNSCH X1 IV Last administered on 05/20/17 06 :30; Start 05/20/17 at 02:20; Stop 05/20/17 at 03:30; Status DC Fentanyl Citrate (fentaNYL INJ) 100 mcg UNSCH X1 IV Last administered on 05/20 06:30; Start 05/20/17 at 02:20; Stop 05/20/17 at 03:30; Status DC Pravastatin Sodium (Pravachol) 40 mg HS PO Last administered on 05/21/17 20: 34; Start 05/20/17 at 21:00; Stop 05/22/17 at 09:14; Status DC Propofol 50 ml @ As Directed STK-MED ONCE .ROUTE Last administered on 06:40; Start 05/20/17 at 06:14; Stop 05/20/17 at 06:15; Status DC Succinylcholine Chloride (Quelicin Inj) 50 mg NOW IV PUSH Last administered on 05/20/17 06:30; Start 05/20/17 at 06:00; Stop 05/20/17 at 07:00; Status DC Rocuronium [place] (Zemuron Inj) 50 mg NOW IV ; Start 05/20/17 at 06:00; Stop 05/20/17 at 07:00; Status DC Midazolam HCl (Versed Inj) 3 mg NOW IV Last administered on 05/20/17 06:40; Start 05/20/17 at 06:00; Stop 05/20/17 at 07:00; Status DC Rocuronium [place] (Zemuron Inj) 50 mg ONCE IV Last administered on 05/20/17 08:15; Start 05/20/17 at 07:45; Stop 05/20/17 at 12:00; Status DC Propofol 100 ml @ 2.52 mls/hr TITRATE PRN IV SEDATION Last administered on 13:54; Start 05/20/17 at 08:00; Stop 05/25/17 at 17:58; Status DC Sodium Chloride 1,000 ml @ 999 mls/hr Q1H1M ONCE IV Last administered on 05/20 09:45; Start 05/20/17 at 10:15; Stop 05/20/17 at 11:15; Status DC Norepinephrine Bitartrate (Levophed Inj) 4 mg STK-MED ONCE .ROUTE ; Start 05/20 at 10:35; Stop 05/20/17 at 10:36; Status DC Norepinephrine Bitartrate 250 ml @ 7.5 mls/hr TITRATE PRN IV Maintain MAP > 65 mmHg Last administered on 05/20/17 23:17; Start 05/20/17 at 11:00; Stop 05/21/17 at 01:58; Status DC Fentanyl Citrate (fentaNYL INJ) 100 mcg ONCE ONCE IV PUSH Last administered on 05/20/17 13:57; Start 05/20/17 at 13:15; Stop 05/20/17 at 13:45; Status DC Fentanyl Citrate 250 ml @ 5 mls/hr TITRATE PRN IV SEDATION Last administered on 05/24/17 22:36; Start 05/20/17 at 13:15; Stop 05/25/17 at 17:58; Status DC Norepinephrine Bitartrate 4 mg/ Sodium Chloride 250 ml @ 7.5 mls/hr TITRATE PRN IV Maintain MAP > 65 mmHg Last administered on 05/23/17 23:33; Start at 02:00 Albuterol Sulfate (Albuterol Neb) 2.5 mg Q2HR NEB PRN NEB WHEEZING Last administered on 05/26/17 07:48; Start 05/21/17 at 06:45 Albuterol/ Ipratropium (Duoneb Neb) 1 ampule Q4HR NEB INH Last administered on 05/23/17 08:43; Start 05/21/17 at 06:45; Stop 05/23/17 at 10:19; Status DC Dextrose (D50w (Vial) Inj) 50 ml UNSCH PRN IV PUSH HYPOGLYCEMIA-SEE COMMENTS; Start 05/21/17 at 06:45 Glucagon (Glucagon Inj) 1 mg UNSCH PRN OTHER HYPOGLYCEMIA-SEE COMMENTS; Start 05/21/17 at 06:45 Insulin Human Regular (NovoLIN R SUPPLEMENTAL SCALE) 1 Q6HR SQ Last administered on 05/23/17 18:13; Start 05/21/17 at 12:00 Acetaminophen (Tylenol 650 Mg/ 20 ml Liq) 650 mg Q6H PRN NG fever Last administered on 05/24/17 20:06; Start 05/21/17 at 07:15 Potassium Chloride (KCl Powder) 20 meq ONCE ONCE NG Last administered on 05/21 14:17; Start 05/21/17 at 07:15; Stop 05/21/17 at 07:16; Status DC Polyethylene Glycol (Miralax) 17 gm DAILY PO Last administered on 05/21/17 14 :17; Start 05/21/17 at 09:00; Stop 05/22/17 at 09:02; Status DC Lactulose (Lactulose Liq) 30 ml DAILY PO Last administered on 05/21/17 14:16 ; Start 05/21/17 at 09:00; Stop 05/22/17 at 09:02; Status DC Artificial Tears (Tears Naturale Opth Soln) 1 drop Q8HR EACH EYE Last administered on 05/27/17 14:17; Start 05/21/17 at 14:00 Levetriacetam 100 ml @ 400 mls/hr BOLUS ONCE IV Last administered on 10:12; Start 05/21/17 at 10:00; Stop 05/21/17 at 10:14; Status DC Iodixanol (VISIPAQUE 320 INJ (Rad Spec)) 120 ml STK-MED ONCE I-ARTERIAL ; Start 05/21/17 at 13:35; Stop 05/21/17 at 13:36; Status DC Nimodipine (Nimotop) 60 mg Q4H PO Last administered on 05/27/17 14:18; Start 05/21/17 at 18:00 Sodium Chloride 500 ml @ 500 mls/hr BOLUS ONCE IV Last administered on 17:56; Start 05/21/17 at 17:00; Stop 05/21/17 at 17:59; Status DC Calcium Gluconate 1 gm/Sodium Chloride 110 ml @ 110 mls/hr ONCE ONCE IV Last administered on 05/22/17 11:59; Start 05/22/17 at 11:00; Stop 05/22/17 at 11 :59; Status DC Magnesium Sulfate/ Dextrose 100 ml @ 100 mls/hr Q1H IV Last administered on 10:46; Start 05/22/17 at 09:00; Stop 05/22/17 at 10:59; Status DC Lactulose (Lactulose Liq) 30 ml BID PO Last administered on 05/23/17 20:27; Start 05/22/17 at 21:00 Polyethylene Glycol (Miralax) 17 gm BID NG Last administered on 05/24/17 20: 07; Start 05/22/17 at 21:00 Glycerin (Glycerin Adult Supp) 2 gm ONCE ONCE RECTAL Last administered on 09:39; Start 05/22/17 at 10:00; Stop 05/22/17 at 10:01; Status DC Glycerin (Glycerin Adult Supp) 2 gm BID PRN RECTAL CONSTIPATION; Start at 10:00 Famotidine (Pepcid) 20 mg BID NG Last administered on 05/27/17 07:37; Start 05/22/17 at 21:00 Metoclopramide HCl (Reglan Inj) 5 mg Q8HR IV PUSH Last administered on 05:39; Start 05/22/17 at 14:00; Stop 05/27/17 at 13:59; Status DC Ondansetron HCl (Zofran Inj) 4 mg Q4H PRN IV PUSH singultus or nausea Last administered on 05/25/17 19:57; Start 05/22/17 at 12:45 Haloperidol Lactate (Haldol Inj) 2 mg Q6H PRN IV PUSH breakthrough singultus Last administered on 05/27/17 00:13; Start 05/22/17 at 12:45 Mineral Oil (Kondremul Liq) 30 ml ONCE ONCE PO Last administered on 11:14; Start 05/23/17 at 10:00; Stop 05/23/17 at 10:38; Status DC Magnesium Sulfate/ Dextrose 100 ml @ 100 mls/hr Q1H IV Last administered on 12:08; Start 05/23/17 at 10:00; Stop 05/23/17 at 11:59; Status DC Chlorpromazine (Thorazine) 25 mg Q8HR PO Last administered on 05/27/17 14:18; Start 05/23/17 at 14:00 Bumetanide (Bumex Inj) 1 mg ONCE ONCE IV PUSH Last administered on 05/23/17 17:25; Start 05/23/17 at 17:00; Stop 05/23/17 at 17:01; Status DC Iohexol (Omnipaque 350 Inj) 70 ml STK-MED ONCE IVCONTRAST Last administered on 05/24/17 10:48; Start 05/24/17 at 10:48; Stop 05/24/17 at 10:49; Status DC Dexmedetomidine HCl 200 mcg/ Sodium Chloride 52 ml @ 4.73 mls/hr TITRATE PRN IV SEDATION Last administered on 05/24/17 18:15; Start 05/24/17 at 14:15; Stop 05/24/17 at 19:09; Status DC Dexmedetomidine HCl 1000 mcg/ Sodium Chloride 250 ml @ 4.55 mls/hr TITRATE PRN IV SEDATION Last administered on 05/25/17 08:00; Start 05/24/17 at 19:15; Stop 05/25/17 at 17:58; Status DC Hydralazine HCl (Apresoline Inj) 10 mg Q30M PRN IV SYS BP GREATER THAN 160 MMHG Last administered on 05/27/17 04:44; Start 05/25/17 at 16:15 Acetaminophen 100 ml @ 400 mls/hr Q6H PRN IV TEMPERATURE 101.5 F OR GREATER Last administered on 05/26/17 14:32; Start 05/25/17 at 16:15 Furosemide (Lasix Inj) 20 mg ONCE ONCE IV PUSH Last administered on 05/25/17 18:22; Start 05/25/17 at 18:00; Stop 05/25/17 at 18:01; Status DC Furosemide (Lasix Inj) 20 mg STAT ONCE IV PUSH Last administered on 05/27/17 08:22; Start 05/27/17 at 08:15; Stop 05/27/17 at 08:16; Status DC Pharmacy Profile Note 0 ml @ 0 mls/hr UNSCH OTHER ; Start 05/27/17 at 09:00 Vancomycin HCl 1250 mg/Sodium Chloride 262.5 ml @ 250 mls/hr ONCE ONCE IV ; Start 05/27/17 at 09:00; Stop 05/27/17 at 10:02; Status UNV Cefepime HCl 2000 mg/Sodium Chloride 100 ml @ 200 mls/hr Q8H IV Last administered on 05/27/17 09:10; Start 05/27/17 at 09:00 Vancomycin HCl 1750 mg/Sodium Chloride 517.5 ml @ 250 mls/hr Q12H IV Last administered on 05/27/17 10:54; Start 05/27/17 at 11:00 Miscellaneous Information SPECIFIC LAB TO BE VIVIANA... ONCE ONCE .XX ; Start 05/28 at 22:45; Stop 05/28/17 at 22:46 Magnesium Sulfate/ Dextrose 200 ml @ As Directed STK-MED ONCE .ROUTE Last administered on 05/27/17 16:11; Start 05/27/17 at 14:42; Stop 05/27/17 at 14:43 ; Status DC Metoprolol Tartrate (Lopressor Inj) 5 mg STK-MED ONCE .ROUTE Last administered on 05/27/17 14:42; Start 05/27/17 at 14:42; Stop 05/27/17 at 14:43; Status DC Magnesium Sulfate/ Dextrose 100 ml @ As Directed STK-MED ONCE .ROUTE ; Start 05/27/17 at 14:47; Stop 05/27/17 at 14:48; Status DC Magnesium Sulfate 2 gm/Sodium Chloride 104 ml @ 52 mls/hr NOW ONCE IV ; Start 05/27/17 at 15:00; Stop 05/27/17 at 16:59 (Lonny Anderson MD) Medical Decision Making MDM Remarks 62 y/o male 1. Diffuse subarachnoid hemorrhage without any underlying aneurysm on CT angiogram of the brain. serial Follow up CTAs negative for aneurysm or cause, no evidence of vasospasms 2. Mild early hydrocephalus. s/p ventriculostomy placement on 05/20, challenging ventriculostomy, ICPs mildly elevated as high as 19 overnight (Bekah King) MDM Remarks Last 48 hours Impressions Chest X-Ray 05/27/17 0000 Signed Impressions: Service Date/Time: Saturday, May 27, 2017 08:52 - CONCLUSION: Persistent bibasilar consolidation. Dillon Spring MD Transcranial Doppler Study Complete 05/26/17 0600 Signed Impressions: Service Date/Time: Friday, May 26, 2017 08:35 - CONCLUSION: No definite evidence of vasospasm. Dillon Spring MD (Lonny Anderson MD) Plan Plan Remarks continue with close neuro checks in ISC cont ventriculostomy draining decreased level to 5 cm H20 due to leaking from EVD site, dressing replaced, cont with ICP monitoring Nimotop for vasospasm prophylaxis, f/u serial TCDs dw family in room, their questions answered (Bekah Kign) Attending Statement As above Continue neuro checks. TCD today Pulmonary.. Continue aggressive pulmonary toilette, nasotracheal suction, and breathing treatments with nebulizers. Nutrition. NPO Renal. monitor closely urine output, BUN and creatinine Endocrine. Monitor serial Acu checks and SSI as needed in detail ID monitor for signs of infection Protonix for stress ulcer prophylaxis Fernando hose and SCD's for DVT prophylaxis The exam, history, and the medical decision-making described in the above note were completed with the assistance of the mid-level provider. I reviewed and agree with the findings presented. I attest that I had a [id number] encounter with the patient on the same day, and personally performed and documented my assessment and findings in the medical record. (Lonny Anderson MD) Bekah King May 26, 2017 09:38 Lonny Anderson MD May 27, 2017 16:48
--- NOTE | 2017-05-26 11:52 | RADRPT ---
EXAM DATE/TIME: 05/26/2017 08:35 [facility] COMPARISON: US TRANSCRANIAL DOPPLER COMPLETE, May 25, 2017, 10:02. INDICATIONS : Subarachnoid hemorrhage. MEDICAL HISTORY : Headache. Subarachnoid hemorrhage. SURGICAL HISTORY : Ventriculostomy drain placement. Vasectomy. ENCOUNTER: Subsequent ACUITY: 4-6 days PAIN SCORE: 0/10 LOCATION: Bilateral cranial Current Exam: May 26, 2017 [place] Ratio: Right: 2.5 Left: 2.8 [place] Ratio: Right: 2.2 Left: 1.4 Previous Exam: May 25, 2017 [place] Ratio: Right: 2.1 Left: 2.9 [place] Ratio: Right: 1.7 Left: 0.8 FINDINGS: Examination performed at bedside. Real-time ultrasound with the assistance of color and spectral Dop pler was utilized to evaluate the intracerebral circulation. Time-averaged maximal velocities are ca lculated in cm/s. Right posterior cerebral artery not visualized, remaining vessels are seen.. CONCLUSION: No definite evidence of vasospasm. Dillon Spring MD on May 26, 2017 at 11:47 Board Certified Radiologist. This report was verified electronically.
--- NOTE | 2017-05-26 15:33 | HHI.CCPN ---
Subjective Remarks/Hospital Course 05/19: 62-year-old male with no significant past medical history, presents here with sudden onset headache. Patient states he was pushing up a heavy [place] tree when he had a sudden onset of bifrontal and top of his head pain. He has never experienced similar pain before. He did not pass out. He did not fell off the ladder. He reports the pain as sharp and severe. He denies any weakness of his extremities. He denies any neck pain. The patient is currently taking no medications. He has no family history of headaches or subarachnoid bleed. The CT of the head revealed extensive subarachnoid bleed supratentorial and infratentorial. Head and neck CTA both negative for aneurysm. 05/20: Patient reintubated for worsening neurologic status this morning and placed on mechanical ventilation. Neurosurgery placed a ventriculostomy. When I evaluated the patient he was sedated with propofol, orally intubated on mechanical ventilation. He had just been started on Levophed to maintain CPP. 05/21: Afebrile. Patient remains bradycardic. Currently sedated with propofol along with fentanyl drips. Tolerating tube feeding. No bowel movement. Currently not following commands but on sedation. Plan for formal cerebral arteriogram today 05/22: Afebrile. Noted negative results from's formal cerebral arteriogram yesterday. EEG revealed moderate encephalopathy however no signs of acute epileptiform activity. Tube feeds currently off with residuals around 200 cc. No bowel movement since admission. 05/23: Episode of singultus overnight after respiratory therapy. Did resolved with vagal maneuver yesterday. No bowel movement. Tube feeds currently at 40 cc an hour. 05/24: Currently on dexmedetomidine for PSV trial. Per minute singultus. Transcanal Doppler/CTA brain revealed no acute vasospasm today 05/24. Tolerating tube feeds. Positive BM. 05/25: extubated this AM after passing SBT. however, this afternoon now on NRB. still following commands. TCDs from today pending. no other changes. denies complaints. ROS negative. Subjective 05/26: doing well, on NC o2. diuresed well yesterday. TCDs negative for vasospasm. clinical exam stable. ROS negative. had some headache with challenging of EVD yesterday, EVD lowered to 5 today. Objective Vital Signs Date Time Temp Pulse Resp B/P (MAP) Pulse Ox O2 Delivery O2 Flow Rate FiO2 05/26/17 14:00 78 05/26/17 12:00 100.8 17 133/63 (86) 98 05/26/17 07:51 Nasal Cannula 4.00 05/25/17 20:48 50 Intake and Output 05/26/17 05/26/17 05/27/17 08:00 16:00 00:00 Output Total 1345 ml Balance -1345 ml Result Diagram: 05/26/17 04205/26/17 0420 Imaging Last Impressions Transcranial Doppler Study Complete 05/24/17 06 Signed Impressions: Service Date/Time: April 08:45 - CONCLUSION: No vasospasm. Sj Post Jr., MD Head CTA 05/24/17 0000 Signed Impressions: Service Date/Time: April 10:33 - CONCLUSION: No aneurysm or vasospasm. Sj Post Jr., MD Chest X-Ray 05/24/17 0000 Signed Impressions: Service Date/Time: April 09:34 - CONCLUSION: 1. Endotracheal tube tip now lies approximately 6.6 cm above the claudette. 2. Improved aeration with consolidation again noted in both lungs right greater than left. Eduardo Porter MD Abdomen X-Ray 05/23/17 0000 Signed Impressions: Service Date/Time: Tuesday, May 23, 2017 10:50 - CONCLUSION: No dilated loops of bowel. No significant stool burden. Sj Post Jr., MD Cerebral Arteriogram 05/21/17 06 Signed Impressions: Service Date/Time: Sunday, May 21, 2017 09:48 - CONCLUSION: 1. Four-vessel selective angiography was performed with cross compression views. No discrete aneurysm was identified. Due to the extensive amount of hemorrhage on the patient's CT scan I would recommend this patient undergo either followup CT angiography or followup conventional angiography for further assessment. Hipolito Mccollum MD Head CT 05/20/17 0600 Signed Impressions: Service Date/Time: Saturday, May 20, 2017 04:06 - CONCLUSION: 1. Slight interval increase in intraventricular hemorrhage compared to the prior study. The occipital horns are slightly more prominent as well. 2. The subarachnoid hemorrhage is not significantly changed. Eduardo Porter MD Neck CTA 05/19/17 0000 Signed Impressions: Service Date/Time: Friday, May 19, 2017 16:49 - CONCLUSION: Negative CTA. No focal areas of stenosis seen. Sj Carver MD Objective Remarks GENERAL: 62-year-old male, sitting in bed. SKIN: Warm and dry. No rash HEAD: right ventriculostomy currently at +5 cm H2O EYES: Pupils equal and round around 2-3 mm and slightly reactive. No scleral icterus. No injection or drainage. ENT: No nasal bleeding or discharge. Mucous membranes pink and moist. nc o2. NECK: Trachea midline. No JVD. CARDIOVASCULAR: normal rate, regular rhythm. RESPIRATORY: Clear to auscultation. Breath sounds equal bilaterally. GASTROINTESTINAL: Abdomen soft, non-tender, nondistended. MUSCULOSKELETAL: Extremities without significant peripheral edema. No obvious deformities. NEUROLOGICAL: Cranial nerves II through XII appear grossly intact. FC x 4. no neuro deficits. Date of Insertion: May 20, 2017 Line: Central Venous Catheter Side: Right Location: Subclavian A/P Assessment and Plan Assessment: 62yM s/p non-traumatic SAH. clinically improving. continue aggressive pulmonary toilet. cautious mobilization, can get OOB with assist a few times a day. PT consult. EVD management per nsgy. keep in ICU: still in vasospasm window. NEURO/PSYCH: Subarachnoid hemorrhage Singultus CT brain 05/19 revealed open infratentorial subarachnoid hemorrhage Subarachnoid blood in the sylvian fissures, anterior hemispheric fissure, brainstem and pre-pontine region CT angiogram head and neck revealed no acute aneurysm Repeat CT brain 05/20 revealed no further hemorrhage but now has developed moderate hydrocephalus with some intraventricular hemorrhage in the occipital horn Cerebral angiography 05/21 revealed no signs of vasospasm or aneurysm CTA brain no vasospasm 05/24 Dr. Jeronimo/neurosurgery placed ICP monitor. EVD lowered to +5 after headache symptoms. management per nsgy. s/p 7 days keppra ppx 05/19 - 05/25. nimodipine 60 mg by mouth every 4 hours Goal systolic blood pressure less than 140 Transcranial Dopplers daily. - still no evidence of vasospasm. EEG 05/21 reveals moderate encephalopathy no epileptic activity continue frequent neuro checks Respiratory: Acute hypoxic and hypercarbic respiratory failure - improving. extubated 05/25. wean o2 for goal spo2 > 90% continue prn nebs aggressive pulmonary toilet. PT consult Cardiovascular Hypotension - resolved. h/o Hypertension SL ivf. - off vasopressors. GI/liver Hypoalbuminemia intravascular volume overload - improving. swallow eval: mechanical soft, re-eval daily. Docusate sodium/senna twice a day for bowel regimen. Add polyethylene glycol and lactulose twice daily. metoclopramide 5 mg IV every 8 hours 5 days for prokinetic bowel activity hold on further forced diuresis. HEME Normocytic anemia Thrombocytopenia Monitor CBC daily. Follow trends Does not meet transfusion threshold at this time : d/c cardenas: place condom cath. ID: Monitor for infection RENAL: Creatinine currently within normal limits Monitor urine output Accurate I's and O's FEN: Hyperchloremia Replace electrolytes as clinically indicated per ICU electrolyte protocol DVT GI prophylaxis - Teds SCDs - No pharmacological DVT prophylaxis due to acute ICH -Famotidine for GI prophylaxis Min Wang MD May 26, 2017 15:33
[2017-05-26] MEDS: hydrALAZINE HCL 20 MG/ML VIAL IV PRN (23:03)
[2017-05-27] VITALS (14 sets, daily range): BP systolic 129–167; BP diastolic 66–77; PULSE 74–108; RESP 24–40; TEMP 98.1–101.2; O2SAT 89–99
[2017-05-27] MEDS: LABETALOL HCL 100 MG/20 ML VIAL IV PUSH PRN (00:05)
[2017-05-27] MEDS: HALOPERIDOL LACTATE 5 MG/ML AMP IV PUSH PRN (00:13)
[2017-05-27] MEDS: niMODipine 30 MG CAP PO SCH ×6 (02:00→21:44)
[2017-05-27] MEDS: CHLORHEXIDINE GLUCONATE 2 % 1 PACK (2 CLOTHS) TOP SCH (04:00)
[2017-05-27] MEDS: hydrALAZINE HCL 20 MG/ML VIAL IV PRN ×2 (04:44→20:31)
[2017-05-27 04:49] LABS: HEMATOCRIT 36.5 % (39.0-51.0); MEAN CELL VOLUME 91.3 FL (80.0-100.0); MEAN CORPUSCULAR HEMOGLOBIN 30.7 PG (27.0-34.0); MEAN CORPUSCULAR HGB CONC 33.7 % (32.0-36.0); PLATELET COUNT 176 TH/MM3 (150-450); RED BLOOD COUNT 3.99 MIL/MM3 (4.50-5.90); RED CELL DISTRIBUTION WIDTH 14.3 % (11.6-17.2); REVIEW FLAG FINAL; WHITE BLOOD COUNT 12.2 TH/MM3 (4.0-11.0)
[2017-05-27 05:08] LABS: BICARBONATE 28.3 MEQ/L (21.0-32.0); POTASSIUM 3.5 MEQ/L (3.5-5.1)
[2017-05-27] MEDS: chlorproMAZINE HCL 25 MG TAB PO SCH ×3 (05:38→21:43)
[2017-05-27] MEDS: METOCLOPRAMIDE HCL 10 MG/2 ML VIAL IV PUSH SCH (05:39)
[2017-05-27] MEDS: ARTIFICIAL TEARS OPTH SOLN 15 ML BTL EACH EYE SCH ×3 (05:39→21:45)
[2017-05-27] MEDS: INSULIN NovoLIN REGULAR SUPPLEMENTAL SCALE SQ SCH ×3 (06:00→17:45)
[2017-05-27] MEDS: FAMOTIDINE 20 MG TAB NG SCH ×2 (07:37→20:31)
[2017-05-27] MEDS: SODIUM CHLORIDE 0.9% FLUSH 10 ML FLUSH IV FLUSH SCH ×2 (07:37→21:00)
[2017-05-27] MEDS: LACTULOSE SYRUP 20 GM/30 ML CUP PO SCH ×2 (07:37→21:00)
[2017-05-27] MEDS: POLYETHYLENE GLYCOL 17 GM PKG NG SCH ×2 (07:37→21:00)
[2017-05-27] MEDS: DOCUSATE SODIUM 50 MG/SENNA 8.6 MG TAB PO SCH ×2 (07:38→21:00)
[2017-05-27] MEDS ORDERED: FUROSEMIDE 20 MG/2 ML VIAL IV PUSH ONE (08:15)
[2017-05-27] MEDS ORDERED: VANCOMYCIN INJ 1,250 MG in SODIUM CHLOR 0.9% 250 ML INJ 250 ML IV ONE (09:00)
[2017-05-27] MEDS ORDERED: Vancomycin Consult Pharmacy 1 EA OTHER SCH (09:00)
[2017-05-27] MEDS: CEFEPIME INJ 2,000 MG in SODIUM CHLORIDE 0.9% INJ 100 ML IV SCH ×2 (09:10→16:51)
--- NOTE | 2017-05-27 09:22 | RADRPT ---
EXAM DATE/TIME: 05/27/2017 08:52 [facility] COMPARISON: CHEST SINGLE AP, May 24, 2017, 9:34. INDICATIONS : Fever MEDICAL HISTORY : Headache. Subarachnoid hemorrhage SURGICAL HISTORY : Ventriculostomy drain placement. ENCOUNTER: Initial ACUITY: 2 weeks PAIN SCORE: Non-responsive. LOCATION: Bilateral chest FINDINGS: A single view of the chest demonstrates bibasilar consolidation. Nasogastric tube and endotracheal tu be have been removed. Right jugular line is stable. Heart normal in size. The cardiomediastinal cont ours are unremarkable. Osseous structures are intact. CONCLUSION: Persistent bibasilar consolidation. Dillon Spring MD on May 27, 2017 at 9:19 Board Certified Radiologist. This report was verified electronically.
--- NOTE | 2017-05-27 09:45 | HHI.NSPN ---
(Bekah King) Note Status Status: Progress Note (Bekah King) Status: Progress Note (Lonny Anderson MD) Interval History Interval History A 62-year-old gentleman who was brought to [facility] emergency room after presenting with A sudden onset of severe headache. Apparently, HE was hanging a large [place] tree and had to strain a lot and then subsequently noticed this headache which is bifrontal. He has also had some nausea and small bouts of vomiting, especially when he is moved from the stretcher to the CT scanner as well as the moment up to the intensive care unit. He denies any numbness or paresthesias in the upper or lower extremities or any double vision or blurred vision. CT scan of the head obtained reveals extensive subarachnoid hemorrhage involving the prepontine cistern, basal cisterns, suprasellar cistern, interhemispheric fissure and bilateral sylvian fissure. There is mild hydrocephalus with dilation of temporal horns noted also. Subsequent CT angiogram of the brain was obtained which does not reveal any underlying aneurysm. CTA of the neck is also negative. 05/20/17: Pt sedated on Diprivan. Pupils 2mm bilaterally, slight brisk reaction bilaterally. Ventriculostomy drain placed this morning by Dr. Jeronimo. ICPs 11. 05/21/17: Pt sedated on Diprivan and Fentanyl. Intubated. Pupils 2mm bilaterally reactive bilaterally. Ventriculostomy drain in place with blood tinged CSF at 10cm H2O. ICP 6-8. 05/22/17: Pt sedated on Diprivan and Fentanyl drips. Intubated. Ventriculostomy drain in place at [id number] with bloody CSF drainage. ICP 8-10 05/23/17: Pt sedated on Diprivan and Fentanyl drips weaning dose. Intubated. Ventriculostomy drain in place at [id number] with bloody CSF drainage. ICP 5-10 range with good waveform. 05/24/17: Pt sedated on Diprivan and Fentanyl drips. Held for few minutes and pt becomes very agitated. Moves all 4 extremities but not following commands secondary to agitation. 05/25/17: Pt sedated on low dose Fentanyl and Precedex drips for agitation during the weaning process. Pt opens eyes. Follows some simple commands. Intubated on CPAP currently. 05/26/17: ICPs overnight in the mid to high teens as high as 19. c/o mild headaches, moves all four extremities, mildly confused. nursing reports new leaking from ventriculostomy drain site. 05/27/17: no further leakage from ventriculostomy drain site. Febrile this am, CSF cultures sent and is pending. TCDs yesterday negative for vasospasm. (Bekah King) Labs, Micro, & Vital Signs Results Date Time Temp Pulse Resp B/P (MAP) Pulse Ox O2 Delivery O2 Flow Rate FiO2 05/27/17 08:29 96 Simple Mask 10.00 05/27/17 08:00 101.2 96 30 140/67 (91) 96 05/27/17 08:00 108 05/27/17 07:00 94 Simple Mask 6.00 05/27/17 06:00 107 05/27/17 04:00 98.1 95 33 155/71 (99) 91 05/27/17 04:00 95 05/27/17 02:00 74 05/27/17 00:00 99.7 108 40 167/77 (107) 89 05/27/17 00:00 108 05/26/17 22:00 90 05/26/17 20:45 100 Nasal Cannula 4.00 05/26/17 20:00 99.0 80 21 150/75 (100) 97 05/26/17 20:00 80 05/26/17 19:00 98 Nasal Cannula 4.00 05/26/17 18:00 81 05/26/17 17:39 99.1 05/26/17 16:00 64 05/26/17 16:00 100.9 64 22 156/67 (96) 98 05/26/17 14:00 78 05/26/17 12:00 100.8 90 17 133/63 (86) 98 05/26/17 12:00 90 05/26/17 10:00 67 Constitutional Vital Signs Date Time Temp Pulse Resp B/P (MAP) Pulse Ox O2 Delivery O2 Flow Rate FiO2 05/27/17 08:29 96 Simple Mask 10.00 05/27/17 08:00 101.2 96 30 140/67 (91) 96 05/27/17 08:00 108 05/27/17 07:00 94 Simple Mask 6.00 05/27/17 06:00 107 05/27/17 04:00 98.1 95 33 155/71 (99) 91 05/27/17 04:00 95 05/27/17 02:00 74 05/27/17 00:00 99.7 108 40 167/77 (107) 89 05/27/17 00:00 108 05/26/17 22:00 90 05/26/17 20:45 100 Nasal Cannula 4.00 05/26/17 20:00 99.0 80 21 150/75 (100) 97 05/26/17 20:00 80 05/26/17 19:00 98 Nasal Cannula 4.00 05/26/17 18:00 81 05/26/17 17:39 99.1 05/26/17 16:00 64 05/26/17 16:00 100.9 64 22 156/67 (96) 98 05/26/17 14:00 78 05/26/17 12:00 100.8 90 17 133/63 (86) 98 05/26/17 12:00 90 05/26/17 10:00 67 (Bekah King) Review of Systems Constitutional: COMPLAINS OF: Fatigue, Fever Neurologic: DENIES: Localized weakness Psychiatric: COMPLAINS OF: Confusion (Bekah King) Physical Exam Awake, oriented to name, place only, not to time. Follows simple commands. CN: pupils equal, gross EOMs intact, facial motor symmetric Ventriculostomy drain in place at 20 cm H20, ICPs = 15, CSF blood tinged, there is CSF leaking noted from ventriculostomy drain site Motor: moves all four extremities grossly symmetric with good probate judge bilaterally Sensory: reports intact to light touch x 4 (Bekah King) mr Post is awake, oriented to name, place only, not to time. Follows simple commands. Ventriculostomy drain in place at 20 cm H20, ICPs = 15, CSF blood tinged, there is CSF leaking noted from ventriculostomy drain site Cranial nerve examination: pupils to be equal, round and reactive to light. Extra-ocular movements are intact. Facial motor and sensory function are normal and symmetrical. Gross hearing appears intact. Sternocleidomastoid and trapezius muscles are symmetrical. Other cranial nerves are intact. Neck is soft and supple with a good range of motion without pain. Muscle strength is normal in all muscle groups of both upper and lower extremities. Sensory examination is intact to light touch and pin prick in both the upper and lower extremities. Deep tendon reflexes are symmetrical in both upper and lower extremities. There is a bilateral plantar flexion response. Cerebellar examination is unremarkable, without deficits. (Lonny Anderson MD) Medications Current Medications Current Medications Medications (Trade) Dose Ordered Sig/Bam Route PRN Reason Start Time Stop Time Status Last Admin Dose Admin Sodium Chloride (NS Flush) 2 ml BID IV FLUSH 05/19/17 21:00 05/27/17 07:37 Miscellaneous Information 1 Q361D XX 05/19/17 17:30 Chlorhexidine Gluconate (Chlorhexidine 2% Cloth) Taper DAILY@04 TOP 05/20/17 04:00 05/16/18 03:59 Chlorhexidine Gluconate (Chlorhexidine 2% Cloth) 3 pack UNSCH PRN TOP HYGIENIC CARE 05/19/17 17:30 Senna/Docusate Sodium (Debo-Colace) 1 tab BID PO 05/19/17 21:00 05/23/17 20:28 Nicardipine HCl 25 mg/Sodium Chloride 250 ml @ 50 mls/hr TITRATE PRN IV Blood pressure management 05/19/17 17:30 Potassium Chloride 100 ml @ 50 mls/hr Q2H PRN IV For Potassium 2.8 - 3.2 mEq/L 05/19/17 17:45 Potassium Chloride 100 ml @ 50 mls/hr Q2H PRN IV For Potassium 2.8 - 3.2 mEq/L 05/19/17 17:45 Potassium Bicarb/ Potassium Chloride (K-Lyte Cl Eff) 50 meq UNSCH PRN PO For Potassium 3.3 - 3.5 mEq/L 05/19/17 17:45 Potassium Chloride 100 ml @ 25 mls/hr UNSCH PRN IV For Potassium 3.3 - 3.5 mEq/L 05/19/17 17:45 Potassium Chloride 100 ml @ 50 mls/hr Q2H PRN IV For Potassium 3.3 - 3.5 mEq/L 05/19/17 17:45 Magnesium Sulfate 4 gm/Sodium Chloride 100 ml @ 50 mls/hr UNSCH PRN IV For Magnesium 0.9 - 1.1 mg/dL 05/19/17 17:45 Magnesium Oxide (Mag-Ox) 800 mg UNSCH PRN PO For Magnesium 1.2 - 1.6 mg/dL 05/19/17 17:45 Magnesium Sulfate 2 gm/Sodium Chloride 100 ml @ 50 mls/hr UNSCH PRN IV For Magnesium 1.2 - 1.6 mg/dL 05/19/17 17:45 Potassium Phosphate (K-Phos) 2,000 mg Q4H PRN PO For Phosphorus < 2.5 mg/dL 05/19/17 17:45 Sodium Phosphate 30 mmol/Sodium Chloride 250 ml @ 42 mls/hr UNSCH PRN IV For Phosphorus < 2.5 mg/dL 05/19/17 17:45 Potassium Phosphate (K-Phos) 2,000 mg UNSCH PRN PO/TUBE SEE LABEL COMMENTS 05/19/17 17:45 Potassium Phosphate 30 mmol/ Sodium Chloride 260 ml @ 42 mls/hr UNSCH PRN IV SEE LABEL COMMENTS 05/19/17 17:45 Morphine Sulfate (Morphine Inj) 2 mg Q1H PRN IV PUSH pain>6 05/19/17 18:30 05/25/17 19:58 Acetaminophen/ Hydrocodone Bitart ([place] 10-325 Mg) 1 tab Q4H PRN PO pain 1-6 05/19/17 18:30 05/19/17 19:53 Lorazepam (Ativan Inj) 1 mg Q1H PRN IV PUSH SEIZURES 05/19/17 18:30 Al Hydrox/Mg Hydrox/Simethicone (Mag-Al Plus Susp Liq) 30 ml Q6H PRN PO DYSPEPSIA 05/19/17 18:30 Promethazine HCl (Phenergan Inj) 25 mg Q4H PRN IM NAUSEA OR VOMITING 05/19/17 18:30 Labetalol HCl (Trandate Inj) 10 mg Q1H PRN IV PUSH SYS BP GREATER THAN 150 MMHG 05/19/17 18:30 05/27/17 00:05 Norepinephrine Bitartrate 4 mg/ Sodium Chloride 250 ml @ 7.5 mls/hr TITRATE PRN IV Maintain MAP > 65 mmHg 05/21/17 02:00 05/23/17 23:33 Albuterol Sulfate (Albuterol Neb) 2.5 mg Q2HR NEB PRN NEB WHEEZING 05/21/17 06:45 05/26/17 07:48 Dextrose (D50w (Vial) Inj) 50 ml UNSCH PRN IV PUSH HYPOGLYCEMIA-SEE COMMENTS 05/21/17 06:45 Glucagon (Glucagon Inj) 1 mg UNSCH PRN OTHER HYPOGLYCEMIA-SEE COMMENTS 05/21/17 06:45 Insulin Human Regular (NovoLIN R SUPPLEMENTAL SCALE) 1 Q6HR SQ 05/21/17 12:00 05/23/17 18:13 Acetaminophen (Tylenol 650 Mg/ 20 ml Liq) 650 mg Q6H PRN NG fever 05/21/17 07:15 05/24/17 20:06 Artificial Tears (Tears Naturale Opth Soln) 1 drop Q8HR EACH EYE 05/21/17 14:00 05/27/17 05:39 Nimodipine (Nimotop) 60 mg Q4H PO 05/21/17 18:00 05/27/17 09:10 Lactulose (Lactulose Liq) 30 ml BID PO 05/22/17 21:00 05/23/17 20:27 Polyethylene Glycol (Miralax) 17 gm BID NG 05/22/17 21:00 05/24/17 20:07 Glycerin (Glycerin Adult Supp) 2 gm BID PRN RECTAL CONSTIPATION 05/22/17 10:00 Famotidine (Pepcid) 20 mg BID NG 05/22/17 21:00 05/27/17 07:37 Metoclopramide HCl (Reglan Inj) 5 mg Q8HR IV PUSH 05/22/17 14:00 05/27/17 13:59 05/27/17 05:39 Ondansetron HCl (Zofran Inj) 4 mg Q4H PRN IV PUSH singultus or nausea 05/22/17 12:45 05/25/17 19:57 Haloperidol Lactate (Haldol Inj) 2 mg Q6H PRN IV PUSH breakthrough singultus 05/22/17 12:45 05/27/17 00:13 Chlorpromazine (Thorazine) 25 mg Q8HR PO 05/23/17 14:00 05/27/17 05:38 Hydralazine HCl (Apresoline Inj) 10 mg Q30M PRN IV SYS BP GREATER THAN 160 MMHG 05/25/17 16:15 05/27/17 04:44 Acetaminophen 100 ml @ 400 mls/hr Q6H PRN IV TEMPERATURE 101.5 F OR GREATER 05/25/17 16:15 05/26/17 14:32 Pharmacy Profile Note 0 ml @ 0 mls/hr UNSCH OTHER 05/27/17 09:00 Cefepime HCl 2000 mg/Sodium Chloride 100 ml @ 200 mls/hr Q8H IV 05/27/17 09:00 05/27/17 09:10 Vancomycin HCl 1750 mg/Sodium Chloride 517.5 ml @ 250 mls/hr Q12H IV 05/27/17 11:00 Miscellaneous Information SPECIFIC LAB TO BE VIVIANA... ONCE ONCE .XX 05/28/17 22:45 05/28/17 22:46 (Bekah King) Current Medications Current Medications Sodium Chloride (NS Flush) 2 ml UNSCH PRN IVF FLUSH AFTER USING IV ACCESS; Start 05/19/17 at 15:45; Status Cancel Prochlorperazine Edisylate (Compazine Inj) 10 mg ONCE ONCE IVP Last administered on 05/19/17 16:00; Start 05/19/17 at 15:45; Stop 05/19/17 at 15 :46; Status DC Hydromorphone HCl (Dilaudid Pf Inj) 1 mg ONCE ONCE IVS Last administered on 16:01; Start 05/19/17 at 15:45; Stop 05/19/17 at 15:46; Status DC Iohexol (Omnipaque 350 Inj) 85 ml STK-MED ONCE IVCONTRAST Last administered on 05/19/17 17:14; Start 05/19/17 at 17:14; Stop 05/19/17 at 17:15; Status DC Potassium Chloride/Sodium Chloride 1,000 ml @ 100 mls/hr Q10H IV Last administered on 05/23/17 08:34; Start 05/19/17 at 17:24; Stop 05/23/17 at 09 :55; Status DC Sodium Chloride (NS Flush) 2 ml UNSCH PRN IV FLUSH FLUSH AFTER USING IV ACCESS ; Start 05/19/17 at 17:30; Status Cancel Sodium Chloride (NS Flush) 2 ml BID IV FLUSH Last administered on 05/27/17 07: 37; Start 05/19/17 at 21:00 Famotidine (Pepcid Inj) 20 mg Q12HR IV PUSH Last administered on 05/22/17 08: 14; Start 05/19/17 at 21:00; Stop 05/22/17 at 09:03; Status DC Albuterol/ Ipratropium (Duoneb Neb) 1 ampule Q4HR NEB PRN INH WHEEZING; Start 05/19/17 at 17:30; Stop 05/21/17 at 06:35; Status DC Miscellaneous Information 1 Q361D XX ; Start 05/19/17 at 17:30 Chlorhexidine Gluconate (Chlorhexidine 2% Cloth) Taper DAILY@04 TOP ; Start at 04:00; Stop 05/16/18 at 03:59 Chlorhexidine Gluconate (Chlorhexidine 2% Cloth) 3 pack UNSCH PRN TOP HYGIENIC CARE; Start 05/19/17 at 17:30 Senna/Docusate Sodium (Debo-Colace) 1 tab BID PO Last administered on 20:28; Start 05/19/17 at 21:00 Magnesium Hydroxide (Milk Of Magnesia Liq) 30 ml Q12H PRN PO Mild constipation ; Start 05/19/17 at 17:30; Stop 05/22/17 at 09:15; Status DC Sennosides (Senokot) 17.2 mg Q12H PRN PO Moderate constipation; Start at 17:30; Stop 05/22/17 at 09:15; Status DC Bisacodyl (Dulcolax Supp) 10 mg DAILY PRN RECTAL SEVERE CONSITIPATION; Start 05/19/17 at 17:30; Stop 05/22/17 at 09:15; Status DC Lactulose (Lactulose Liq) 30 ml DAILY PRN PO SEVERE CONSITIPATION; Start 05/19 at 17:30; Stop 05/22/17 at 09:15; Status DC Nicardipine HCl 25 mg/Sodium Chloride 250 ml @ 50 mls/hr TITRATE PRN IV Blood pressure management; Start 05/19/17 at 17:30 Potassium Chloride 100 ml @ 50 mls/hr Q2H PRN IV For Potassium 2.8 - 3.2 mEq/L ; Start 05/19/17 at 17:45 Potassium Chloride 100 ml @ 50 mls/hr Q2H PRN IV For Potassium 2.8 - 3.2 mEq/L ; Start 05/19/17 at 17:45 Potassium Bicarb/ Potassium Chloride (K-Lyte Cl Eff) 50 meq UNSCH PRN PO For Potassium 3.3 - 3.5 mEq/L; Start 05/19/17 at 17:45 Potassium Chloride 100 ml @ 25 mls/hr UNSCH PRN IV For Potassium 3.3 - 3.5 mEq /L Last administered on 05/27/17 17:15; Start 05/19/17 at 17:45 Potassium Chloride 100 ml @ 50 mls/hr Q2H PRN IV For Potassium 3.3 - 3.5 mEq/L ; Start 05/19/17 at 17:45 Magnesium Sulfate 4 gm/Sodium Chloride 100 ml @ 50 mls/hr UNSCH PRN IV For Magnesium 0.9 - 1.1 mg/dL; Start 05/19/17 at 17:45 Magnesium Oxide (Mag-Ox) 800 mg UNSCH PRN PO For Magnesium 1.2 - 1.6 mg/dL; Start 05/19/17 at 17:45 Magnesium Sulfate 2 gm/Sodium Chloride 100 ml @ 50 mls/hr UNSCH PRN IV For Magnesium 1.2 - 1.6 mg/dL; Start 05/19/17 at 17:45 Potassium Phosphate (K-Phos) 2,000 mg Q4H PRN PO For Phosphorus < 2.5 mg/dL; Start 05/19/17 at 17:45 Sodium Phosphate 30 mmol/Sodium Chloride 250 ml @ 42 mls/hr UNSCH PRN IV For Phosphorus < 2.5 mg/dL; Start 05/19/17 at 17:45 Potassium Phosphate (K-Phos) 2,000 mg UNSCH PRN PO/TUBE SEE LABEL COMMENTS; Start 05/19/17 at 17:45 Potassium Phosphate 30 mmol/ Sodium Chloride 260 ml @ 42 mls/hr UNSCH PRN IV SEE LABEL COMMENTS; Start 05/19/17 at 17:45 Morphine Sulfate (Morphine Inj) 2 mg Q1H PRN IV PUSH pain>6 Last administered on 05/25/17t 19:58; Start 05/19/17 at 18:30 Acetaminophen/ Hydrocodone Bitart ([place] 10-325 Mg) 1 tab Q4H PRN PO pain 1-6 Last administered on 05/19/17 19:53; Start 05/19/17 at 18:30 Levetriacetam 500 mg/Sodium Chloride 105 ml @ 400 mls/hr Q12H IV Last administered on 05/25/17 17:41; Start 05/19/17 at 19:00; Stop 05/25/17 at 17: 58; Status DC Lorazepam (Ativan Inj) 1 mg Q1H PRN IV PUSH SEIZURES; Start 05/19/17 at 18:30 Docusate Sodium (Colace) 100 mg BID PO Last administered on 05/20/17 20:09; Start 05/19/17 at 21:00; Stop 05/21/17 at 06:35; Status DC Magnesium Hydroxide (Milk Of Magnesia Liq) 30 ml DAILY PRN PO CONSTIPATION; Start 05/19/17 at 18:30; Stop 05/20/17 at 16:22; Status DC Al Hydrox/Mg Hydrox/Simethicone (Mag-Al Plus Susp Liq) 30 ml Q6H PRN PO DYSPEPSIA; Start 05/19/17 at 18:30 Pantoprazole Sodium (Protonix Inj) 40 mg DAILY IVP ; Start 05/20/17 at 09:00; Stop 05/20/17 at 09:00; Status DC Ondansetron HCl (Zofran Inj) 4 mg Q6H PRN IV PUSH NAUSEA OR VOMITING Last administered on 05/19/17 18:52; Start 05/19/17 at 18:30; Stop 05/22/17 at 12 :39; Status DC Promethazine HCl (Phenergan Inj) 25 mg Q4H PRN IM NAUSEA OR VOMITING; Start at 18:30 Labetalol HCl (Trandate Inj) 10 mg Q1H PRN IV PUSH SYS BP GREATER THAN 150 MMHG Last administered on 05/27/17 00:05; Start 05/19/17 at 18:30 Acetaminophen (Tylenol) 650 mg Q4H PRN PO TEMPERATURE > 101.5 F; Start at 18:30; Stop 05/21/17 at 07:07; Status DC Albuterol Sulfate (Albuterol Neb) 2.5 mg Q4HR NEB PRN NEB WHEEZING; Start at 18:30; Stop 05/21/17 at 06:35; Status DC Nimodipine (Nimotop) 60 mg Q4HR PO Last administered on 05/21/17 14:16; Start 05/19/17 at 20:00; Stop 05/21/17 at 14:27; Status DC Fentanyl Citrate (fentaNYL INJ) 100 mcg STK-MED ONCE .ROUTE ; Start 05/20/17 at 02:33; Stop 05/20/17 at 02:34; Status DC Midazolam HCl (Versed Inj) 5 mg STK-MED ONCE .ROUTE ; Start 05/20/17 at 02:34; Stop 05/20/17 at 02:35; Status DC Midazolam HCl (Versed Inj) 2 mg UNSCH X1 IV Last administered on 05/20/17 06 :30; Start 05/20/17 at 02:20; Stop 05/20/17 at 03:30; Status DC Fentanyl Citrate (fentaNYL INJ) 100 mcg UNSCH X1 IV Last administered on 05/20 06:30; Start 05/20/17 at 02:20; Stop 05/20/17 at 03:30; Status DC Pravastatin Sodium (Pravachol) 40 mg HS PO Last administered on 05/21/17 20: 34; Start 05/20/17 at 21:00; Stop 05/22/17 at 09:14; Status DC Propofol 50 ml @ As Directed STK-MED ONCE .ROUTE Last administered on 06:40; Start 05/20/17 at 06:14; Stop 05/20/17 at 06:15; Status DC Succinylcholine Chloride (Quelicin Inj) 50 mg NOW IV PUSH Last administered on 05/20/17 06:30; Start 05/20/17 at 06:00; Stop 05/20/17 at 07:00; Status DC Rocuronium [place] (Zemuron Inj) 50 mg NOW IV ; Start 05/20/17 at 06:00; Stop 05/20/17 at 07:00; Status DC Midazolam HCl (Versed Inj) 3 mg NOW IV Last administered on 05/20/17 06:40; Start 05/20/17 at 06:00; Stop 05/20/17 at 07:00; Status DC Rocuronium [place] (Zemuron Inj) 50 mg ONCE IV Last administered on 05/20/17 08:15; Start 05/20/17 at 07:45; Stop 05/20/17 at 12:00; Status DC Propofol 100 ml @ 2.52 mls/hr TITRATE PRN IV SEDATION Last administered on 13:54; Start 05/20/17 at 08:00; Stop 05/25/17 at 17:58; Status DC Sodium Chloride 1,000 ml @ 999 mls/hr Q1H1M ONCE IV Last administered on 05/20 09:45; Start 05/20/17 at 10:15; Stop 05/20/17 at 11:15; Status DC Norepinephrine Bitartrate (Levophed Inj) 4 mg STK-MED ONCE .ROUTE ; Start 05/20 at 10:35; Stop 05/20/17 at 10:36; Status DC Norepinephrine Bitartrate 250 ml @ 7.5 mls/hr TITRATE PRN IV Maintain MAP > 65 mmHg Last administered on 05/20/17 23:17; Start 05/20/17 at 11:00; Stop 05/21/17 at 01:58; Status DC Fentanyl Citrate (fentaNYL INJ) 100 mcg ONCE ONCE IV PUSH Last administered on 05/20/17 13:57; Start 05/20/17 at 13:15; Stop 05/20/17 at 13:45; Status DC Fentanyl Citrate 250 ml @ 5 mls/hr TITRATE PRN IV SEDATION Last administered on 05/24/17 22:36; Start 05/20/17 at 13:15; Stop 05/25/17 at 17:58; Status DC Norepinephrine Bitartrate 4 mg/ Sodium Chloride 250 ml @ 7.5 mls/hr TITRATE PRN IV Maintain MAP > 65 mmHg Last administered on 05/23/17 23:33; Start at 02:00 Albuterol Sulfate (Albuterol Neb) 2.5 mg Q2HR NEB PRN NEB WHEEZING Last administered on 05/26/17 07:48; Start 05/21/17 at 06:45 Albuterol/ Ipratropium (Duoneb Neb) 1 ampule Q4HR NEB INH Last administered on 05/23/17 08:43; Start 05/21/17 at 06:45; Stop 05/23/17 at 10:19; Status DC Dextrose (D50w (Vial) Inj) 50 ml UNSCH PRN IV PUSH HYPOGLYCEMIA-SEE COMMENTS; Start 05/21/17 at 06:45 Glucagon (Glucagon Inj) 1 mg UNSCH PRN OTHER HYPOGLYCEMIA-SEE COMMENTS; Start 05/21/17 at 06:45 Insulin Human Regular (NovoLIN R SUPPLEMENTAL SCALE) 1 Q6HR SQ Last administered on 05/23/17 18:13; Start 05/21/17 at 12:00 Acetaminophen (Tylenol 650 Mg/ 20 ml Liq) 650 mg Q6H PRN NG fever Last administered on 05/24/17 20:06; Start 05/21/17 at 07:15 Potassium Chloride (KCl Powder) 20 meq ONCE ONCE NG Last administered on 05/21 14:17; Start 05/21/17 at 07:15; Stop 05/21/17 at 07:16; Status DC Polyethylene Glycol (Miralax) 17 gm DAILY PO Last administered on 05/21/17 14 :17; Start 05/21/17 at 09:00; Stop 05/22/17 at 09:02; Status DC Lactulose (Lactulose Liq) 30 ml DAILY PO Last administered on 05/21/17 14:16 ; Start 05/21/17 at 09:00; Stop 05/22/17 at 09:02; Status DC Artificial Tears (Tears Naturale Opth Soln) 1 drop Q8HR EACH EYE Last administered on 05/27/17 14:17; Start 05/21/17 at 14:00 Levetriacetam 100 ml @ 400 mls/hr BOLUS ONCE IV Last administered on 10:12; Start 05/21/17 at 10:00; Stop 05/21/17 at 10:14; Status DC Iodixanol (VISIPAQUE 320 INJ (Rad Spec)) 120 ml STK-MED ONCE I-ARTERIAL ; Start 05/21/17 at 13:35; Stop 05/21/17 at 13:36; Status DC Nimodipine (Nimotop) 60 mg Q4H PO Last administered on 05/27/17 16:51; Start 05/21/17 at 18:00 Sodium Chloride 500 ml @ 500 mls/hr BOLUS ONCE IV Last administered on 17:56; Start 05/21/17 at 17:00; Stop 05/21/17 at 17:59; Status DC Calcium Gluconate 1 gm/Sodium Chloride 110 ml @ 110 mls/hr ONCE ONCE IV Last administered on 05/22/17 11:59; Start 05/22/17 at 11:00; Stop 05/22/17 at 11 :59; Status DC Magnesium Sulfate/ Dextrose 100 ml @ 100 mls/hr Q1H IV Last administered on 10:46; Start 05/22/17 at 09:00; Stop 05/22/17 at 10:59; Status DC Lactulose (Lactulose Liq) 30 ml BID PO Last administered on 05/23/17 20:27; Start 05/22/17 at 21:00 Polyethylene Glycol (Miralax) 17 gm BID NG Last administered on 05/24/17 20: 07; Start 05/22/17 at 21:00 Glycerin (Glycerin Adult Supp) 2 gm ONCE ONCE RECTAL Last administered on 09:39; Start 05/22/17 at 10:00; Stop 05/22/17 at 10:01; Status DC Glycerin (Glycerin Adult Supp) 2 gm BID PRN RECTAL CONSTIPATION; Start at 10:00 Famotidine (Pepcid) 20 mg BID NG Last administered on 05/27/17 07:37; Start 05/22/17 at 21:00 Metoclopramide HCl (Reglan Inj) 5 mg Q8HR IV PUSH Last administered on 05:39; Start 05/22/17 at 14:00; Stop 05/27/17 at 13:59; Status DC Ondansetron HCl (Zofran Inj) 4 mg Q4H PRN IV PUSH singultus or nausea Last administered on 05/25/17 19:57; Start 05/22/17 at 12:45 Haloperidol Lactate (Haldol Inj) 2 mg Q6H PRN IV PUSH breakthrough singultus Last administered on 05/27/17 00:13; Start 05/22/17 at 12:45 Mineral Oil (Kondremul Liq) 30 ml ONCE ONCE PO Last administered on 11:14; Start 05/23/17 at 10:00; Stop 05/23/17 at 10:38; Status DC Magnesium Sulfate/ Dextrose 100 ml @ 100 mls/hr Q1H IV Last administered on 12:08; Start 05/23/17 at 10:00; Stop 05/23/17 at 11:59; Status DC Chlorpromazine (Thorazine) 25 mg Q8HR PO Last administered on 05/27/17 14:18; Start 05/23/17 at 14:00 Bumetanide (Bumex Inj) 1 mg ONCE ONCE IV PUSH Last administered on 05/23/17 17:25; Start 05/23/17 at 17:00; Stop 05/23/17 at 17:01; Status DC Iohexol (Omnipaque 350 Inj) 70 ml STK-MED ONCE IVCONTRAST Last administered on 05/24/17 10:48; Start 05/24/17 at 10:48; Stop 05/24/17 at 10:49; Status DC Dexmedetomidine HCl 200 mcg/ Sodium Chloride 52 ml @ 4.73 mls/hr TITRATE PRN IV SEDATION Last administered on 05/24/17 18:15; Start 05/24/17 at 14:15; Stop 05/24/17 at 19:09; Status DC Dexmedetomidine HCl 1000 mcg/ Sodium Chloride 250 ml @ 4.55 mls/hr TITRATE PRN IV SEDATION Last administered on 05/25/17 08:00; Start 05/24/17 at 19:15; Stop 05/25/17 at 17:58; Status DC Hydralazine HCl (Apresoline Inj) 10 mg Q30M PRN IV SYS BP GREATER THAN 160 MMHG Last administered on 05/27/17 04:44; Start 05/25/17 at 16:15 Acetaminophen 100 ml @ 400 mls/hr Q6H PRN IV TEMPERATURE 101.5 F OR GREATER Last administered on 05/26/17 14:32; Start 05/25/17 at 16:15 Furosemide (Lasix Inj) 20 mg ONCE ONCE IV PUSH Last administered on 05/25/17 18:22; Start 05/25/17 at 18:00; Stop 05/25/17 at 18:01; Status DC Furosemide (Lasix Inj) 20 mg STAT ONCE IV PUSH Last administered on 05/27/17 08:22; Start 05/27/17 at 08:15; Stop 05/27/17 at 08:16; Status DC Pharmacy Profile Note 0 ml @ 0 mls/hr UNSCH OTHER ; Start 05/27/17 at 09:00 Vancomycin HCl 1250 mg/Sodium Chloride 262.5 ml @ 250 mls/hr ONCE ONCE IV ; Start 05/27/17 at 09:00; Stop 05/27/17 at 10:02; Status UNV Cefepime HCl 2000 mg/Sodium Chloride 100 ml @ 200 mls/hr Q8H IV Last administered on 05/27/17 16:51; Start 05/27/17 at 09:00 Vancomycin HCl 1750 mg/Sodium Chloride 517.5 ml @ 250 mls/hr Q12H IV Last administered on 05/27/17 10:54; Start 05/27/17 at 11:00 Miscellaneous Information SPECIFIC LAB TO BE ... ONCE ONCE .XX ; Start 05/28 at 22:45; Stop 05/28/17 at 22:46 Magnesium Sulfate/ Dextrose 200 ml @ As Directed STK-MED ONCE .ROUTE Last administered on 05/27/17 16:11; Start 05/27/17 at 14:42; Stop 05/27/17 at 14:43 ; Status DC Metoprolol Tartrate (Lopressor Inj) 5 mg STK-MED ONCE .ROUTE Last administered on 05/27/17 14:42; Start 05/27/17 at 14:42; Stop 05/27/17 at 14:43; Status DC Magnesium Sulfate/ Dextrose 100 ml @ As Directed STK-MED ONCE .ROUTE ; Start 05/27/17 at 14:47; Stop 05/27/17 at 14:48; Status DC Magnesium Sulfate 2 gm/Sodium Chloride 104 ml @ 52 mls/hr NOW ONCE IV ; Start 05/27/17 at 15:00; Stop 05/27/17 at 16:59; Status DC (Lonny Anderson MD) Medical Decision Making MDM Remarks 62 y/o male 1. Diffuse subarachnoid hemorrhage without any underlying aneurysm on CT angiogram of the brain. serial Follow up CTAs negative for aneurysm or cause, no evidence of vasospasms 2. Mild early hydrocephalus. s/p ventriculostomy placement on 05/20, challenging ventriculostomy, ICPs mildly elevated as high as 19 overnight (Bekah King) MDM Remarks Last 48 hours Impressions Transcranial Doppler Study Complete 05/27/17 1000 Signed Impressions: Service Date/Time: Saturday, May 27, 2017 11:54 - CONCLUSION: No evidence of vasospasm Kyree Mohan MD Chest X-Ray 05/27/17 0000 Signed Impressions: Service Date/Time: Saturday, May 27, 2017 08:52 - CONCLUSION: Persistent bibasilar consolidation. Dillon Spring MD Transcranial Doppler Study Complete 05/26/17 0600 Signed Impressions: Service Date/Time: Friday, May 26, 2017 08:35 - CONCLUSION: No definite evidence of vasospasm. Dillon Spring MD (Lonny Anderson MD) Plan Plan Remarks continue with close neuro checks in ISC cont ventriculostomy draining at 5 cm H20 with ICP monitoring cont Nimotop for vasospasm prophylaxis, f/u serial TCDs f/u cultures dw Dr. Wang and family in room (Bekah King) Attending Statement As above Continue neuro checks. CS yesterday stable, will obtain new TCD today Pulmonary.. Continue aggressive pulmonary toilette, nasotracheal suction, and breathing treatments with nebulizers. Nutrition. NPO Renal. monitor closely urine output, BUN and creatinine Endocrine. Monitor serial Acu checks and SSI as needed in detail ID monitor for signs of infection Protonix for stress ulcer prophylaxis Fernando hose and SCD's for DVT prophylaxis The exam, history, and the medical decision-making described in the above note were completed with the assistance of the mid-level provider. I reviewed and agree with the findings presented. I attest that I had a [id number] encounter with the patient on the same day, and personally performed and documented my assessment and findings in the medical record. (Lonny Anderson MD) Bekah King May 27, 2017 09:45 Lonny Anderson MD May 27, 2017 19:53
--- NOTE | 2017-05-27 09:47 | HHI.CCPN ---
Subjective Remarks/Hospital Course 05/19: 62-year-old male with no significant past medical history, presents here with sudden onset headache. Patient states he was pushing up a heavy [place] tree when he had a sudden onset of bifrontal and top of his head pain. He has never experienced similar pain before. He did not pass out. He did not fell off the ladder. He reports the pain as sharp and severe. He denies any weakness of his extremities. He denies any neck pain. The patient is currently taking no medications. He has no family history of headaches or subarachnoid bleed. The CT of the head revealed extensive subarachnoid bleed supratentorial and infratentorial. Head and neck CTA both negative for aneurysm. 05/20: Patient reintubated for worsening neurologic status this morning and placed on mechanical ventilation. Neurosurgery placed a ventriculostomy. When I evaluated the patient he was sedated with propofol, orally intubated on mechanical ventilation. He had just been started on Levophed to maintain CPP. 05/21: Afebrile. Patient remains bradycardic. Currently sedated with propofol along with fentanyl drips. Tolerating tube feeding. No bowel movement. Currently not following commands but on sedation. Plan for formal cerebral arteriogram today 05/22: Afebrile. Noted negative results from's formal cerebral arteriogram yesterday. EEG revealed moderate encephalopathy however no signs of acute epileptiform activity. Tube feeds currently off with residuals around 200 cc. No bowel movement since admission. 05/23: Episode of singultus overnight after respiratory therapy. Did resolved with vagal maneuver yesterday. No bowel movement. Tube feeds currently at 40 cc an hour. 05/24: Currently on dexmedetomidine for PSV trial. Per minute singultus. Transcanal Doppler/CTA brain revealed no acute vasospasm today 05/24. Tolerating tube feeds. Positive BM. 05/25: extubated this AM after passing SBT. however, this afternoon now on NRB. still following commands. TCDs from today pending. no other changes. denies complaints. ROS negative. 05/26: doing well, on NC o2. diuresed well yesterday. TCDs negative for vasospasm. clinical exam stable. ROS negative. had some headache with challenging of EVD yesterday, EVD lowered to 5 today. Subjective 05/27: in more respiratory distress this morning. subjectively feels worse, although he cannot completely describe any specific symptoms. says "he feels like he cannot move", but strength is equal and at baseline. wbc elevated and new fever today. flores cultures sent, vanc/cefepime started. cxr and u/a ordered. TCDs continue to be negative. Objective Vital Signs Date Time Temp Pulse Resp B/P (MAP) Pulse Ox O2 Delivery O2 Flow Rate FiO2 05/27/17 08:29 96 Simple Mask 10.00 05/27/17 08:00 101.2 96 30 140/67 (91) 05/25/17 20:48 50 Intake and Output 05/27/17 05/27/17 05/28/17 08:00 16:00 00:00 Intake Total 350 ml Output Total 1281 ml Balance -931 ml Result Diagram: 05/27/1741805/27/17418 Imaging Last Impressions Transcranial Doppler Study Complete 05/24/17 06 Signed Impressions: Service Date/Time: April 08:45 - CONCLUSION: No vasospasm. Sj Post Jr., MD Head CTA 05/24/17 0000 Signed Impressions: Service Date/Time: April 10:33 - CONCLUSION: No aneurysm or vasospasm. Sj Post Jr., MD Chest X-Ray 05/24/17 0000 Signed Impressions: Service Date/Time: April 09:34 - CONCLUSION: 1. Endotracheal tube tip now lies approximately 6.6 cm above the claudette. 2. Improved aeration with consolidation again noted in both lungs right greater than left. Eduardo Portre MD Abdomen X-Ray 05/23/17 0000 Signed Impressions: Service Date/Time: Tuesday, May 23, 2017 10:50 - CONCLUSION: No dilated loops of bowel. No significant stool burden. Sj Post Jr., MD Cerebral Arteriogram 05/21/17 0600 Signed Impressions: Service Date/Time: Sunday, May 21, 2017 09:48 - CONCLUSION: 1. Four-vessel selective angiography was performed with cross compression views. No discrete aneurysm was identified. Due to the extensive amount of hemorrhage on the patient's CT scan I would recommend this patient undergo either followup CT angiography or followup conventional angiography for further assessment. Hipolito Mccollum MD Head CT 05/20/17 0600 Signed Impressions: Service Date/Time: Saturday, May 20, 2017 04:06 - CONCLUSION: 1. Slight interval increase in intraventricular hemorrhage compared to the prior study. The occipital horns are slightly more prominent as well. 2. The subarachnoid hemorrhage is not significantly changed. Eduardo Porter MD Neck CTA 05/19/17 0000 Signed Impressions: Service Date/Time: Friday, May 19, 2017 16:49 - CONCLUSION: Negative CTA. No focal areas of stenosis seen. Sj Carver MD Objective Remarks GENERAL: 62-year-old male, sitting in bed. SKIN: Warm and dry. No rash HEAD: right ventriculostomy currently at +10 cm H2O EYES: Pupils equal and round around 2-3 mm and slightly reactive. No scleral icterus. No injection or drainage. ENT: No nasal bleeding or discharge. Mucous membranes pink and moist. nc o2. NECK: Trachea midline. No JVD. CARDIOVASCULAR: normal rate, regular rhythm. RESPIRATORY: face mask o2. using accessory muscles. tachypneic. GASTROINTESTINAL: Abdomen soft, non-tender, nondistended. MUSCULOSKELETAL: Extremities without significant peripheral edema. No obvious deformities. NEUROLOGICAL: Cranial nerves II through XII appear grossly intact. FC x 4. no neuro deficits. JHON 5/5 in all extremities. Date of Insertion: May 20, 2017 Line: Central Venous Catheter Side: Right Location: Subclavian A/P Assessment and Plan Assessment: 62yM s/p non-traumatic SAH. worse today. new fever and leukocytosis is concerning. f/u cultures and empiric abx therapy. will diurese again today given respiratory distress. continue TCDs. remain in ICU, clinically worse and tenuous. NEURO/PSYCH: Subarachnoid hemorrhage Singultus CT brain 05/19 revealed open infratentorial subarachnoid hemorrhage Subarachnoid blood in the sylvian fissures, anterior hemispheric fissure, brainstem and pre-pontine region CT angiogram head and neck revealed no acute aneurysm Repeat CT brain 05/20 revealed no further hemorrhage but now has developed moderate hydrocephalus with some intraventricular hemorrhage in the occipital horn Cerebral angiography 05/21 revealed no signs of vasospasm or aneurysm CTA brain no vasospasm 05/24 Dr. Jeronimo/neurosurgery placed ICP monitor. EVD lowered to +5 after headache symptoms. management per nsgy. s/p 7 days keppra ppx 05/19 - 05/25. nimodipine 60 mg by mouth every 4 hours Goal systolic blood pressure less than 140 Transcranial Dopplers daily. - still no evidence of vasospasm. EEG 05/21 reveals moderate encephalopathy no epileptic activity continue frequent neuro checks continue daily TCDs. Respiratory: Acute hypoxic and hypercarbic respiratory failure - worsening New respiratory distress extubated 05/25. wean o2 for goal spo2 > 90% continue prn nebs aggressive pulmonary toilet. PT consult f/u sputum culture. Cardiovascular Hypotension - resolved. h/o Hypertension SL ivf. - off vasopressors. GI/liver Hypoalbuminemia intravascular volume overload - improving. swallow eval: mechanical soft, re-eval daily. Docusate sodium/senna twice a day for bowel regimen. Add polyethylene glycol and lactulose twice daily. metoclopramide 5 mg IV every 8 hours 5 days for prokinetic bowel activity lasix 40mg iv x 1. HEME Normocytic anemia Thrombocytopenia Monitor CBC daily. Follow trends Does not meet transfusion threshold at this time : d/c cardenas: place condom cath. ID: New fever Leukocytosis - send u/a, blood cultures, CSF - CXR - start vancomycin with pharmacy dosing - start cefepime 2gm iv q8hr RENAL: Creatinine currently within normal limits Monitor urine output Accurate I's and O's FEN: Hyperchloremia Replace electrolytes as clinically indicated per ICU electrolyte protocol DVT GI prophylaxis - Teds SCDs - No pharmacological DVT prophylaxis due to acute ICH -Famotidine for GI prophylaxis keep central line today given clinical decline. Dispo: remain in ICU. Min Wang MD May 27, 2017 09:47
[2017-05-27 10:31] LABS: CSF NEUTROPHILS 85 %; GROSS BLOOD TUBE #1 4+ (0); SUPERNATE COLOR TUBE #1 SLIGHTLY XANTHOCHROM (CLEAR); VOLUME TUBE # 1 3.5 ML; WBC TUBE #1 125 /MM3 (0-10)
[2017-05-27 10:32] LABS: CSF LYMPHOCYTES 13 %; CSF MONOCYTES 2 %
[2017-05-27] MEDS: VANCOMYCIN INJ 1,750 MG in SODIUM CHLORID 0.9% 500 ML INJ 500 ML IV SCH ×2 (10:54→22:18)
[2017-05-27 12:56] LABS: BLOOD, URINE TRACE (NEG); GLUCOSE,URINE NEG (NEG); KETONE, URINE TRACE mg/dL (NEG); MUCUS URINE FEW /lpf (OCC); NITRITE,URINE NEG (NEG); PH, URINE 5.5 (5.0-8.5); TRANSITIONAL EPI CELLS, URINE <1 /hpf; URINE COLOR LIGHT-YELLOW (YELLW/STRAW)
[2017-05-27 12:57] LABS: COMMENT (UR) CATH-CULTURE IND; CULTURE IF INDICATED CATH CULTURE IND
[2017-05-27] MEDS ORDERED: MAGNESIUM SULFATE 1 GM PREMIX 200 ML ONE (14:42)
[2017-05-27] MEDS ORDERED: METOPROLOL TARTRATE 5 MG/5 ML VIAL ONE (14:42)
[2017-05-27] MEDS ORDERED: MAGNESIUM SULFATE 1 GM PREMIX 100 ML ONE (14:47)
--- NOTE | 2017-05-27 14:51 | RADRPT ---
EXAM DATE/TIME: 05/27/2017 11:54 [facility] COMPARISON: US TRANSCRANIAL DOPPLER COMPLETE, May 26, 2017, 8:35. INDICATIONS : Subarachnoid hemorrhage. MEDICAL HISTORY : Headache. Subarachnoid hemorrhage. SURGICAL HISTORY : Ventriculostomy drain placement. Vasectomy. ENCOUNTER: Subsequent ACUITY: 1 week PAIN SCORE: 7/10 LOCATION: cranial Current Exam: May 27, 2017 [place] Ratio: Right: 1.1 Left: 1.1 [place] Ratio: Right: 2.9 Left: 1.7 Previous Exam: May 26, 2017 [place] Ratio: Right: 2.5 Left: 2.8 [place] Ratio: Right: 2.2 Left: 1.4 FINDINGS: Examination performed at bedside. Real-time ultrasound with the assistance of color and spectral Dop pler was utilized to evaluate the intracerebral circulation. Time-averaged maximal velocities are ca lculated in cm/s. Intracranial circulatory indices are stable and satisfactory. CONCLUSION: No evidence of vasospasm Kyree Mohan MD on May 27, 2017 at 14:48 Board Certified Radiologist. This report was verified electronically.
[2017-05-27] MEDS ORDERED: MAGNESIUM SULFATE 2 GM/NS 100 ML IV ONE ×2 (15:00)
[2017-05-27] MEDS: POTASSIUM CHLOR 40 MEQ PREMIX 100 ML IV PRN ×2 (15:16→17:15)
[2017-05-27 15:43] LABS: BICARBONATE 28.1 MEQ/L (21.0-32.0); MAGNESIUM 2.9 MG/DL (1.5-2.5); POTASSIUM 3.3 MEQ/L (3.5-5.1)
[2017-05-28] VITALS (13 sets, daily range): BP systolic 139–161; BP diastolic 60–85; PULSE 70–98; RESP 19–25; TEMP 98.8–100.6; O2SAT 96–100
[2017-05-28] MEDS: CEFEPIME INJ 2,000 MG in SODIUM CHLORIDE 0.9% INJ 100 ML IV SCH ×3 (00:25→16:42)
[2017-05-28] MEDS: ACETAMINOPHEN 1000 MG/100 ML 100 ML IV PRN (02:27)
[2017-05-28] MEDS: hydrALAZINE HCL 20 MG/ML VIAL IV PRN ×3 (02:27→23:18)
[2017-05-28] MEDS: niMODipine 30 MG CAP PO SCH ×6 (02:37→21:36)
[2017-05-28] MEDS: CHLORHEXIDINE GLUCONATE 2 % 1 PACK (2 CLOTHS) TOP SCH (04:00)
[2017-05-28 05:08] LABS: HEMATOCRIT 36.2 % (39.0-51.0); MEAN CELL VOLUME 91.7 FL (80.0-100.0); MEAN CORPUSCULAR HEMOGLOBIN 30.2 PG (27.0-34.0); PLATELET COUNT 239 TH/MM3 (150-450); RED BLOOD COUNT 3.95 MIL/MM3 (4.50-5.90); RED CELL DISTRIBUTION WIDTH 14.3 % (11.6-17.2); WHITE BLOOD COUNT 12.2 TH/MM3 (4.0-11.0)
[2017-05-28 05:09] LABS: REVIEW FLAG FINAL
[2017-05-28] MEDS: INSULIN NovoLIN REGULAR SUPPLEMENTAL SCALE SQ SCH ×4 (06:00→18:00)
[2017-05-28] MEDS: ARTIFICIAL TEARS OPTH SOLN 15 ML BTL EACH EYE SCH ×3 (06:00→21:36)
[2017-05-28] MEDS: chlorproMAZINE HCL 25 MG TAB PO SCH ×3 (06:00→21:36)
[2017-05-28] MEDS: LACTULOSE SYRUP 20 GM/30 ML CUP PO SCH ×2 (09:00→20:17)
[2017-05-28] MEDS: POLYETHYLENE GLYCOL 17 GM PKG NG SCH ×2 (09:00→20:17)
[2017-05-28] MEDS: SODIUM CHLORIDE 0.9% FLUSH 10 ML FLUSH IV FLUSH SCH ×2 (09:54→20:18)
[2017-05-28] MEDS: FAMOTIDINE 20 MG TAB NG SCH ×2 (09:54→21:35)
[2017-05-28] MEDS: DOCUSATE SODIUM 50 MG/SENNA 8.6 MG TAB PO SCH ×2 (09:55→20:17)
--- NOTE | 2017-05-28 10:00 | RADRPT ---
EXAM DATE/TIME: 05/28/2017 07:58 [facility] COMPARISON: US TRANSCRANIAL DOPPLER COMPLETE, May 27, 2017, 11:54. INDICATIONS : Subarachnoid hemorrhage. MEDICAL HISTORY : Subarachnoid hemorrhage. Headache. SURGICAL HISTORY : Ventriculostomy drain placement. Vasectomy. ENCOUNTER: Subsequent ACUITY: 1 week PAIN SCORE: 1/10 LOCATION: Bilateral cranial Current Exam: May 28, 2017 [place] Ratio: Right: 1.3 Left: 3.1 [place] Ratio: Right: 1.3 Left: 1.6 Previous Exam: May 27, 2017 [place] Ratio: Right: 1.1 Left: 1.1 [place] Ratio: Right: 2.9 Left: 1.7 FINDINGS: Examination performed at bedside. Real-time ultrasound with the assistance of color and spectral Dop pler was utilized to evaluate the intracerebral circulation. Time-averaged maximal velocities are ca lculated in cm/s. Due to technical limitations, unable to visualize distal right anterior cerebral artery. CONCLUSION: No Doppler findings of vasospasm. Jamar Perez MD on May 28, 2017 at 9:51 Board Certified Radiologist. This report was verified electronically.
--- NOTE | 2017-05-28 10:02 | HHI.NSPN ---
(Dillon Cross) History Chief Complaint: Diffuse SAH. (Dillon Cross) Interval History A 62-year-old gentleman who was brought to [facility] emergency room after presenting with A sudden onset of severe headache. Apparently, HE was hanging a large [place] tree and had to strain a lot and then subsequently noticed this headache which is bifrontal. He has also had some nausea and small bouts of vomiting, especially when he is moved from the stretcher to the CT scanner as well as the moment up to the intensive care unit. He denies any numbness or paresthesias in the upper or lower extremities or any double vision or blurred vision. CT scan of the head obtained reveals extensive subarachnoid hemorrhage involving the prepontine cistern, basal cisterns, suprasellar cistern, interhemispheric fissure and bilateral sylvian fissure. There is mild hydrocephalus with dilation of temporal horns noted also. Subsequent CT angiogram of the brain was obtained which does not reveal any underlying aneurysm. CTA of the neck is also negative. 05/20/17: Pt sedated on Diprivan. Pupils 2mm bilaterally, slight brisk reaction bilaterally. Ventriculostomy drain placed this morning by Dr. Jeronimo. ICPs 11. 05/21/17: Pt sedated on Diprivan and Fentanyl. Intubated. Pupils 2mm bilaterally reactive bilaterally. Ventriculostomy drain in place with blood tinged CSF at 10cm H2O. ICP 6-8. 05/22/17: Pt sedated on Diprivan and Fentanyl drips. Intubated. Ventriculostomy drain in place at [id number] with bloody CSF drainage. ICP 8-10 05/23/17: Pt sedated on Diprivan and Fentanyl drips weaning dose. Intubated. Ventriculostomy drain in place at [id number] with bloody CSF drainage. ICP 5-10 range with good waveform. 05/24/17: Pt sedated on Diprivan and Fentanyl drips. Held for few minutes and pt becomes very agitated. Moves all 4 extremities but not following commands secondary to agitation. 05/25/17: Pt sedated on low dose Fentanyl and Precedex drips for agitation during the weaning process. Pt opens eyes. Follows some simple commands. Intubated on CPAP currently. 05/28/17: Pt awake, lethargic but interacts. Denies headache, nausea, vomiting , or paresthesias. Pt motivated to leave hospital but understands needs to cooperate with plan. (Dillon Cross) Review of Systems General: Negative for: fever, chills, insomnia Respiratory: Negative for: shortness of breath, cough, sputum Cardiovascular: Negative for: chest pain Gastrointestinal: Negative for: nausea, vomitting, diarrhea, constipation ( Dillon Cross) Exam Results Vital Signs Date Time Temp Pulse Resp B/P (MAP) Pulse Ox O2 Delivery O2 Flow Rate FiO2 05/28/17 06:00 89 05/28/17 04:00 100.6 24 139/67 (91) 98 05/27/17 21:24 Simple Mask 10.00 05/25/17 20:48 50 Intake and Output 05/28/17 05/28/17 05/29/17 08:00 16:00 00:00 Intake Total 800 ml Output Total 1350 ml Balance -550 ml (Dillon Cross) Physical Examination General: Pt resting in bed fatigued but interacting asking questions with stable vital signs. Eyes: Pupils equal 3mm bilaterally reactive bilaterally. Sclera anicteric. Resp: CTA bilaterally. On O2 via mask. Heart: NSR no murmurs Abd: Soft positive bs Skin: No cyanosis or erythema. SCDs in place. Muscle: Moves all 4 extremities well. Neuro: Pt awake although fatigued. Pupils 3mm bilaterally reactive bilaterally. Speech soft but appropriate. Follows commands well. Ventriculostomy in place at 5cmH20. ICP 7. Blood tinged CSF. (Dillon Cross) Lab, Micro, Other Results Last Impressions Transcranial Doppler Study Complete 05/27/17 1000 Signed Impressions: Service Date/Time: Saturday, May 27, 2017 11:54 - CONCLUSION: No evidence of vasospasm Kyree Mohan MD Chest X-Ray 05/27/17 0000 Signed Impressions: Service Date/Time: Saturday, May 27, 2017 08:52 - CONCLUSION: Persistent bibasilar consolidation. Dillon Spring MD Head CTA 05/24/17 0000 Signed Impressions: Service Date/Time: April 10:33 - CONCLUSION: No aneurysm or vasospasm. Sj Post Jr., MD Abdomen X-Ray 05/23/17 0000 Signed Impressions: Service Date/Time: Tuesday, May 23, 2017 10:50 - CONCLUSION: No dilated loops of bowel. No significant stool burden. Sj Post Jr., MD Cerebral Arteriogram 05/21/17 0600 Signed Impressions: Service Date/Time: Sunday, May 21, 2017 09:48 - CONCLUSION: 1. Four-vessel selective angiography was performed with cross compression views. No discrete aneurysm was identified. Due to the extensive amount of hemorrhage on the patient's CT scan I would recommend this patient undergo either followup CT angiography or followup conventional angiography for further assessment. Hipolito Mccollum MD Head CT 05/20/17 0600 Signed Impressions: Service Date/Time: Saturday, May 20, 2017 04:06 - CONCLUSION: 1. Slight interval increase in intraventricular hemorrhage compared to the prior study. The occipital horns are slightly more prominent as well. 2. The subarachnoid hemorrhage is not significantly changed. Eduardo Porter MD Neck CTA 05/19/17 0000 Signed Impressions: Service Date/Time: Friday, May 19, 2017 16:49 - CONCLUSION: Negative CTA. No focal areas of stenosis seen. Sj Carver MD Laboratory Tests Test 05/27/17 11:52 05/27/17 15:05 05/28/17 05:00 Urine Color LIGHT-YELLOW Urine Turbidity CLEAR Urine pH 5.5 Urine Specific [place] 1.012 Urine Protein TRACE mg/dL Urine Glucose (UA) NEG mg/dL Urine Ketones TRACE mg/dL Urine Occult Blood TRACE Urine Nitrite NEG Urine Bilirubin NEG Urine Urobilinogen LESS THAN 2.0 MG/DL Urine Leukocyte Esterase SMALL Urine RBC 2 /hpf Urine WBC 13 /hpf Urine Transitional Epithelial Cells <1 /hpf Urine Mucus FEW /lpf Microscopic Urinalysis Comment CATH-CULTURE IND Blood Urea Nitrogen 21 MG/DL 29 MG/DL Creatinine 0.88 MG/DL 0.93 MG/DL Random Glucose 147 MG/DL 126 MG/DL Calcium Level 8.4 MG/DL 8.3 MG/DL Phosphorus Level 3.6 MG/DL Magnesium Level 2.9 MG/DL Sodium Level 143 MEQ/L 146 MEQ/L Potassium Level 3.3 MEQ/L 4.0 MEQ/L Chloride Level 107 MEQ/L 111 MEQ/L Carbon Dioxide Level 28.1 MEQ/L 27.0 MEQ/L Anion Gap 8 MEQ/L 8 MEQ/L Estimat Glomerular Filtration Rate 88 ML/MIN 83 ML/MIN White Blood Count 12.2 TH/MM3 Red Blood Count 3.95 MIL/MM3 Hemoglobin 12.0 GM/DL Hematocrit 36.2 % Mean Corpuscular Volume 91.7 FL Mean Corpuscular Hemoglobin 30.2 PG Mean Corpuscular Hemoglobin Concent 33.0 % Red Cell Distribution Width 14.3 % Platelet Count 239 TH/MM3 Mean Platelet Volume 7.0 FL (Dillon Cross) Medical Decision Making Impression and Plan A: 1. Diffuse subarachnoid hemorrhage without any underlying aneurysm on CT angiogram of the brain. Follow up CTA on 05/21 again reveals no aneurysm or cause. Follow up CTAs of the brain have not revealed any aneurysm or vasospasm. 2. Mild early hydrocephalus. s/p ventriculostomy placement on 05/20 Pt remains in critical condition. PLAN Continue with close neuro checks Continue with ICP monitoring and treatment, Challenge ventric. Continue with SCDs for DVT prophylaxis Continue with keppra for seizure prophylaxis Continue with Nimotop for vasospasm prophylaxis. Updated family at bedside. (Dillon Cross) Attending Statement The exam, history, and the medical decision-making described in the above note were completed with the assistance of the mid-level provider. I reviewed and agree with the findings presented. I attest that I had a [id number] encounter with the patient on the same day, and personally performed and documented my assessment and findings in the medical record. Denies any headaches. ICPs are low. We'll challenge ventric to 20 cm level and monitor ICP. Out of bed with physical therapy. No vasospasm noted on TCD. Continue with critical care management and supportive care. Updated family at bedside and discussed with nursing staff. (Franky Jeronimo MD) Dillon Cross May 28, 2017 10:02 Franky Jeronimo MD May 28, 2017 16:54
[2017-05-28] MEDS: VANCOMYCIN INJ 1,750 MG in SODIUM CHLORID 0.9% 500 ML INJ 500 ML IV SCH ×2 (11:59→23:13)
--- NOTE | 2017-05-28 16:36 | HHI.CCPN ---
Subjective Remarks/Hospital Course 05/19: 62-year-old male with no significant past medical history, presents here with sudden onset headache. Patient states he was pushing up a heavy [place] tree when he had a sudden onset of bifrontal and top of his head pain. He has never experienced similar pain before. He did not pass out. He did not fell off the ladder. He reports the pain as sharp and severe. He denies any weakness of his extremities. He denies any neck pain. The patient is currently taking no medications. He has no family history of headaches or subarachnoid bleed. The CT of the head revealed extensive subarachnoid bleed supratentorial and infratentorial. Head and neck CTA both negative for aneurysm. 05/20: Patient reintubated for worsening neurologic status this morning and placed on mechanical ventilation. Neurosurgery placed a ventriculostomy. When I evaluated the patient he was sedated with propofol, orally intubated on mechanical ventilation. He had just been started on Levophed to maintain CPP. 05/21: Afebrile. Patient remains bradycardic. Currently sedated with propofol along with fentanyl drips. Tolerating tube feeding. No bowel movement. Currently not following commands but on sedation. Plan for formal cerebral arteriogram today 05/22: Afebrile. Noted negative results from's formal cerebral arteriogram yesterday. EEG revealed moderate encephalopathy however no signs of acute epileptiform activity. Tube feeds currently off with residuals around 200 cc. No bowel movement since admission. 05/23: Episode of singultus overnight after respiratory therapy. Did resolved with vagal maneuver yesterday. No bowel movement. Tube feeds currently at 40 cc an hour. 05/24: Currently on dexmedetomidine for PSV trial. Per minute singultus. Transcanal Doppler/CTA brain revealed no acute vasospasm today 05/24. Tolerating tube feeds. Positive BM. 05/25: extubated this AM after passing SBT. however, this afternoon now on NRB. still following commands. TCDs from today pending. no other changes. denies complaints. ROS negative. 05/26: doing well, on NC o2. diuresed well yesterday. TCDs negative for vasospasm. clinical exam stable. ROS negative. had some headache with challenging of EVD yesterday, EVD lowered to 5 today. 05/27: in more respiratory distress this morning. subjectively feels worse, although he cannot completely describe any specific symptoms. says "he feels like he cannot move", but strength is equal and at baseline. wbc elevated and new fever today. flores cultures sent, vanc/cefepime started. cxr and u/a ordered. TCDs continue to be negative. Subjective 05/28: clinically much better than before. slightly CAM+ today. urine culture growing GNR. back to simple mask o2 and not in distress. TCDs negative. Objective Vital Signs Date Time Temp Pulse Resp B/P (MAP) Pulse Ox O2 Delivery O2 Flow Rate FiO2 05/28/17 16:00 75 05/28/17 12:00 98.9 22 143/68 (93) 99 05/28/17 10:20 Simple Mask 10.00 05/28/17 07:00 50 Intake and Output 05/28/17 05/28/17 05/29/17 08:00 16:00 00:00 Intake Total 800 ml Output Total 1350 ml Balance -550 ml Result Diagram: 05/28/17 0500 05/28/17 0500 Imaging Last Impressions Transcranial Doppler Study Complete 05/24/17 0600 Signed Impressions: Service Date/Time: April 08:45 - CONCLUSION: No vasospasm. Sj Post Jr., MD Head CTA 05/24/17 0000 Signed Impressions: Service Date/Time: April 10:33 - CONCLUSION: No aneurysm or vasospasm. Sj Post Jr., MD Chest X-Ray 05/24/17 0000 Signed Impressions: Service Date/Time: April 09:34 - CONCLUSION: 1. Endotracheal tube tip now lies approximately 6.6 cm above the claudette. 2. Improved aeration with consolidation again noted in both lungs right greater than left. Eduardo Porter MD Abdomen X-Ray 05/23/17 0000 Signed Impressions: Service Date/Time: Tuesday, May 23, 2017 10:50 - CONCLUSION: No dilated loops of bowel. No significant stool burden. Sj Post Jr., MD Cerebral Arteriogram 05/21/17 0600 Signed Impressions: Service Date/Time: Sunday, May 21, 2017 09:48 - CONCLUSION: 1. Four-vessel selective angiography was performed with cross compression views. No discrete aneurysm was identified. Due to the extensive amount of hemorrhage on the patient's CT scan I would recommend this patient undergo either followup CT angiography or followup conventional angiography for further assessment. Hipolito Mccollum MD Head CT 05/20/17 0600 Signed Impressions: Service Date/Time: Saturday, May 20, 2017 04:06 - CONCLUSION: 1. Slight interval increase in intraventricular hemorrhage compared to the prior study. The occipital horns are slightly more prominent as well. 2. The subarachnoid hemorrhage is not significantly changed. Eduardo Porter MD Neck CTA 05/19/17 0000 Signed Impressions: Service Date/Time: Friday, May 19, 2017 16:49 - CONCLUSION: Negative CTA. No focal areas of stenosis seen. Sj Carver MD Objective Remarks GENERAL: 62-year-old male, sitting in bed. SKIN: Warm and dry. No rash HEAD: right ventriculostomy currently at +20 cm H2O EYES: Pupils equal and round around 2-3 mm and slightly reactive. No scleral icterus. No injection or drainage. ENT: No nasal bleeding or discharge. Mucous membranes pink and moist. face mask o2. NECK: Trachea midline. No JVD. CARDIOVASCULAR: normal rate, regular rhythm. RESPIRATORY: face mask o2. unlabored. equal chest rise. GASTROINTESTINAL: Abdomen soft, non-tender, nondistended. MUSCULOSKELETAL: Extremities without significant peripheral edema. No obvious deformities. NEUROLOGICAL: Cranial nerves II through XII appear grossly intact. FC x 4. no neuro deficits. JHON 5/5 in all extremities. Date of Insertion: May 20, 2017 Line: Central Venous Catheter Side: Right Location: Subclavian A/P Assessment and Plan Assessment: 62yM s/p non-traumatic SAH. clinically improving. infection likely source of yesterday's clinical decline. now on abx and clinically improving. f/ u cultures. continue TCDs. remain in ICU. NEURO/PSYCH: Subarachnoid hemorrhage Singultus CT brain 05/19 revealed open infratentorial subarachnoid hemorrhage Subarachnoid blood in the sylvian fissures, anterior hemispheric fissure, brainstem and pre-pontine region CT angiogram head and neck revealed no acute aneurysm Repeat CT brain 05/20 revealed no further hemorrhage but now has developed moderate hydrocephalus with some intraventricular hemorrhage in the occipital horn Cerebral angiography 05/21 revealed no signs of vasospasm or aneurysm CTA brain no vasospasm 05/24 Dr. Jeronimo/neurosurgery placed ICP monitor. EVD management per nsgy. currently challenging drain. s/p 7 days keppra ppx 05/19 - 05/25. nimodipine 60 mg by mouth every 4 hours Goal systolic blood pressure less than 140 Transcranial Dopplers daily. - still no evidence of vasospasm. EEG 05/21 reveals moderate encephalopathy no epileptic activity continue frequent neuro checks continue daily TCDs. Respiratory: Acute hypoxic and hypercarbic respiratory failure - improving extubated 05/25. wean o2 for goal spo2 > 90% continue prn nebs aggressive pulmonary toilet. PT consult Cardiovascular Hypotension - resolved. h/o Hypertension SL ivf. - off vasopressors. GI/liver Dysphagia Hypoalbuminemia intravascular volume overload - improving. speech following for swallow eval and dysphagia. Docusate sodium/senna twice a day for bowel regimen. Add polyethylene glycol and lactulose twice daily. metoclopramide 5 mg IV every 8 hours 5 days for prokinetic bowel activity hold further diuresis today. HEME Normocytic anemia Thrombocytopenia Monitor CBC daily. Follow trends Does not meet transfusion threshold at this time : d/c cardenas: place condom cath. ID: New fever Leukocytosis - f/u urine culture - continue vancomycin with pharmacy dosing - continue cefepime 2gm iv q8hr RENAL: Creatinine currently within normal limits Monitor urine output Accurate I's and O's FEN: Hyperchloremia Replace electrolytes as clinically indicated per ICU electrolyte protocol DVT GI prophylaxis - Teds SCDs - No pharmacological DVT prophylaxis due to acute ICH -Famotidine for GI prophylaxis d/c central line. Dispo: remain in ICU. Min Wagn MD May 28, 2017 16:36
[2017-05-28] MEDS ORDERED: PHARMACY ORDERED LAB ONE (22:45)
[2017-05-29] VITALS (14 sets, daily range): BP systolic 141–163; BP diastolic 65–72; PULSE 51–100; RESP 14–26; TEMP 98.6–101.1; O2SAT 92–98
[2017-05-29] MEDS: CEFEPIME INJ 2,000 MG in SODIUM CHLORIDE 0.9% INJ 100 ML IV SCH ×2 (01:00→09:16)
[2017-05-29] MEDS: niMODipine 30 MG CAP PO SCH ×6 (02:00→22:28)
[2017-05-29] MEDS: CHLORHEXIDINE GLUCONATE 2 % 1 PACK (2 CLOTHS) TOP SCH (04:00)
[2017-05-29 04:50] LABS: HEMATOCRIT 36.3 % (39.0-51.0); MEAN CELL VOLUME 91.7 FL (80.0-100.0); MEAN CORPUSCULAR HGB CONC 32.7 % (32.0-36.0); PLATELET COUNT 253 TH/MM3 (150-450); RED BLOOD COUNT 3.96 MIL/MM3 (4.50-5.90); RED CELL DISTRIBUTION WIDTH 13.9 % (11.6-17.2); REVIEW FLAG FINAL; WHITE BLOOD COUNT 11.1 TH/MM3 (4.0-11.0)
[2017-05-29] MEDS: ARTIFICIAL TEARS OPTH SOLN 15 ML BTL EACH EYE SCH ×3 (05:01→22:00)
[2017-05-29 05:11] LABS: BICARBONATE 24.1 MEQ/L (21.0-32.0); POTASSIUM 3.5 MEQ/L (3.5-5.1)
[2017-05-29] MEDS: chlorproMAZINE HCL 25 MG TAB PO SCH ×3 (06:00→22:00)
[2017-05-29] MEDS: INSULIN NovoLIN REGULAR SUPPLEMENTAL SCALE SQ SCH ×5 (06:00→23:34)
[2017-05-29] MEDS: POLYETHYLENE GLYCOL 17 GM PKG NG SCH ×2 (09:00→20:19)
[2017-05-29] MEDS: DOCUSATE SODIUM 50 MG/SENNA 8.6 MG TAB PO SCH ×2 (09:00→20:19)
[2017-05-29] MEDS: SODIUM CHLORIDE 0.9% FLUSH 10 ML FLUSH IV FLUSH SCH ×2 (09:00→20:19)
[2017-05-29] MEDS: LACTULOSE SYRUP 20 GM/30 ML CUP PO SCH ×2 (09:00→20:19)
[2017-05-29] MEDS: FAMOTIDINE 20 MG TAB NG SCH ×2 (09:16→20:20)
--- NOTE | 2017-05-29 09:43 | HHI.NSPN ---
(Dillon Cross) History Chief Complaint: Diffuse SAH. (Dillon Cross) Interval History A 62-year-old gentleman who was brought to [facility] emergency room after presenting with A sudden onset of severe headache. Apparently, HE was hanging a large [place] tree and had to strain a lot and then subsequently noticed this headache which is bifrontal. He has also had some nausea and small bouts of vomiting, especially when he is moved from the stretcher to the CT scanner as well as the moment up to the intensive care unit. He denies any numbness or paresthesias in the upper or lower extremities or any double vision or blurred vision. CT scan of the head obtained reveals extensive subarachnoid hemorrhage involving the prepontine cistern, basal cisterns, suprasellar cistern, interhemispheric fissure and bilateral sylvian fissure. There is mild hydrocephalus with dilation of temporal horns noted also. Subsequent CT angiogram of the brain was obtained which does not reveal any underlying aneurysm. CTA of the neck is also negative. 05/20/17: Pt sedated on Diprivan. Pupils 2mm bilaterally, slight brisk reaction bilaterally. Ventriculostomy drain placed this morning by Dr. Jeronimo. ICPs 11. 05/21/17: Pt sedated on Diprivan and Fentanyl. Intubated. Pupils 2mm bilaterally reactive bilaterally. Ventriculostomy drain in place with blood tinged CSF at 10cm H2O. ICP 6-8. 05/22/17: Pt sedated on Diprivan and Fentanyl drips. Intubated. Ventriculostomy drain in place at [id number] with bloody CSF drainage. ICP 8-10 05/23/17: Pt sedated on Diprivan and Fentanyl drips weaning dose. Intubated. Ventriculostomy drain in place at [id number] with bloody CSF drainage. ICP 5-10 range with good waveform. 05/24/17: Pt sedated on Diprivan and Fentanyl drips. Held for few minutes and pt becomes very agitated. Moves all 4 extremities but not following commands secondary to agitation. 05/25/17: Pt sedated on low dose Fentanyl and Precedex drips for agitation during the weaning process. Pt opens eyes. Follows some simple commands. Intubated on CPAP currently. 05/28/17: Pt awake, lethargic but interacts. Denies headache, nausea, vomiting , or paresthesias. Pt motivated to leave hospital but understands needs to cooperate with plan. 05/29/17: Pt awake and more alert. Denies headache. Some periods of nausea last was yesterday. No paresthesias. Ventric in place at [id number]. [id number]. (Dillon Cross) Review of Systems General: Negative for: fever, chills, insomnia Respiratory: Negative for: shortness of breath, cough, sputum Cardiovascular: Negative for: chest pain Gastrointestinal: Positive for: nausea, Negative for: vomitting, diarrhea, constipation (Dillon Cross) Exam Results Vital Signs Date Time Temp Pulse Resp B/P (MAP) Pulse Ox O2 Delivery O2 Flow Rate FiO2 05/29/17 07:52 94 21 05/29/17 06:00 78 05/29/17 04:00 98.6 22 152/67 (95) 05/28/17 19:00 Room Air 05/28/17 10:20 10.00 Intake and Output 05/29/17 05/29/17 05/30/17 08:00 16:00 00:00 Intake Total 977.5 ml Output Total 935 ml Balance 42.5 ml (Dillon Cross) Physical Examination General: Pt resting in bed fatigued but interacting asking questions with stable vital signs. Eyes: Pupils equal 3mm bilaterally reactive bilaterally. Sclera anicteric. Resp: CTA bilaterally. Positive cough with sputum per pt. Heart: NSR no murmurs Abd: Soft positive bs Skin: No cyanosis or erythema. SCDs in place. Muscle: Moves all 4 extremities well. Neuro: Pt awake although fatigued. Pupils 3mm bilaterally reactive bilaterally. Speech soft but appropriate. Follows commands well. Ventriculostomy in place at [id number]. ICP 10-14. Blood tinged CSF. (Dillon Cross) Lab, Micro, Other Results 05/29/17 05/29/17 05/30/17 15:00 23:00 07:00 Output Total 85 ml Balance -85 ml Drainage Total 85 ml (Dillon Cross) Medical Decision Making Impression and Plan A: 1. Diffuse subarachnoid hemorrhage without any underlying aneurysm on CT angiogram of the brain. Follow up CTA on 05/21 again reveals no aneurysm or cause. Follow up CTAs of the brain have not revealed any aneurysm or vasospasm. 2. Mild early hydrocephalus. s/p ventriculostomy placement on 05/20 Pt remains in critical condition. PLAN Continue with close neuro checks Continue with ICP monitoring and treatment, Challenge ventric, currently at 20 and tolerating. Continue with SCDs for DVT prophylaxis Continue with keppra for seizure prophylaxis Continue with Nimotop for vasospasm prophylaxis. Updated family at bedside. (Dillon Cross) Attending Statement The exam, history, and the medical decision-making described in the above note were completed with the assistance of the mid-level provider. I reviewed and agree with the findings presented. I attest that I had a [id number] encounter with the patient on the same day, and personally performed and documented my assessment and findings in the medical record. Denies any headaches with ventriculostomy a 20 cm level and normal ICPs. We'll clamp ventriculostomy and monitor ICPs and clinical response. Complains of insomnia and agitation at nighttime is more lucid and calm during the day. Continue with close observation. Updated at bedside. (Franky Jeronimo MD) Dillon Cross May 29, 2017 09:43 Franky Jeronimo MD May 29, 2017 15:52
[2017-05-29] MEDS: VANCOMYCIN INJ 1,750 MG in SODIUM CHLORID 0.9% 500 ML INJ 500 ML IV SCH (10:42)
--- NOTE | 2017-05-29 11:25 | RADRPT ---
EXAM DATE/TIME: 05/29/2017 08:39 [place] COMPARISON: US TRANSCRANIAL DOPPLER COMPLETE, May 28, 2017, 7:58. INDICATIONS : Subarachnoid hemorrhage. MEDICAL HISTORY : Subarachnoid hemorrhage. Headache. SURGICAL HISTORY : Ventriculostomy drain placement. Vasectomy. ENCOUNTER: Sequela ACUITY: 1 week PAIN SCORE: 2/10 LOCATION: Bilateral cranial Current Exam: May 29, 2017 [place] Ratio: Right: 2.4 Left: 2.9 [place] Ratio: Right: 2.4 Left: 2.6 Previous Exam: May 28, 2017 [place] Ratio: Right: 1.3 Left: 3.1 [place] Ratio: Right: 1.3 Left: 1.6 FINDINGS: Examination performed at bedside. Real-time ultrasound with the assistance of color and spectral Dop pler was utilized to evaluate the intracerebral circulation. Time-averaged maximal velocities are ca lculated in cm/s. There are no findings of vasospasm. CONCLUSION: 1. No evidence of vasospasm Thomas Siu MD on May 29, 2017 at 11:20 Board Certified Radiologist. This report was verified electronically.
--- NOTE | 2017-05-29 14:46 | HHI.CCPN ---
Subjective Remarks/Hospital Course 05/19: 62-year-old male with no significant past medical history, presents here with sudden onset headache. Patient states he was pushing up a heavy [place] tree when he had a sudden onset of bifrontal and top of his head pain. He has never experienced similar pain before. He did not pass out. He did not fell off the ladder. He reports the pain as sharp and severe. He denies any weakness of his extremities. He denies any neck pain. The patient is currently taking no medications. He has no family history of headaches or subarachnoid bleed. The CT of the head revealed extensive subarachnoid bleed supratentorial and infratentorial. Head and neck CTA both negative for aneurysm. 05/20: Patient reintubated for worsening neurologic status this morning and placed on mechanical ventilation. Neurosurgery placed a ventriculostomy. When I evaluated the patient he was sedated with propofol, orally intubated on mechanical ventilation. He had just been started on Levophed to maintain CPP. 05/21: Afebrile. Patient remains bradycardic. Currently sedated with propofol along with fentanyl drips. Tolerating tube feeding. No bowel movement. Currently not following commands but on sedation. Plan for formal cerebral arteriogram today 05/22: Afebrile. Noted negative results from's formal cerebral arteriogram yesterday. EEG revealed moderate encephalopathy however no signs of acute epileptiform activity. Tube feeds currently off with residuals around 200 cc. No bowel movement since admission. 05/23: Episode of singultus overnight after respiratory therapy. Did resolved with vagal maneuver yesterday. No bowel movement. Tube feeds currently at 40 cc an hour. 05/24: Currently on dexmedetomidine for PSV trial. Per minute singultus. Transcanal Doppler/CTA brain revealed no acute vasospasm today 05/24. Tolerating tube feeds. Positive BM. 05/25: extubated this AM after passing SBT. however, this afternoon now on NRB. still following commands. TCDs from today pending. no other changes. denies complaints. ROS negative. 05/26: doing well, on NC o2. diuresed well yesterday. TCDs negative for vasospasm. clinical exam stable. ROS negative. had some headache with challenging of EVD yesterday, EVD lowered to 5 today. 05/27: in more respiratory distress this morning. subjectively feels worse, although he cannot completely describe any specific symptoms. says "he feels like he cannot move", but strength is equal and at baseline. wbc elevated and new fever today. flores cultures sent, vanc/cefepime started. cxr and u/a ordered. TCDs continue to be negative. 05/28: clinically much better than before. slightly CAM+ today. urine culture growing GNR. back to simple mask o2 and not in distress. TCDs negative. Subjective 05/29: continues to improve. CAM - this morning. urine growing e-coli. TCDs negative. EVD clamped. Objective Vital Signs Date Time Temp Pulse Resp B/P (MAP) Pulse Ox O2 Delivery O2 Flow Rate FiO2 05/29/17 12:00 72 05/29/17 12:00 100.1 18 163/72 (102) 95 05/29/17 07:52 21 05/29/17 07:00 Room Air 05/28/17 10:20 10.00 Intake and Output 05/29/17 05/29/17 05/30/17 08:00 16:00 00:00 Intake Total 977.5 ml Output Total 935 ml Balance 42.5 ml Result Diagram: 05/29/17 0409 05/29/17 0409 Other Results Microbiology Date/Time Source Procedure Growth Status 05/27/17 11:52 Urine Catheterized Urine Urine Culture - Final Escherichia Coli Complete Imaging Last Impressions Transcranial Doppler Study Complete 05/24/17 0600 Signed Impressions: Service Date/Time: April 08:45 - CONCLUSION: No vasospasm. Sj Post Jr., MD Head CTA 05/24/17 0000 Signed Impressions: Service Date/Time: April 10:33 - CONCLUSION: No aneurysm or vasospasm. Sj Post Jr., MD Chest X-Ray 05/24/17 0000 Signed Impressions: Service Date/Time: April 09:34 - CONCLUSION: 1. Endotracheal tube tip now lies approximately 6.6 cm above the claudette. 2. Improved aeration with consolidation again noted in both lungs right greater than left. Eduardo Porter MD Abdomen X-Ray 05/23/17 0000 Signed Impressions: Service Date/Time: Tuesday, May 23, 2017 10:50 - CONCLUSION: No dilated loops of bowel. No significant stool burden. Sj Post Jr., MD Cerebral Arteriogram 05/21/17 0600 Signed Impressions: Service Date/Time: Sunday, May 21, 2017 09:48 - CONCLUSION: 1. Four-vessel selective angiography was performed with cross compression views. No discrete aneurysm was identified. Due to the extensive amount of hemorrhage on the patient's CT scan I would recommend this patient undergo either followup CT angiography or followup conventional angiography for further assessment. Hipolito Mccollum MD Head CT 05/20/17 06 Signed Impressions: Service Date/Time: Saturday, May 20, 2017 04:06 - CONCLUSION: 1. Slight interval increase in intraventricular hemorrhage compared to the prior study. The occipital horns are slightly more prominent as well. 2. The subarachnoid hemorrhage is not significantly changed. Eduardo Porter MD Neck CTA 05/19/17 0000 Signed Impressions: Service Date/Time: Friday, May 19, 2017 16:49 - CONCLUSION: Negative CTA. No focal areas of stenosis seen. Sj Carver MD Objective Remarks GENERAL: 62-year-old male, sitting in bed. SKIN: Warm and dry. No rash HEAD: right ventriculostomy currently clamped. EYES: Pupils equal and round around 2-3 mm and slightly reactive. No scleral icterus. No injection or drainage. ENT: No nasal bleeding or discharge. Mucous membranes pink and moist. room air. NECK: Trachea midline. No JVD. CARDIOVASCULAR: normal rate, regular rhythm. RESPIRATORY: room air. unlabored. equal chest rise. GASTROINTESTINAL: Abdomen soft, non-tender, nondistended. MUSCULOSKELETAL: Extremities without significant peripheral edema. No obvious deformities. NEUROLOGICAL: Cranial nerves II through XII appear grossly intact. FC x 4. no neuro deficits. JHON 5/5 in all extremities. A/P Assessment and Plan Assessment: 62yM s/p non-traumatic SAH. clinically improving. EVD clamped. can ambulate with assistance. need improved sleep/wake cycle. change to Rocephin for total 7 day course for e. coli CAUTI. remain in ICU. NEURO/PSYCH: Subarachnoid hemorrhage [place]us CT brain 05/19 revealed open infratentorial subarachnoid hemorrhage Subarachnoid blood in the sylvian fissures, anterior hemispheric fissure, brainstem and pre-pontine region CT angiogram head and neck revealed no acute aneurysm Repeat CT brain 05/20 revealed no further hemorrhage but now has developed moderate hydrocephalus with some intraventricular hemorrhage in the occipital horn Cerebral angiography 05/21 revealed no signs of vasospasm or aneurysm CTA brain no vasospasm 05/24 Dr. Jeronimo/neurosurgery placed ICP monitor. EVD management per nsgy. currently challenging drain. s/p 7 days keppra ppx 05/19 - 05/25. nimodipine 60 mg by mouth every 4 hours Goal systolic blood pressure less than 140 Transcranial Dopplers daily. - still no evidence of vasospasm. EEG 05/21 reveals moderate encephalopathy no epileptic activity continue frequent neuro checks, can transition to q4h neuro checks overnight. continue daily TCDs. melatonin for sleep. Respiratory: Acute hypoxic and hypercarbic respiratory failure - resolved. extubated 05/25. wean o2 for goal spo2 > 90% continue prn nebs aggressive pulmonary toilet. PT consult Cardiovascular Hypotension - resolved. h/o Hypertension SL ivf. - off vasopressors. GI/liver Dysphagia Hypoalbuminemia intravascular volume overload - resolved. speech following for swallow eval and dysphagia. Docusate sodium/senna twice a day for bowel regimen. Add polyethylene glycol and lactulose twice daily. HEME Normocytic anemia Thrombocytopenia - resolved. Monitor CBC daily. Follow trends Does not meet transfusion threshold at this time : voiding. ID: New fever Leukocytosis CAUTI- e. coli - d/c vanc, cefepime - start Rocephin 1gm iv q24h for total 7 day course of abx. RENAL: Creatinine currently within normal limits Monitor urine output Accurate I's and O's FEN: Hyperchloremia Replace electrolytes as clinically indicated per ICU electrolyte protocol DVT GI prophylaxis - Teds SCDs - No pharmacological DVT prophylaxis due to acute ICH -Famotidine for GI prophylaxis Dispo: remain in ICU. Min Wang MD May 29, 2017 14:46
[2017-05-29] MEDS: cefTRIAXone INJ 1,000 MG in SODIUM CHLORIDE 0.9% INJ 100 ML IV SCH (14:47)
[2017-05-29] MEDS: ACETAMINOPHEN 650 MG/20.3 ML UDC NG PRN (20:58)
[2017-05-29] MEDS: MELATONIN 5 MG TAB PO SCH (21:00)
[2017-05-29] MEDS ORDERED: OLANZapine ODT 5 MG TAB PO PRN (23:00)
[2017-05-30] VITALS (12 sets, daily range): BP systolic 141–172; BP diastolic 69–79; PULSE 7–94; RESP 13–20; TEMP 82–100.3; O2SAT 92–97
[2017-05-30] MEDS: hydrALAZINE HCL 20 MG/ML VIAL IV PRN ×5 (00:09→18:08)
[2017-05-30] MEDS: CHLORHEXIDINE GLUCONATE 2 % 1 PACK (2 CLOTHS) TOP SCH (01:36)
[2017-05-30] MEDS: niMODipine 30 MG CAP PO SCH ×6 (02:12→22:05)
[2017-05-30] MEDS: LABETALOL HCL 100 MG/20 ML VIAL IV PUSH PRN ×4 (03:45→21:05)
[2017-05-30] MEDS: ACETAMINOPHEN/HYDROcodone 325 MG/10 MG TAB PO PRN ×2 (04:10→15:51)
[2017-05-30] MEDS: chlorproMAZINE HCL 25 MG TAB PO SCH ×3 (05:17→21:23)
[2017-05-30] MEDS: INSULIN NovoLIN REGULAR SUPPLEMENTAL SCALE SQ SCH (05:32)
[2017-05-30] MEDS: ARTIFICIAL TEARS OPTH SOLN 15 ML BTL EACH EYE SCH ×3 (05:49→22:00)
[2017-05-30 07:13] LABS: MEAN CELL VOLUME 92.7 FL (80.0-100.0); MEAN CORPUSCULAR HEMOGLOBIN 30.7 PG (27.0-34.0); MEAN CORPUSCULAR HGB CONC 33.2 % (32.0-36.0); PLATELET COUNT 223 TH/MM3 (150-450); RED CELL DISTRIBUTION WIDTH 13.9 % (11.6-17.2); REVIEW FLAG FINAL
[2017-05-30 07:22] LABS: BICARBONATE 24.1 MEQ/L (21.0-32.0); POTASSIUM 3.3 MEQ/L (3.5-5.1)
[2017-05-30] MEDS: POLYETHYLENE GLYCOL 17 GM PKG NG SCH ×2 (09:00→19:42)
[2017-05-30] MEDS: DOCUSATE SODIUM 50 MG/SENNA 8.6 MG TAB PO SCH ×2 (09:00→19:42)
[2017-05-30] MEDS: LACTULOSE SYRUP 20 GM/30 ML CUP PO SCH ×2 (09:00→19:42)
[2017-05-30] MEDS: FAMOTIDINE 20 MG TAB NG SCH ×2 (09:19→22:05)
[2017-05-30] MEDS: SODIUM CHLORIDE 0.9% FLUSH 10 ML FLUSH IV FLUSH SCH ×2 (09:20→21:00)
--- NOTE | 2017-05-30 09:37 | HHI.NSPN ---
(Dillon Cross) History Chief Complaint: Diffuse SAH. (Dillon Cross) Interval History A 62-year-old gentleman who was brought to [facility] emergency room after presenting with A sudden onset of severe headache. Apparently, HE was hanging a large [place] tree and had to strain a lot and then subsequently noticed this headache which is bifrontal. He has also had some nausea and small bouts of vomiting, especially when he is moved from the stretcher to the CT scanner as well as the moment up to the intensive care unit. He denies any numbness or paresthesias in the upper or lower extremities or any double vision or blurred vision. CT scan of the head obtained reveals extensive subarachnoid hemorrhage involving the prepontine cistern, basal cisterns, suprasellar cistern, interhemispheric fissure and bilateral sylvian fissure. There is mild hydrocephalus with dilation of temporal horns noted also. Subsequent CT angiogram of the brain was obtained which does not reveal any underlying aneurysm. CTA of the neck is also negative. 05/20/17: Pt sedated on Diprivan. Pupils 2mm bilaterally, slight brisk reaction bilaterally. Ventriculostomy drain placed this morning by Dr. Jeronimo. ICPs 11. 05/21/17: Pt sedated on Diprivan and Fentanyl. Intubated. Pupils 2mm bilaterally reactive bilaterally. Ventriculostomy drain in place with blood tinged CSF at 10cm H2O. ICP 6-8. 05/22/17: Pt sedated on Diprivan and Fentanyl drips. Intubated. Ventriculostomy drain in place at [id number] with bloody CSF drainage. ICP 8-10 05/23/17: Pt sedated on Diprivan and Fentanyl drips weaning dose. Intubated. Ventriculostomy drain in place at [id number] with bloody CSF drainage. ICP 5-10 range with good waveform. 05/24/17: Pt sedated on Diprivan and Fentanyl drips. Held for few minutes and pt becomes very agitated. Moves all 4 extremities but not following commands secondary to agitation. 05/25/17: Pt sedated on low dose Fentanyl and Precedex drips for agitation during the weaning process. Pt opens eyes. Follows some simple commands. Intubated on CPAP currently. 05/28/17: Pt awake, lethargic but interacts. Denies headache, nausea, vomiting , or paresthesias. Pt motivated to leave hospital but understands needs to cooperate with plan. 05/29/17: Pt awake and more alert. Denies headache. Some periods of nausea last was yesterday. No paresthesias. Ventric in place at [id number]. [id number]. 05/30/17: Pt awaken and alert. Denies headache currently. Pt with periods of confusion last night. Also had episode of hypertension requiring treatment per report and ICP increased and drain was opened and ICP they decreased. Ventriculostomy drain again clamped this morning and ICP 7-12 range. (Dillon Cross) Review of Systems General: Negative for: fever, chills, insomnia Respiratory: Negative for: shortness of breath, cough, sputum Cardiovascular: Negative for: chest pain Gastrointestinal: Negative for: nausea, vomitting, diarrhea, constipation ( Dillon Cross) Exam Results Vital Signs Date Time Temp Pulse Resp B/P (MAP) Pulse Ox O2 Delivery O2 Flow Rate FiO2 05/30/17 06:00 74 05/30/17 04:00 99.5 20 149/79 (102) 95 05/29/17 20:28 21 05/29/17 19:00 Room Air 05/28/17 10:20 10.00 Intake and Output 05/30/17 05/30/17 05/31/17 08:00 16:00 00:00 Intake Total 200 ml Output Total 593 ml Balance -393 ml (Dillon Cross SRidge PA) Physical Examination General: Pt resting in bed more alert interacting and asking questions with stable vital signs. Eyes: Pupils equal 3mm bilaterally reactive bilaterally. Sclera anicteric. Resp: CTA bilaterally. Heart: NSR no murmurs Abd: Soft positive bs Skin: No cyanosis or erythema. SCDs in place. Muscle: Moves all 4 extremities well. Neuro: Pt awake and more alert. Pupils 3mm bilaterally reactive bilaterally. Speech with some periods of confusion but clear. Follows commands well. Ventriculostomy in place at [id number] and clamped. ICP 7-12. (Dillon Cross) Lab, Micro, Other Results Last Impressions Transcranial Doppler Study Complete 05/29/17 1000 Signed Impressions: Service Date/Time: Monday, May 29, 2017 08:39 - CONCLUSION: 1. No evidence of vasospasm Thomas Siu MD Chest X-Ray 05/27/17 0000 Signed Impressions: Service Date/Time: Saturday, May 27, 2017 08:52 - CONCLUSION: Persistent bibasilar consolidation. Dillon Spring MD Head CTA 05/24/17 0000 Signed Impressions: Service Date/Time: April 10:33 - CONCLUSION: No aneurysm or vasospasm. Sj Post Jr., MD Abdomen X-Ray 05/23/17 0000 Signed Impressions: Service Date/Time: Tuesday, May 23, 2017 10:50 - CONCLUSION: No dilated loops of bowel. No significant stool burden. Sj Post Jr., MD Cerebral Arteriogram 05/21/17 0600 Signed Impressions: Service Date/Time: Sunday, May 21, 2017 09:48 - CONCLUSION: 1. Four-vessel selective angiography was performed with cross compression views. No discrete aneurysm was identified. Due to the extensive amount of hemorrhage on the patient's CT scan I would recommend this patient undergo either followup CT angiography or followup conventional angiography for further assessment. Hipolito Mccollum MD Head CT 05/20/17 0600 Signed Impressions: Service Date/Time: Saturday, May 20, 2017 04:06 - CONCLUSION: 1. Slight interval increase in intraventricular hemorrhage compared to the prior study. The occipital horns are slightly more prominent as well. 2. The subarachnoid hemorrhage is not significantly changed. Eduardo Porter MD Neck CTA 05/19/17 0000 Signed Impressions: Service Date/Time: Friday, May 19, 2017 16:49 - CONCLUSION: Negative CTA. No focal areas of stenosis seen. Sj Carver MD Laboratory Tests Test 05/30/17 05:56 White Blood Count 11.0 TH/MM3 Red Blood Count 4.10 MIL/MM3 Hemoglobin 12.6 GM/DL Hematocrit 38.0 % Mean Corpuscular Volume 92.7 FL Mean Corpuscular Hemoglobin 30.7 PG Mean Corpuscular Hemoglobin Concent 33.2 % Red Cell Distribution Width 13.9 % Platelet Count 223 TH/MM3 Mean Platelet Volume 7.6 FL Blood Urea Nitrogen 24 MG/DL Creatinine 0.65 MG/DL Random Glucose 128 MG/DL Calcium Level 8.2 MG/DL Sodium Level 142 MEQ/L Potassium Level 3.3 MEQ/L Chloride Level 109 MEQ/L Carbon Dioxide Level 24.1 MEQ/L Anion Gap 9 MEQ/L Estimat Glomerular Filtration Rate 125 ML/MIN (Dillon Cross) Medical Decision Making Impression and Plan A: 1. Diffuse subarachnoid hemorrhage without any underlying aneurysm on CT angiogram of the brain. Follow up CTA on 05/21 again reveals no aneurysm or cause. Follow up CTAs of the brain have not revealed any aneurysm or vasospasm. 2. Mild early hydrocephalus. s/p ventriculostomy placement on 05/20 PLAN Continue with close neuro checks Continue with ICP monitoring and treatment, Challenge ventric, currently at 20 and clamped. Required opening drain last night for elevated ICP and subsequently this decreased. Continue with SCDs for DVT prophylaxis Continue with keppra for seizure prophylaxis Continue with Nimotop for vasospasm prophylaxis. Updated pt at bedside. Discussed treatment plan with RN. (Dillon Cross) Attending Statement The exam, history, and the medical decision-making described in the above note were completed with the assistance of the mid-level provider. I reviewed and agree with the findings presented. I attest that I had a [id number] encounter with the patient on the same day, and personally performed and documented my assessment and findings in the medical record. Sitting up in a chair eating with a hoarse voice. Relates mild headache. According to his he gets more agitated and restless at night time and required temporary opening of his ventriculostomy. Currently ventriculostomy was clamped with normal ICPs. We will obtain a follow-up CT scan of the head tomorrow morning to rule out any involvement of hydrocephalus with the ventriculostomy clamping. Updated family at bedside. (Franky Jeronimo MD) Dillon Cross May 30, 2017 09:37 Franky Jeronimo MD May 30, 2017 15:56
--- NOTE | 2017-05-30 10:38 | HHI.CCPN ---
Subjective Remarks/Hospital Course 05/19: 62-year-old male with no significant past medical history, presents here with sudden onset headache. Patient states he was pushing up a heavy [place] tree when he had a sudden onset of bifrontal and top of his head pain. He has never experienced similar pain before. He did not pass out. He did not fell off the ladder. He reports the pain as sharp and severe. He denies any weakness of his extremities. He denies any neck pain. The patient is currently taking no medications. He has no family history of headaches or subarachnoid bleed. The CT of the head revealed extensive subarachnoid bleed supratentorial and infratentorial. Head and neck CTA both negative for aneurysm. 05/20: Patient reintubated for worsening neurologic status this morning and placed on mechanical ventilation. Neurosurgery placed a ventriculostomy. When I evaluated the patient he was sedated with propofol, orally intubated on mechanical ventilation. He had just been started on Levophed to maintain CPP. 05/21: Afebrile. Patient remains bradycardic. Currently sedated with propofol along with fentanyl drips. Tolerating tube feeding. No bowel movement. Currently not following commands but on sedation. Plan for formal cerebral arteriogram today 05/22: Afebrile. Noted negative results from's formal cerebral arteriogram yesterday. EEG revealed moderate encephalopathy however no signs of acute epileptiform activity. Tube feeds currently off with residuals around 200 cc. No bowel movement since admission. 05/23: Episode of singultus overnight after respiratory therapy. Did resolved with vagal maneuver yesterday. No bowel movement. Tube feeds currently at 40 cc an hour. 05/24: Currently on dexmedetomidine for PSV trial. Per minute singultus. Transcanal Doppler/CTA brain revealed no acute vasospasm today 05/24. Tolerating tube feeds. Positive BM. 05/25: extubated this AM after passing SBT. however, this afternoon now on NRB. still following commands. TCDs from today pending. no other changes. denies complaints. ROS negative. 05/26: doing well, on NC o2. diuresed well yesterday. TCDs negative for vasospasm. clinical exam stable. ROS negative. had some headache with challenging of EVD yesterday, EVD lowered to 5 today. 05/27: in more respiratory distress this morning. subjectively feels worse, although he cannot completely describe any specific symptoms. says "he feels like he cannot move", but strength is equal and at baseline. wbc elevated and new fever today. flores cultures sent, vanc/cefepime started. cxr and u/a ordered. TCDs continue to be negative. 05/28: clinically much better than before. slightly CAM+ today. urine culture growing GNR. back to simple mask o2 and not in distress. TCDs negative. 05/29: continues to improve. CAM - this morning. urine growing e-coli. TCDs negative. EVD clamped. Subjective 05/30: doing well. EVD had to be reopened last night for hypertension and somnolence. otherwise, TCDs remain negative. patient denies complaints. Objective Vital Signs Date Time Temp Pulse Resp B/P (MAP) Pulse Ox O2 Delivery O2 Flow Rate FiO2 05/30/17 06:00 74 05/30/17 04:00 99.5 20 149/79 (102) 95 05/29/17 20:28 21 05/29/17 19:00 Room Air 05/28/17 10:20 10.00 Intake and Output 05/30/17 05/30/17 05/30/17 07:59 15:59 23:59 Intake Total 200 ml Output Total 593 ml Balance -393 ml Result Diagram: 05/30/17 0556 05/30/17 0556 Other Results Microbiology Date/Time Source Procedure Growth Status 05/27/17 11:52 Urine Catheterized Urine Urine Culture - Final Escherichia Coli Complete Imaging Last Impressions Transcranial Doppler Study Complete 05/24/17 0600 Signed Impressions: Service Date/Time: April 08:45 - CONCLUSION: No vasospasm. Sj Post Jr., MD Head CTA 05/24/17 0000 Signed Impressions: Service Date/Time: April 10:33 - CONCLUSION: No aneurysm or vasospasm. Sj Post Jr., MD Chest X-Ray 05/24/17 0000 Signed Impressions: Service Date/Time: April 09:34 - CONCLUSION: 1. Endotracheal tube tip now lies approximately 6.6 cm above the claudette. 2. Improved aeration with consolidation again noted in both lungs right greater than left. Eduardo Porter MD Abdomen X-Ray 05/23/17 0000 Signed Impressions: Service Date/Time: Tuesday, May 23, 2017 10:50 - CONCLUSION: No dilated loops of bowel. No significant stool burden. Sj Post Jr., MD Cerebral Arteriogram 05/21/17 0600 Signed Impressions: Service Date/Time: Sunday, May 21, 2017 09:48 - CONCLUSION: 1. Four-vessel selective angiography was performed with cross compression views. No discrete aneurysm was identified. Due to the extensive amount of hemorrhage on the patient's CT scan I would recommend this patient undergo either followup CT angiography or followup conventional angiography for further assessment. Hipolito Mccollum MD Head CT 05/20/17 06 Signed Impressions: Service Date/Time: Saturday, May 20, 2017 04:06 - CONCLUSION: 1. Slight interval increase in intraventricular hemorrhage compared to the prior study. The occipital horns are slightly more prominent as well. 2. The subarachnoid hemorrhage is not significantly changed. Eduardo Porter MD Neck CTA 05/19/17 0000 Signed Impressions: Service Date/Time: Friday, May 19, 2017 16:49 - CONCLUSION: Negative CTA. No focal areas of stenosis seen. Sj Carver MD Objective Remarks GENERAL: 62-year-old male, sitting in bed. SKIN: Warm and dry. No rash HEAD: right ventriculostomy currently clamped. EYES: Pupils equal and round around 2-3 mm and slightly reactive. No scleral icterus. No injection or drainage. ENT: No nasal bleeding or discharge. Mucous membranes pink and moist. room air. NECK: Trachea midline. No JVD. CARDIOVASCULAR: normal rate, regular rhythm. RESPIRATORY: room air. unlabored. equal chest rise. GASTROINTESTINAL: Abdomen soft, non-tender, nondistended. MUSCULOSKELETAL: Extremities without significant peripheral edema. No obvious deformities. NEUROLOGICAL: Cranial nerves II through XII appear grossly intact. FC x 4. no neuro deficits. JHON 5/5 in all extremities. A/P Assessment and Plan Assessment: 62yM s/p non-traumatic SAH. clinically improving. EVD reopened overnight. continue observation in ICU given EVD. NEURO/PSYCH: Subarachnoid hemorrhage Singultus CT brain 05/19 revealed open infratentorial subarachnoid hemorrhage Subarachnoid blood in the sylvian fissures, anterior hemispheric fissure, brainstem and pre-pontine region CT angiogram head and neck revealed no acute aneurysm Repeat CT brain 05/20 revealed no further hemorrhage but now has developed moderate hydrocephalus with some intraventricular hemorrhage in the occipital horn Cerebral angiography 05/21 revealed no signs of vasospasm or aneurysm CTA brain no vasospasm 05/24 Dr. Jeronimo/neurosurgery placed ICP monitor. EVD management per nsgy. may require VPS. s/p 7 days keppra ppx 05/19 - 05/25. nimodipine 60 mg by mouth every 4 hours Goal systolic blood pressure less than 140 Transcranial Dopplers daily. - still no evidence of vasospasm. EEG 05/21 reveals moderate encephalopathy no epileptic activity continue frequent neuro checks, can transition to q4h neuro checks overnight. continue daily TCDs. melatonin for sleep. Respiratory: Acute hypoxic and hypercarbic respiratory failure - resolved. extubated 05/25. wean o2 for goal spo2 > 90% continue prn nebs aggressive pulmonary toilet. PT consult Cardiovascular Hypotension - resolved. h/o Hypertension SL ivf. - off vasopressors. GI/liver Dysphagia Hypoalbuminemia intravascular volume overload - resolved. speech following for swallow eval and dysphagia. order speech cog eval as well. Docusate sodium/senna twice a day for bowel regimen. Add polyethylene glycol and lactulose twice daily. HEME Normocytic anemia Thrombocytopenia - resolved. Monitor CBC daily. Follow trends Does not meet transfusion threshold at this time : voiding. ID: New fever Leukocytosis CAUTI- e. coli - Rocephin 1gm iv q24h for total 7 day course of abx. RENAL: Creatinine currently within normal limits Monitor urine output Accurate I's and O's FEN: Hyperchloremia Replace electrolytes as clinically indicated per ICU electrolyte protocol DVT GI prophylaxis - Teds SCDs - No pharmacological DVT prophylaxis due to acute ICH -Famotidine for GI prophylaxis Dispo: remain in ICU. Min Wang MD May 30, 2017 10:38
[2017-05-30] MEDS ORDERED: PHARMACY ORDERED LAB ONE (10:45)
--- NOTE | 2017-05-30 11:02 | RADRPT ---
EXAM DATE/TIME: 05/30/2017 08:57 [facility] COMPARISON: US TRANSCRANIAL DOPPLER COMPLETE, May 29, 2017, 8:39. INDICATIONS : Subarachnoid hemorrhage. MEDICAL HISTORY : Subarachnoid hemorrhage. Headache. SURGICAL HISTORY : Ventriculostomy placement. Vasectomy. ENCOUNTER: [facility] ACUITY: 1 week PAIN SCORE: 2/10 LOCATION: Bilateral cranial Current Exam: May 30, 2017 [place] Ratio: Right: 2.6 Left: 3.3 [place] Ratio: Right: 2.8 Left: 2.5 Previous Exam: May 29, 2017 [place] Ratio: Right: 2.4 Left: 2.9 [place] Ratio: Right: 2.4 Left: 2.6 FINDINGS: Examination performed at bedside. Real-time ultrasound with the assistance of color and spectral Dop pler was utilized to evaluate the intracerebral circulation. Time-averaged maximal velocities are ca lculated in cm/s. There is slight elevation of the ratios involving the left middle cerebral artery compared to the nahid or study which may indicate mild vasospasm. CONCLUSION: 1. Mild vasospasm involving the left middle cerebral artery Thomas Siu MD on May 30, 2017 at 10:53 Board Certified Radiologist. This report was verified electronically.
[2017-05-30] MEDS: cefTRIAXone INJ 1,000 MG in SODIUM CHLORIDE 0.9% INJ 100 ML IV SCH (14:50)
[2017-05-30] MEDS: MELATONIN 5 MG TAB PO SCH (22:05)
[2017-05-31] VITALS (15 sets, daily range): BP systolic 140–160; BP diastolic 63–75; PULSE 9–97; RESP 16–20; TEMP 98.5–100.3; O2SAT 93–97
[2017-05-31] MEDS: LABETALOL HCL 100 MG/20 ML VIAL IV PUSH PRN ×3 (00:29→18:20)
[2017-05-31] MEDS: niMODipine 30 MG CAP PO SCH ×6 (02:05→22:00)
[2017-05-31] MEDS: hydrALAZINE HCL 20 MG/ML VIAL IV PRN ×2 (02:16→05:52)
[2017-05-31] MEDS: CHLORHEXIDINE GLUCONATE 2 % 1 PACK (2 CLOTHS) TOP SCH (03:31)
[2017-05-31] MEDS: chlorproMAZINE HCL 25 MG TAB PO SCH ×3 (03:32→22:00)
[2017-05-31] MEDS: ARTIFICIAL TEARS OPTH SOLN 15 ML BTL EACH EYE SCH ×3 (05:13→22:00)
[2017-05-31 05:49] LABS: HEMATOCRIT 35.7 % (39.0-51.0); MEAN CELL VOLUME 90.7 FL (80.0-100.0); MEAN CORPUSCULAR HEMOGLOBIN 30.9 PG (27.0-34.0); MEAN CORPUSCULAR HGB CONC 34.1 % (32.0-36.0); PLATELET COUNT 263 TH/MM3 (150-450); RED BLOOD COUNT 3.94 MIL/MM3 (4.50-5.90); RED CELL DISTRIBUTION WIDTH 13.8 % (11.6-17.2); REVIEW FLAG FINAL; WHITE BLOOD COUNT 9.4 TH/MM3 (4.0-11.0)
--- NOTE | 2017-05-31 05:59 | RADRPT ---
EXAM DATE/TIME: 05/31/2017 04:32 [facility] COMPARISON: CT BRAIN W/O CONTRAST, May 20, 2017, 4:06. INDICATIONS : Cephalgia; followup intracranial hemorrhage.. RADIATION DOSE: 56.35 CTDIvol (mGy) MEDICAL HISTORY : Cardiovascular disease. SURGICAL HISTORY : None. ENCOUNTER: Initial ACUITY: 1 day PAIN SCALE: Non-responsive LOCATION: cranial TECHNIQUE: Multiple contiguous axial images were obtained of the head. Using automated exposure control and adj ustment of the mA and/or kV according to patient size, radiation dose was kept as low as reasonably a chievable to obtain optimal diagnostic quality images. DICOM format image data is available electro nically for review and comparison. FINDINGS: There has been an interval resolution of the previously noted subarachnoid and intraventricular hemorrhage with no distinct residual remaining. There is no mass effect or midline shift. There has b een interval placement of a shunt catheter with the tip in the anterior horn of the right lateral liliana tricle via a right frontal approach. There is no new hemorrhage, mass effect or midline shift. The ve ntricles have decreased in size and are now within normal limits. The posterior fossa and brainstem r emain unremarkable. Bone windows are within normal limits. CONCLUSION: 1. Interval resolution of subarachnoid and intraventricular hemorrhage. 2. Interval placement of ventricular shunt catheter with decrease in hydrocephalus. The ventricular s ystem is now within normal limits. 3. No new hemorrhage or mass effect. Eduardo Porter MD on May 31, 2017 at 5:55 Board Certified Radiologist. This report was verified electronically.
[2017-05-31 06:06] LABS: BICARBONATE 25.3 MEQ/L (21.0-32.0)
--- NOTE | 2017-05-31 08:35 | HHI.CCPN ---
Subjective Remarks/Hospital Course 05/19: 62-year-old male with no significant past medical history, presents here with sudden onset headache. Patient states he was pushing up a heavy [place] tree when he had a sudden onset of bifrontal and top of his head pain. He has never experienced similar pain before. He did not pass out. He did not fell off the ladder. He reports the pain as sharp and severe. He denies any weakness of his extremities. He denies any neck pain. The patient is currently taking no medications. He has no family history of headaches or subarachnoid bleed. The CT of the head revealed extensive subarachnoid bleed supratentorial and infratentorial. Head and neck CTA both negative for aneurysm. 05/20: Patient reintubated for worsening neurologic status this morning and placed on mechanical ventilation. Neurosurgery placed a ventriculostomy. When I evaluated the patient he was sedated with propofol, orally intubated on mechanical ventilation. He had just been started on Levophed to maintain CPP. 05/21: Afebrile. Patient remains bradycardic. Currently sedated with propofol along with fentanyl drips. Tolerating tube feeding. No bowel movement. Currently not following commands but on sedation. Plan for formal cerebral arteriogram today 05/22: Afebrile. Noted negative results from's formal cerebral arteriogram yesterday. EEG revealed moderate encephalopathy however no signs of acute epileptiform activity. Tube feeds currently off with residuals around 200 cc. No bowel movement since admission. 05/23: Episode of singultus overnight after respiratory therapy. Did resolved with vagal maneuver yesterday. No bowel movement. Tube feeds currently at 40 cc an hour. 05/24: Currently on dexmedetomidine for PSV trial. Per minute singultus. Transcanal Doppler/CTA brain revealed no acute vasospasm today 05/24. Tolerating tube feeds. Positive BM. 05/25: extubated this AM after passing SBT. however, this afternoon now on NRB. still following commands. TCDs from today pending. no other changes. denies complaints. ROS negative. 05/26: doing well, on NC o2. diuresed well yesterday. TCDs negative for vasospasm. clinical exam stable. ROS negative. had some headache with challenging of EVD yesterday, EVD lowered to 5 today. 05/27: in more respiratory distress this morning. subjectively feels worse, although he cannot completely describe any specific symptoms. says "he feels like he cannot move", but strength is equal and at baseline. wbc elevated and new fever today. flores cultures sent, vanc/cefepime started. cxr and u/a ordered. TCDs continue to be negative. 05/28: clinically much better than before. slightly CAM+ today. urine culture growing GNR. back to simple mask o2 and not in distress. TCDs negative. 05/29: continues to improve. CAM - this morning. urine growing e-coli. TCDs negative. EVD clamped. Subjective 05/30: doing well. EVD had to be reopened last night for hypertension and somnolence. otherwise, TCDs remain negative. patient denies complaints. 05/31: EVD drained again last night due to ICP 20 - 29 range. Objective Vital Signs Date Time Temp Pulse Resp B/P (MAP) Pulse Ox O2 Delivery O2 Flow Rate FiO2 05/31/17 07:43 94 Room Air 05/31/17 06:00 71 05/31/17 04:00 100.0 16 148/64 (92) 05/30/17 20:00 21 05/28/17 10:20 10.00 Intake and Output 05/31/17 05/31/17 06/01/17 08:00 16:00 00:00 Intake Total 120 ml Output Total 400 ml Balance -280 ml Result Diagram: 05/31/17 0525 05/31/17 0525 Imaging Last Impressions Transcranial Doppler Study Complete 05/24/17 0600 Signed Impressions: Service Date/Time: April 08:45 - CONCLUSION: No vasospasm. Sj Post Jr., MD Head CTA 05/24/17 0000 Signed Impressions: Service Date/Time: April 10:33 - CONCLUSION: No aneurysm or vasospasm. Sj Post Jr., MD Chest X-Ray 05/24/17 0000 Signed Impressions: Service Date/Time: April 09:34 - CONCLUSION: 1. Endotracheal tube tip now lies approximately 6.6 cm above the claudette. 2. Improved aeration with consolidation again noted in both lungs right greater than left. Eduardo Porter MD Abdomen X-Ray 05/23/17 0000 Signed Impressions: Service Date/Time: Tuesday, May 23, 2017 10:50 - CONCLUSION: No dilated loops of bowel. No significant stool burden. Sj Post Jr., MD Cerebral Arteriogram 05/21/17599 Signed Impressions: Service Date/Time: Sunday, May 21, 2017 09:48 - CONCLUSION: 1. Four-vessel selective angiography was performed with cross compression views. No discrete aneurysm was identified. Due to the extensive amount of hemorrhage on the patient's CT scan I would recommend this patient undergo either followup CT angiography or followup conventional angiography for further assessment. Hipolito Mccollum MD Head CT 05/20/17599 Signed Impressions: Service Date/Time: Saturday, May 20, 2017 04:06 - CONCLUSION: 1. Slight interval increase in intraventricular hemorrhage compared to the prior study. The occipital horns are slightly more prominent as well. 2. The subarachnoid hemorrhage is not significantly changed. Eduardo Porter MD Neck CTA 05/19/17 0000 Signed Impressions: Service Date/Time: Friday, May 19, 2017 16:49 - CONCLUSION: Negative CTA. No focal areas of stenosis seen. Sj Carver MD Objective Remarks GENERAL: 62-year-old male, sitting in bed. SKIN: Warm and dry. No rash HEAD: right ventriculostomy currently unclamped. EYES: Pupils equal and round around 2-3 mm and slightly reactive. No conjunctival icterus. No injection or drainage. ENT: No nasal bleeding or discharge. Mucous membranes pink and moist. NECK: Trachea midline. Airway widely patent. CARDIOVASCULAR: normal rate, regular rhythm. RESPIRATORY: room air. unlabored. equal chest rise. clear, no adventitious sounds. GASTROINTESTINAL: Abdomen soft, non-tender, nondistended. MUSCULOSKELETAL: Extremities without significant peripheral edema. No obvious deformities. NEUROLOGICAL: Cranial nerves II through XII appear grossly intact. FC x 4. no neuro deficits. JHON 5/5 in all extremities. A/P Assessment and Plan Assessment: 62yM s/p non-traumatic SAH. clinically improving. EVD reopened overnight. continue observation in ICU given EVD. NEURO/PSYCH: Subarachnoid hemorrhage Singultus CT brain 05/19 revealed open infratentorial subarachnoid hemorrhage Subarachnoid blood in the sylvian fissures, anterior hemispheric fissure, brainstem and pre-pontine region CT angiogram head and neck revealed no acute aneurysm Repeat CT brain 05/20 revealed no further hemorrhage but now has developed moderate hydrocephalus with some intraventricular hemorrhage in the occipital horn Cerebral angiography 05/21 revealed no signs of vasospasm or aneurysm CTA brain no vasospasm 05/24 Dr. Jeronimo/neurosurgery placed ICP monitor. EVD management per nsgy. may require VPS. s/p 7 days keppra ppx 05/19 - 05/25. nimodipine 60 mg by mouth every 4 hours Goal systolic blood pressure less than 140 Transcranial Dopplers daily. - still no evidence of vasospasm. EEG 05/21 reveals moderate encephalopathy no epileptic activity continue frequent neuro checks, can transition to q4h neuro checks overnight. continue daily TCDs. melatonin for sleep. Respiratory: Acute hypoxic and hypercarbic respiratory failure - resolved. extubated 05/25. wean o2 for goal spo2 > 90% continue prn nebs aggressive pulmonary toilet. PT consult Cardiovascular Hypotension - resolved. h/o Hypertension SL ivf. - off vasopressors. GI/liver Dysphagia Hypoalbuminemia intravascular volume overload - resolved. speech following for swallow eval and dysphagia. order speech cog eval as well. Docusate sodium/senna twice a day for bowel regimen. Add polyethylene glycol and lactulose twice daily. HEME Normocytic anemia Thrombocytopenia - resolved. Monitor CBC daily. Follow trends Does not meet transfusion threshold at this time : voiding. ID: New fever Leukocytosis CAUTI- e. coli - Rocephin 1gm iv q24h for total 7 day course of abx. RENAL: Creatinine currently within normal limits Monitor urine output Accurate I's and O's FEN: Hyperchloremia Replace electrolytes as clinically indicated per ICU electrolyte protocol DVT GI prophylaxis - Teds SCDs - No pharmacological DVT prophylaxis due to acute ICH -Famotidine for GI prophylaxis Dispo: remain in ICU. Overall impression: Mild left MCA vasospasm yesterday. Remains alert. José Lopez MD May 31, 2017 08:35
[2017-05-31] MEDS: POLYETHYLENE GLYCOL 17 GM PKG NG SCH ×2 (09:00→21:00)
[2017-05-31] MEDS ORDERED: LIDOCAINE 2%/EPINEPHrine 1:100,000 30ML MDV INFIL ONE (09:00)
[2017-05-31] MEDS: LACTULOSE SYRUP 20 GM/30 ML CUP PO SCH ×2 (09:00→21:00)
--- NOTE | 2017-05-31 09:13 | HHI.NSPN ---
(Dillon Cross) History Chief Complaint: Diffuse SAH. (Dillon Cross) Interval History A 62-year-old gentleman who was brought to [facility] emergency room after presenting with A sudden onset of severe headache. Apparently, HE was hanging a large [place] tree and had to strain a lot and then subsequently noticed this headache which is bifrontal. He has also had some nausea and small bouts of vomiting, especially when he is moved from the stretcher to the CT scanner as well as the moment up to the intensive care unit. He denies any numbness or paresthesias in the upper or lower extremities or any double vision or blurred vision. CT scan of the head obtained reveals extensive subarachnoid hemorrhage involving the prepontine cistern, basal cisterns, suprasellar cistern, interhemispheric fissure and bilateral sylvian fissure. There is mild hydrocephalus with dilation of temporal horns noted also. Subsequent CT angiogram of the brain was obtained which does not reveal any underlying aneurysm. CTA of the neck is also negative. 05/20/17: Pt sedated on Diprivan. Pupils 2mm bilaterally, slight brisk reaction bilaterally. Ventriculostomy drain placed this morning by Dr. Jeronimo. ICPs 11. 05/21/17: Pt sedated on Diprivan and Fentanyl. Intubated. Pupils 2mm bilaterally reactive bilaterally. Ventriculostomy drain in place with blood tinged CSF at 10cm H2O. ICP 6-8. 05/22/17: Pt sedated on Diprivan and Fentanyl drips. Intubated. Ventriculostomy drain in place at [id number] with bloody CSF drainage. ICP 8-10 05/23/17: Pt sedated on Diprivan and Fentanyl drips weaning dose. Intubated. Ventriculostomy drain in place at [id number] with bloody CSF drainage. ICP 5-10 range with good waveform. 05/24/17: Pt sedated on Diprivan and Fentanyl drips. Held for few minutes and pt becomes very agitated. Moves all 4 extremities but not following commands secondary to agitation. 05/25/17: Pt sedated on low dose Fentanyl and Precedex drips for agitation during the weaning process. Pt opens eyes. Follows some simple commands. Intubated on CPAP currently. 05/28/17: Pt awake, lethargic but interacts. Denies headache, nausea, vomiting , or paresthesias. Pt motivated to leave hospital but understands needs to cooperate with plan. 05/29/17: Pt awake and more alert. Denies headache. Some periods of nausea last was yesterday. No paresthesias. Ventric in place at [id number]. [id number]. 05/30/17: Pt awaken and alert. Denies headache currently. Pt with periods of confusion last night. Also had episode of hypertension requiring treatment per report and ICP increased and drain was opened and ICP they decreased. Ventriculostomy drain again clamped this morning and ICP 7-12 range. 05/31/17: Pt awake and alert. Frontal headache but not severe. Ventriculostomy in place. Follow up CT improved without hydrocephalus. (Dillon Cross) Review of Systems General: Negative for: fever, chills, insomnia Respiratory: Negative for: shortness of breath, cough, sputum Cardiovascular: Negative for: chest pain Gastrointestinal: Negative for: nausea, vomitting, diarrhea, constipation ( Dillon Cross) Exam Results Vital Signs Date Time Temp Pulse Resp B/P (MAP) Pulse Ox O2 Delivery O2 Flow Rate FiO2 05/31/17 07:43 94 Room Air 05/31/17 06:00 71 05/31/17 04:00 100.0 16 148/64 (92) 05/30/17 20:00 21 05/28/17 10:20 10.00 Intake and Output 05/31/17 05/31/17 06/01/17 08:00 16:00 00:00 Intake Total 120 ml Output Total 400 ml Balance -280 ml (Dillon Cross) Physical Examination General: Pt resting in bed more alert interacting and asking questions with stable vital signs. Eyes: Pupils equal 3mm bilaterally reactive bilaterally. Sclera anicteric. Resp: CTA bilaterally. Heart: NSR no murmurs Abd: Soft positive bs Skin: No cyanosis or erythema. SCDs in place. Muscle: Moves all 4 extremities with 5/5 strength. Neuro: Pt awake and more alert. Pupils 3mm bilaterally reactive bilaterally. Speech with some periods of confusion but clear. Follows commands well. Ventriculostomy in place at [id number] ICP 15. (Dillon Cross) Lab, Micro, Other Results Last Impressions Head CT 05/31/17 0600 Signed Impressions: Service Date/Time: May 04:32 - CONCLUSION: 1. Interval resolution of subarachnoid and intraventricular hemorrhage. 2. Interval placement of ventricular shunt catheter with decrease in hydrocephalus. The ventricular system is now within normal limits. 3. No new hemorrhage or mass effect. Eduardo Porter MD Transcranial Doppler Study Complete 05/30/17 1000 Signed Impressions: Service Date/Time: Tuesday, May 30, 2017 08:57 - CONCLUSION: 1. Mild vasospasm involving the left middle cerebral artery Thomas Siu MD Chest X-Ray 05/27/17 0000 Signed Impressions: Service Date/Time: Saturday, May 27, 2017 08:52 - CONCLUSION: Persistent bibasilar consolidation. Dillon Spring MD Head CTA 05/24/17 0000 Signed Impressions: Service Date/Time: April 10:33 - CONCLUSION: No aneurysm or vasospasm. Sj Post Jr., MD Abdomen X-Ray 05/23/17 0000 Signed Impressions: Service Date/Time: Tuesday, May 23, 2017 10:50 - CONCLUSION: No dilated loops of bowel. No significant stool burden. Sj Post Jr., MD Cerebral Arteriogram 05/21/17 0600 Signed Impressions: Service Date/Time: Sunday, May 21, 2017 09:48 - CONCLUSION: 1. Four-vessel selective angiography was performed with cross compression views. No discrete aneurysm was identified. Due to the extensive amount of hemorrhage on the patient's CT scan I would recommend this patient undergo either followup CT angiography or followup conventional angiography for further assessment. Hipolito Mccollum MD Neck CTA 05/19/17 0000 Signed Impressions: Service Date/Time: Friday, May 19, 2017 16:49 - CONCLUSION: Negative CTA. No focal areas of stenosis seen. Sj Carver MD Laboratory Tests Test 05/31/17 05:25 White Blood Count 9.4 TH/MM3 Red Blood Count 3.94 MIL/MM3 Hemoglobin 12.2 GM/DL Hematocrit 35.7 % Mean Corpuscular Volume 90.7 FL Mean Corpuscular Hemoglobin 30.9 PG Mean Corpuscular Hemoglobin Concent 34.1 % Red Cell Distribution Width 13.8 % Platelet Count 263 TH/MM3 Mean Platelet Volume 7.1 FL Blood Urea Nitrogen 19 MG/DL Creatinine 0.66 MG/DL Random Glucose 127 MG/DL Calcium Level 7.8 MG/DL Sodium Level 140 MEQ/L Potassium Level 3.0 MEQ/L Chloride Level 106 MEQ/L Carbon Dioxide Level 25.3 MEQ/L Anion Gap 9 MEQ/L Estimat Glomerular Filtration Rate 123 ML/MIN (Dillon Cross) Medical Decision Making Impression and Plan A: 1. Diffuse subarachnoid hemorrhage without any underlying aneurysm on CT angiogram of the brain. Follow up CTA on 05/21 again reveals no aneurysm or cause. Follow up CTAs of the brain have not revealed any aneurysm or vasospasm. 2. Mild early hydrocephalus. s/p ventriculostomy placement on 05/20. Follow up CT 05/31 greatly improved with resolved SAH and without signs of hydrocephalus. PLAN Continue with close neuro checks Discontinue Ventriculostomy drain per Dr. Jeronimo. Continue with SCDs for DVT prophylaxis Continue with keppra for seizure prophylaxis Continue with Nimotop for vasospasm prophylaxis. Updated pt at bedside. Discussed treatment plan with RN. (Dillon Cross) Attending Statement The exam, history, and the medical decision-making described in the above note were completed with the assistance of the mid-level provider. I reviewed and agree with the findings presented. I attest that I had a [id number] encounter with the patient on the same day, and personally performed and documented my assessment and findings in the medical record. Relates much of headache which is intermittent. No nausea vomiting and tolerating diet. Ventriculostomy was removed this morning after clamping no hydrocephalus noted. We had a very lucid conversation with at bedside and he is doing well from a neurologic standpoint. No indications of vasospasm. Transfer to floor tomorrow if doing well and possible discharge over the weekend. (Franky Jeronimo MD) Dillon Cross May 31, 2017 09:13 Franky Jeronimo MD May 31, 2017 17:20
[2017-05-31] MEDS: SODIUM CHLORIDE 0.9% FLUSH 10 ML FLUSH IV FLUSH SCH ×2 (09:17→21:00)
[2017-05-31] MEDS: FAMOTIDINE 20 MG TAB NG SCH ×2 (09:17→21:59)
[2017-05-31] MEDS: DOCUSATE SODIUM 50 MG/SENNA 8.6 MG TAB PO SCH ×2 (09:18→21:00)
[2017-05-31] MEDS ORDERED: LIDOCAINE 2%/EPINEPHrine 1:100,000 20ML MDV OTHER ONE (10:45)
--- NOTE | 2017-05-31 10:46 | RADRPT ---
EXAM DATE/TIME: 05/31/2017 09:10 [place] COMPARISON: US TRANSCRANIAL DOPPLER COMPLETE, May 30, 2017, 8:57. INDICATIONS : Subarachnoid hemorrhage. MEDICAL HISTORY : Subarachnoid hemorrhage. Headache. SURGICAL HISTORY : Ventriculostomy placement. Vasectomy. ENCOUNTER: [facility]ela ACUITY: 1 week PAIN SCORE: 1/10 LOCATION: Bilateral cranial Current Exam: May 31, 2017 [place] Ratio: Right: 1.9 Left: 3.0 [place] Ratio: Right: 2.1 Left: 2.4 Previous Exam: May 30, 2017 [place] Ratio: Right: 2.6 Left: 3.3 [place] Ratio: Right: 2.8 Left: 2.5 FINDINGS: Examination performed at bedside. Real-time ultrasound with the assistance of color and spectral Dop pler was utilized to evaluate the intracerebral circulation. Time-averaged maximal velocities are ca lculated in cm/s. Mean flow velocities and ratios are within normal limits. CONCLUSION: There are no findings to indicate vasospasm. Kyree Gomez MD on May 31, 2017 at 10:40 Board Certified Radiologist. This report was verified electronically.
[2017-05-31] MEDS: cefTRIAXone INJ 1,000 MG in SODIUM CHLORIDE 0.9% INJ 100 ML IV SCH (13:37)
[2017-05-31] MEDS: MELATONIN 5 MG TAB PO SCH (22:00)
[2017-06-01] VITALS (10 sets, daily range): BP systolic 133–152; BP diastolic 65–71; PULSE 70–89; RESP 15–18; TEMP 98.4–99.2; O2SAT 96–98
[2017-06-01] MEDS: niMODipine 30 MG CAP PO SCH ×6 (02:06→21:27)
[2017-06-01] MEDS: CHLORHEXIDINE GLUCONATE 2 % 1 PACK (2 CLOTHS) TOP SCH ×2 (04:00→21:28)
[2017-06-01] MEDS: ARTIFICIAL TEARS OPTH SOLN 15 ML BTL EACH EYE SCH ×3 (05:19→21:27)
[2017-06-01] MEDS: chlorproMAZINE HCL 25 MG TAB PO SCH ×3 (05:19→20:18)
[2017-06-01 06:22] LABS: HEMATOCRIT 37.1 % (39.0-51.0); MEAN CELL VOLUME 91.1 FL (80.0-100.0); MEAN CORPUSCULAR HEMOGLOBIN 30.4 PG (27.0-34.0); MEAN CORPUSCULAR HGB CONC 33.4 % (32.0-36.0); PLATELET COUNT 316 TH/MM3 (150-450); RED BLOOD COUNT 4.08 MIL/MM3 (4.50-5.90); RED CELL DISTRIBUTION WIDTH 13.7 % (11.6-17.2); REVIEW FLAG FINAL; WHITE BLOOD COUNT 7.9 TH/MM3 (4.0-11.0)
[2017-06-01 06:51] LABS: BICARBONATE 25.2 MEQ/L (21.0-32.0); POTASSIUM 3.2 MEQ/L (3.5-5.1)
--- NOTE | 2017-06-01 07:49 | HHI.CCPN ---
Subjective Remarks/Hospital Course 05/19: 62-year-old male with no significant past medical history, presents here with sudden onset headache. Patient states he was pushing up a heavy [place] tree when he had a sudden onset of bifrontal and top of his head pain. He has never experienced similar pain before. He did not pass out. He did not fell off the ladder. He reports the pain as sharp and severe. He denies any weakness of his extremities. He denies any neck pain. The patient is currently taking no medications. He has no family history of headaches or subarachnoid bleed. The CT of the head revealed extensive subarachnoid bleed supratentorial and infratentorial. Head and neck CTA both negative for aneurysm. 05/20: Patient reintubated for worsening neurologic status this morning and placed on mechanical ventilation. Neurosurgery placed a ventriculostomy. When I evaluated the patient he was sedated with propofol, orally intubated on mechanical ventilation. He had just been started on Levophed to maintain CPP. 05/21: Afebrile. Patient remains bradycardic. Currently sedated with propofol along with fentanyl drips. Tolerating tube feeding. No bowel movement. Currently not following commands but on sedation. Plan for formal cerebral arteriogram today 05/22: Afebrile. Noted negative results from's formal cerebral arteriogram yesterday. EEG revealed moderate encephalopathy however no signs of acute epileptiform activity. Tube feeds currently off with residuals around 200 cc. No bowel movement since admission. 05/23: Episode of singultus overnight after respiratory therapy. Did resolved with vagal maneuver yesterday. No bowel movement. Tube feeds currently at 40 cc an hour. 05/24: Currently on dexmedetomidine for PSV trial. Per minute singultus. Transcanal Doppler/CTA brain revealed no acute vasospasm today 05/24. Tolerating tube feeds. Positive BM. 05/25: extubated this AM after passing SBT. however, this afternoon now on NRB. still following commands. TCDs from today pending. no other changes. denies complaints. ROS negative. 05/26: doing well, on NC o2. diuresed well yesterday. TCDs negative for vasospasm. clinical exam stable. ROS negative. had some headache with challenging of EVD yesterday, EVD lowered to 5 today. 05/27: in more respiratory distress this morning. subjectively feels worse, although he cannot completely describe any specific symptoms. says "he feels like he cannot move", but strength is equal and at baseline. wbc elevated and new fever today. flores cultures sent, vanc/cefepime started. cxr and u/a ordered. TCDs continue to be negative. 05/28: clinically much better than before. slightly CAM+ today. urine culture growing GNR. back to simple mask o2 and not in distress. TCDs negative. 05/29: continues to improve. CAM - this morning. urine growing e-coli. TCDs negative. EVD clamped. Subjective 05/30: doing well. EVD had to be reopened last night for hypertension and somnolence. otherwise, TCDs remain negative. patient denies complaints. 05/31: EVD drained again last night due to ICP 20 - 29 range. 06/01 EVD removed yesterday by neurosurgery services, no evidence overnight, neurologically intact Objective Vital Signs Date Time Temp Pulse Resp B/P (MAP) Pulse Ox O2 Delivery O2 Flow Rate FiO2 06/01/17 06:00 87 06/01/17 04:00 98.7 18 133/69 (90) 96 05/31/17 19:00 Room Air 05/31/17 11:42 21 05/28/17 10:20 10.00 Intake and Output 06/01/17 06/01/17 06/02/17 08:00 16:00 00:00 Intake Total 700 ml Output Total 800 ml Balance -100 ml Result Diagram: 06/01/17 0507 06/01/17 0507 Imaging Last Impressions Transcranial Doppler Study Complete 05/24/17 0600 Signed Impressions: Service Date/Time: April 08:45 - CONCLUSION: No vasospasm. Sj Post Jr., MD Head CTA 05/24/17 0000 Signed Impressions: Service Date/Time: April 10:33 - CONCLUSION: No aneurysm or vasospasm. Sj Post Jr., MD Chest X-Ray 05/24/17 0000 Signed Impressions: Service Date/Time: April 09:34 - CONCLUSION: 1. Endotracheal tube tip now lies approximately 6.6 cm above the claudette. 2. Improved aeration with consolidation again noted in both lungs right greater than left. Eduardo Porter MD Abdomen X-Ray 05/23/17 0000 Signed Impressions: Service Date/Time: Tuesday, May 23, 2017 10:50 - CONCLUSION: No dilated loops of bowel. No significant stool burden. Sj Post Jr., MD Cerebral Arteriogram 05/21/17599 Signed Impressions: Service Date/Time: Sunday, May 21, 2017 09:48 - CONCLUSION: 1. Four-vessel selective angiography was performed with cross compression views. No discrete aneurysm was identified. Due to the extensive amount of hemorrhage on the patient's CT scan I would recommend this patient undergo either followup CT angiography or followup conventional angiography for further assessment. Hipolito Mccollum MD Head CT 05/20/17599 Signed Impressions: Service Date/Time: Saturday, May 20, 2017 04:06 - CONCLUSION: 1. Slight interval increase in intraventricular hemorrhage compared to the prior study. The occipital horns are slightly more prominent as well. 2. The subarachnoid hemorrhage is not significantly changed. Eduardo Porter MD Neck CTA 05/19/17 Signed Impressions: Service Date/Time: Friday, May 19, 2017 16:49 - CONCLUSION: Negative CTA. No focal areas of stenosis seen. Sj Carver MD Objective Remarks GENERAL: 62-year-old male, sitting in bed. SKIN: Warm and dry. No rash HEAD: right ventriculostomy currently unclamped. EYES: Pupils equal and round around 2-3 mm and slightly reactive. No conjunctival icterus. No injection or drainage. ENT: No nasal bleeding or discharge. Mucous membranes pink and moist. NECK: Trachea midline. Airway widely patent. CARDIOVASCULAR: normal rate, regular rhythm. RESPIRATORY: room air. unlabored. equal chest rise. clear, no adventitious sounds. GASTROINTESTINAL: Abdomen soft, non-tender, nondistended. MUSCULOSKELETAL: Extremities without significant peripheral edema. No obvious deformities. NEUROLOGICAL: Cranial nerves II through XII appear grossly intact. FC x 4. no neuro deficits. JHON 5/5 in all extremities. A/P Assessment and Plan Assessment: 62yM s/p non-traumatic SAH. clinically improving. EVD removed, doing well neurologically intact NEURO/PSYCH: Subarachnoid hemorrhage Singultus CT brain 05/19 revealed open infratentorial subarachnoid hemorrhage Subarachnoid blood in the sylvian fissures, anterior hemispheric fissure, brainstem and pre-pontine region CT angiogram head and neck revealed no acute aneurysm Repeat CT brain 05/20 revealed no further hemorrhage but now has developed moderate hydrocephalus with some intraventricular hemorrhage in the occipital horn Cerebral angiography 05/21 revealed no signs of vasospasm or aneurysm CTA brain no vasospasm 05/24 Dr. Jeronimo/neurosurgery removed ICP monitor/EVD s/p 7 days keppra ppx 05/19 - 05/25. nimodipine 60 mg by mouth every 4 hours Goal systolic blood pressure less than 140 Transcranial Dopplers daily. - still no evidence of vasospasm. EEG 05/21 reveals moderate encephalopathy no epileptic activity continue frequent neuro checks, can transition to shift neuro checks overnight. DC daily TCDs. melatonin for sleep. Respiratory: Acute hypoxic and hypercarbic respiratory failure - resolved. extubated 05/25. wean o2 for goal spo2 > 90% continue prn nebs aggressive pulmonary toilet. PT consult Cardiovascular Hypotension - resolved. h/o Hypertension SL ivf. - off vasopressors. GI/liver Dysphagia Hypoalbuminemia intravascular volume overload - resolved. speech following for swallow eval and dysphagia. order speech cog eval as well. Docusate sodium/senna twice a day for bowel regimen. Add polyethylene glycol and lactulose twice daily. HEME Normocytic anemia Thrombocytopenia - resolved. Monitor CBC daily. Follow trends Does not meet transfusion threshold at this time : voiding. ID: New fever Leukocytosis CAUTI- e. coli - Rocephin 1gm iv q24h for total 7 day course of abx. RENAL: Creatinine currently within normal limits Monitor urine output Accurate I's and O's FEN: Hyperchloremia Replace electrolytes as clinically indicated per ICU electrolyte protocol DVT GI prophylaxis - Teds SCDs - No pharmacological DVT prophylaxis due to acute ICH -Famotidine for GI prophylaxis Dispo: Medically optimized for transfer to [facility] unit Transfer to hospitalist service, critical care will sign off. Please reconsult us if needed. Level II Blake Aguayo MD Jun 01, 2017 07:49
[2017-06-01] MEDS: POTASSIUM CHLOR 20 MEQ PREMIX 100 ML IV PRN ×4 (08:19→16:03)
[2017-06-01] MEDS: SODIUM CHLORIDE 0.9% FLUSH 10 ML FLUSH IV FLUSH SCH ×2 (08:19→20:11)
[2017-06-01] MEDS: FAMOTIDINE 20 MG TAB NG SCH ×2 (08:21→20:35)
[2017-06-01] MEDS: LACTULOSE SYRUP 20 GM/30 ML CUP PO SCH ×2 (09:00→20:11)
[2017-06-01] MEDS: POLYETHYLENE GLYCOL 17 GM PKG NG SCH ×2 (09:00→20:11)
[2017-06-01] MEDS: DOCUSATE SODIUM 50 MG/SENNA 8.6 MG TAB PO SCH ×2 (09:54→20:11)
[2017-06-01] MEDS: cefTRIAXone INJ 1,000 MG in SODIUM CHLORIDE 0.9% INJ 100 ML IV SCH (14:12)
[2017-06-01] MEDS: MELATONIN 5 MG TAB PO SCH (20:35)
[2017-06-02] MEDS: niMODipine 30 MG CAP PO SCH ×4 (01:07→13:44)
[2017-06-02 01:11] VITALS: BP 139/73; PULSE 88; RESP 19; TEMP 98.9; O2SAT 98
[2017-06-02] MEDS: chlorproMAZINE HCL 25 MG TAB PO SCH ×2 (05:05→14:00)
[2017-06-02] MEDS: ARTIFICIAL TEARS OPTH SOLN 15 ML BTL EACH EYE SCH ×2 (05:05→14:00)
[2017-06-02 05:16] VITALS: BP 145/77; PULSE 89; RESP 18; TEMP 99
[2017-06-02 08:20] VITALS: BP 140/71; PULSE 77; RESP 18; TEMP 98.4; O2SAT 96
[2017-06-02] MEDS: DOCUSATE SODIUM 50 MG/SENNA 8.6 MG TAB PO SCH (09:00)
[2017-06-02] MEDS: POLYETHYLENE GLYCOL 17 GM PKG NG SCH (09:00)
[2017-06-02] MEDS: LACTULOSE SYRUP 20 GM/30 ML CUP PO SCH (09:00)
[2017-06-02] MEDS: FAMOTIDINE 20 MG TAB NG SCH (09:29)
[2017-06-02] MEDS: SODIUM CHLORIDE 0.9% FLUSH 10 ML FLUSH IV FLUSH SCH (09:31)
[2017-06-02] MEDS ORDERED: WALKER WHEELS/F1 MIS (11:22)
--- NOTE | 2017-06-02 11:23 | HHI.FF ---
Face to Face Verification Diagnosis: (1) SAH (subarachnoid hemorrhage) Physical Therapy Order: Evaluate and Treat, Improve ambulation, Strength and gait training Home Health Nursing Order: Medical education Signs/symptoms of disease process Nursing assessment with vital signs I have seen patient Bryan Post on 06/02/17. My clinical findings support the need for the requested home health care services because: Deconditioned w/ increased weakness Limited ability to care for self High risk of falls Infection w/ risk of complications I certify that my clinical findings support that this patient is homebound because: Post-op weakness Unsafe to leave home unassisted Unable to use public transportation Nona Blackmon DO Jun 02, 2017 11:23
[2017-06-02] MEDS ORDERED: NIMO30CA3 PO (11:59)
[2017-06-02] MEDS ORDERED: MELA5 PO (11:59)
[2017-06-02 12:00] VITALS: BP 134/65; PULSE 87; RESP 18; TEMP 98.5; O2SAT 97
--- NOTE | 2017-06-02 12:01 | HHI.DS ---
Discharge Summary Admission Date May 19, 2017 at 4:44 pm Discharge Date: Jun 02, 2017 Admitting Diagnosis acute subarachnoid hemorrhage Procedures 05/20/2017 Right frontal twist drill hole ventriculostomy placement Brief History - From Admission 62-year-old male with no significant past medical history, presents here with sudden onset headache. Patient states he was pushing up a heavy [place] tree when he had a sudden onset of bifrontal and top of his head pain. He has never experienced similar pain before. He did not pass out. He did not fell off the ladder. He reports the pain as sharp and severe. He denies any weakness of his extremities. He denies any neck pain. The patient is currently taking no medications. He has no family history of headaches or subarachnoid bleed. The CT of the head revealed extensive subarachnoid bleed supratentorial and infratentorial. Head and neck CTA both negative for aneurysm. CBC/BMP: 06/01/17 0507 06/01/17 0507 Significant Findings Laboratory Tests Test 05/31/17 05:25 06/01/17 05:07 Red Blood Count 3.94 MIL/MM3 (4.50-5.90) 4.08 MIL/MM3 (4.50-5.90) Hemoglobin 12.2 GM/DL (13.0-17.0) 12.4 GM/DL (13.0-17.0) Hematocrit 35.7 % (39.0-51.0) 37.1 % (39.0-51.0) Blood Urea Nitrogen 19 MG/DL (7-18) Random Glucose 127 MG/DL (74-106) 109 MG/DL (74-106) Calcium Level 7.8 MG/DL (8.5-10.1) 8.1 MG/DL (8.5-10.1) Potassium Level 3.0 MEQ/L (3.5-5.1) 3.2 MEQ/L (3.5-5.1) Imaging Last Impressions Transcranial Doppler Study Complete 05/31/17 1000 Signed Impressions: Service Date/Time: May 09:10 - CONCLUSION: There are no findings to indicate vasospasm. Kyree Gomez MD Head CT 05/31/17 0600 Signed Impressions: Service Date/Time: May 04:32 - CONCLUSION: 1. Interval resolution of subarachnoid and intraventricular hemorrhage. 2. Interval placement of ventricular shunt catheter with decrease in hydrocephalus. The ventricular system is now within normal limits. 3. No new hemorrhage or mass effect. Eduardo Porter MD Chest X-Ray 05/27/17 0000 Signed Impressions: Service Date/Time: Saturday, May 27, 2017 08:52 - CONCLUSION: Persistent bibasilar consolidation. Dillon Spring MD Head CTA 05/24/17 0000 Signed Impressions: Service Date/Time: April 10:33 - CONCLUSION: No aneurysm or vasospasm. Sj Post Jr., MD Abdomen X-Ray 05/23/17 0000 Signed Impressions: Service Date/Time: Tuesday, May 23, 2017 10:50 - CONCLUSION: No dilated loops of bowel. No significant stool burden. Sj Post Jr., MD Cerebral Arteriogram 05/21/17 06 Signed Impressions: Service Date/Time: Sunday, May 21, 2017 09:48 - CONCLUSION: 1. Four-vessel selective angiography was performed with cross compression views. No discrete aneurysm was identified. Due to the extensive amount of hemorrhage on the patient's CT scan I would recommend this patient undergo either followup CT angiography or followup conventional angiography for further assessment. Hipolito Mccollum MD Neck CTA 05/19/17 0000 Signed Impressions: Service Date/Time: Friday, May 19, 2017 16:49 - CONCLUSION: Negative CTA. No focal areas of stenosis seen. Sj Carver MD PE at Discharge GENERAL: Alert, Oriented x 3, NAD. SKIN: Warm and dry. HEAD: Normocephalic. EYES: No scleral icterus. No injection or drainage. NECK: Supple, trachea midline. No JVD or lymphadenopathy. CARDIOVASCULAR: Regular rate and rhythm without murmurs, gallops, or rubs. RESPIRATORY: Breath sounds equal bilaterally. No accessory muscle use. GASTROINTESTINAL: Abdomen soft, non-tender, nondistended. MUSCULOSKELETAL: No cyanosis, or edema. BACK: Nontender without obvious deformity. No CVA tenderness. Pt update on day of discharge Patient is doing well. No focal neurological deficits. Neurosurgery cleared for discharge. Pt Condition on Discharge: Good Discharge Disposition: Disch w/ Home Health Serv Discharge Time: > 30 minutes Discharge Instructions DIET: Follow Instructions for: Heart Healthy Diet Activities you can perform: Regular-No Restrictions Follow up Referrals: PCP Follow-up - 1 Week PCP Follow-up New Medications: Potassium Chloride ER (K-Tab) 20 Meq Tab 20 MEQ PO DAILY for Electrolyte Replacement for 5 Days, #5 TAB 0 Refills Walker with Front Wheels (Walker with Front Wheels) 1 Mis Mis EA .ROUTE DIRECTED, #1 0 Refills Melatonin (Melatonin) 5 Mg Tab 5 MG PO HS for Insomnia for 30 Days, TAB Nimodipine (Nimodipine) 30 Mg Cap 60 MG PO Q4H for ICH for 30 Days, #360 CAP Nona Blackmon DO Jun 02, 2017 12:00
[2017-06-02] MEDS ORDERED: POTA1TAB4 PO (12:03)
== END 2017-06-02 14:43 | disposition home health service (06) | DRG 23 ==
LOC: NEPC 15:31 → NEDA 16:44 → N03A 18:05 → N03B 05-31 19:56 → N05B 06-01 20:51
PROVIDERS: ADMIT Hospitalist; ATTEND Hospitalist
PROC: 009630Z Drainage of Cerebral Ventricle with Drainage Device, Percutaneous Approach (ICD-10-PCS; principal; 2017-05-20)
PROC: 0BH17EZ Insertion of Endotracheal Airway into Trachea, Via Natural or Artificial Opening (ICD-10-PCS; 2017-05-20)
PROC: 5A1955Z Respiratory Ventilation, Greater than 96 Consecutive Hours (ICD-10-PCS; 2017-05-20)
PROC: 02HV33Z Insertion of Infusion Device into Superior Vena Cava, Percutaneous Approach (ICD-10-PCS; 2017-05-20)
PROC: B548ZZA Ultrasonography of Superior Vena Cava, Guidance (ICD-10-PCS; 2017-05-20)
PROC: B3131ZZ Fluoroscopy of Right Common Carotid Artery using Low Osmolar Contrast (ICD-10-PCS; 2017-05-21)
PROC: B31F1ZZ Fluoroscopy of Left Vertebral Artery using Low Osmolar Contrast (ICD-10-PCS; 2017-05-21)
PROC: B3171ZZ Fluoroscopy of Left Internal Carotid Artery using Low Osmolar Contrast (ICD-10-PCS; 2017-05-21)
DX: I60.9 Nontraumatic subarachnoid hemorrhage, unspecified (principal); J96.01 Acute respiratory failure with hypoxia; G93.40 Encephalopathy, unspecified; G91.9 Hydrocephalus, unspecified; J96.02 Acute respiratory failure with hypercapnia; R13.10 Dysphagia, unspecified; D69.6 Thrombocytopenia, unspecified; E87.8 Other disorders of electrolyte and fluid balance, not elsewhere classified; I95.9 Hypotension, unspecified; T83.511A Infection and inflammatory reaction due to indwelling urethral catheter, initial encounter; E88.09 Other disorders of plasma-protein metabolism, not elsewhere classified; E83.51 Hypocalcemia; E87.70 Fluid overload, unspecified; B96.20 Unspecified Escherichia coli [E. coli] as the cause of diseases classified elsewhere; I10 Essential (primary) hypertension; R00.1 Bradycardia, unspecified; D64.9 Anemia, unspecified; R06.6 Hiccough
CPT/HCPCS: 31500; 36223; 36224; 36226; 36556; 36620; 61210; 70450; 70496; 70498; 71010; 74000; 76937; 80048; 80053; 80202; 81001; 82805; 82945; 82948; 83735; 84100; 84157; 85025; 85027; 85610; 85730; 87040; 87070; 87077; 87086; 87186; 87205; 87641; 89051; 93886; 94002; 94003; 94150; 94640; 94664; 94667; 94668; 94770; 95819; 96374; 96375; C1769; C1887; C1894; J0131; J0330; J0360; J0610; J0692; J0696; J0780; J1170; J1630; J1940; J1953; J2250; J2270; J2405; J2765; J3010; J3370; J3475; J3480; J7030; J7040; J7050; J7613; Q9967

== ENCOUNTER 2017-06-04 07:52 | Emergency (ER) | payer OTHER ==
[~2017-06-04] VITALS: Ht 182.9 cm; Wt 75.0 kg
[~2017-06-04 07:52] MED LIST: MELA5 PO; NIMO30CA3 PO; POTA1TAB4 PO; WALKER WHEELS/F1 MIS
[2017-06-04 07:54] VITALS: BP 141/71; PULSE 79; RESP 16; TEMP 99.2; O2SAT 97
--- NOTE | 2017-06-04 08:19 | PD ---
HPI Chief Complaint: Medical Clearance Time Seen by Provider: 08:18 Travel History International Travel<30 days: No Contact w/Intl Traveler<30days: No Traveled to known affect area: No History of Present Illness HPI 62-year-old male came to the emergency room with history of headache. Patient was discharged 3 days ago from the hospital after a subarachnoid hemorrhage. The says that he has been sleeping with his head raised like he was recommended except for last night when he wanted to lay flat. His morning when he woke up he's been complaining of pressure behind his eyeballs. Light bothers him. Vital signs are otherwise stable. Patient is awake and answering questions appropriately but does appear to be in moderate distress. PFSH Past Medical History Narrative Medical List of his past medical, surgical, social and family history is reviewed from the nursing note. Autoimmune Disease: No Cancer: No Cardiovascular Problems: No Diminished Hearing: No Endocrine: No Genitourinary: No Musculoskeletal: No Neurologic: Yes (intracraneal hemorrage) Respiratory: No Tetanus Vaccination: > 5 Years Influenza Vaccination: No Past Surgical History Cardiac Surgery: Yes (Ablation) Genitourinary Surgery: Yes (VaSECTOMY) Other Surgery: Yes (Cyst removed from abdomen/ intracraneal drain) Social History Alcohol Use: Yes (OCC) Tobacco Use: No Substance Use: No Allergies-Medications (Allergen,Severity, Reaction): Coded Allergies: No Known Allergies (Verified Allergy, Unknown, 06/04/17) Comments No known drug allergies. Reported Meds & Prescriptions Reported Meds & Active Scripts Active K-Tab (Potassium Chloride) 20 Meq Tab 20 Meq PO DAILY 5 Days Melatonin 5 Mg Tab 5 Mg PO HS 30 Days Nimodipine 30 Mg Cap 60 Mg PO Q4H 30 Days Narrative Medication List of his home medications reviewed from the nursing note. Review of Systems Except as stated in HPI: all other systems reviewed are Neg Neurologic: Positive: Headache Physical Exam Narrative GENERAL: Awake, alert, moderate distress SKIN: Focused skin assessment warm/dry. HEAD: Atraumatic. Normocephalic. EYES: Pupils equal and round. No scleral icterus. No injection or drainage. ENT: No nasal bleeding or discharge. Mucous membranes pink and moist. NECK: Trachea midline. No JVD. CARDIOVASCULAR: Regular rate and rhythm. No murmur appreciated. RESPIRATORY: No accessory muscle use. Clear to auscultation. Breath sounds equal bilaterally. GASTROINTESTINAL: Abdomen soft, non-tender, nondistended. Hepatic and splenic margins not palpable. MUSCULOSKELETAL: No obvious deformities. No clubbing. No cyanosis. No edema. NEUROLOGICAL: Awake and alert. No obvious cranial nerve deficits. Motor grossly within normal limits. Normal speech. PSYCHIATRIC: Appropriate mood and affect; insight and judgment normal. Data Data Last Documented VS Vital Signs Date Time Temp Pulse Resp B/P (MAP) Pulse Ox O2 Delivery O2 Flow Rate FiO2 06/04/17 10:32 15 06/04/17 10:31 75 118/63 (81) 98 06/04/17 09:22 Room Air 06/04/17 07:[address] Brain W/O Iv Contrast(Rout) (06/04/17 ) Urinalysis - C+S If Indicated (06/04/17 08:27) Acetaminophen (Tylenol) (06/04/17 08:30) Ed Discharge Order (06/04/17 09:52) Labs Laboratory Tests Test 06/04/17 08:52 Urine Color LIGHT-YELLOW Urine Turbidity CLEAR Urine pH 6.5 Urine Specific [place] 1.006 Urine Protein NEG mg/dL Urine Glucose (UA) NEG mg/dL Urine Ketones NEG mg/dL Urine Occult Blood NEG Urine Nitrite NEG Urine Bilirubin NEG Urine Urobilinogen LESS THAN 2.0 MG/DL Urine Leukocyte Esterase NEG Urine WBC LESS THAN 1 /hpf Urine Squamous Epithelial Cells <1 /hpf Microscopic Urinalysis Comment CULT NOT INDICATED MDM Medical Decision Making Medical Screen Exam Complete: Yes Emergency Medical Condition: Yes Medical Record Reviewed: Yes Differential Diagnosis Recurrent subarachnoid hemorrhage, post SAH headache Narrative Course 9:45 AM patient was given by mouth Tylenol for his headache. A CT scan of the head was done and does not show any head bleed. At this point I'm comfortable discharging him home. Procedures EKG Prior to Arrival: No Diagnosis Primary Impression: Headache Qualified Codes: R51 - Headache Additional Impression: post subarachnoid hemorrhage headache Referrals: Franky Jeronimo MD 2 days Additional Instructions: Please return to the ER if the condition worsens or any other new concerns. Follow-up with the neurosurgeon who had operated on him. His office number and address has been provided in these discharge paperwork. Sleep with the head and of the bed elevated. Med/Other Pt SpecificInfo: No Change to Meds Disposition: 01 DISCHARGE HOME Condition: Stable Vasile Figueroa MD Jun 04, 2017 08:19
[2017-06-04] MEDS ORDERED: ACETAMINOPHEN 325 MG TAB PO ONE (08:30)
[2017-06-04 08:32] VITALS: BP 133/86; PULSE 63; RESP 18; O2SAT 97
[2017-06-04 09:16] LABS: BLOOD, URINE NEG (NEG); GLUCOSE,URINE NEG (NEG); KETONE, URINE NEG (NEG); NITRITE,URINE NEG (NEG); PH, URINE 6.5 (5.0-8.5); SQUAMOUS EPITHELIAL CELL URINE <1 /hpf (0-5); URINE COLOR LIGHT-YELLOW (YELLW/STRAW)
[2017-06-04 09:18] LABS: COMMENT (UR) CULT NOT INDICATED; CULTURE IF INDICATED CULT NOT INDICATED
--- NOTE | 2017-06-04 09:18 | RADRPT ---
EXAM DATE/TIME: 06/04/2017 08:50 [facility] COMPARISON: CT BRAIN W/O CONTRAST, May 31, 2017, 4:32. INDICATIONS : Sensitivity to light, bilateral eye pain 2 days post discharge for bleed RADIATION DOSE: 56.35 CTDIvol (mGy) MEDICAL HISTORY : Cardiovascular disease. SURGICAL HISTORY : None. ENCOUNTER: Initial ACUITY: 1 day PAIN SCALE: 2/10 LOCATION: Bilateral eyes TECHNIQUE: Multiple contiguous axial images were obtained of the head. Using automated exposure control and adj ustment of the mA and/or kV according to patient size, radiation dose was kept as low as reasonably a chievable to obtain optimal diagnostic quality images. DICOM format image data is available electro nically for review and comparison. FINDINGS: CEREBRUM: The ventricles are normal for age. No evidence of midline shift, mass lesion, hemorrhage or acute in farction. No extra-axial fluid collections are seen. POSTERIOR FOSSA: The cerebellum and brainstem are intact. The 4th ventricle is midline. The cerebellopontine angle i s unremarkable. EXTRACRANIAL: The visualized portion of the orbits is intact. SKULL: The calvaria is intact. No evidence of skull fracture. CONCLUSION: No acute intracranial disease. Ventriculostomy catheter has been removed on the right. No residual he morrhage. Dillon Spring MD on June 04, 2017 at 9:15 Board Certified Radiologist. This report was verified electronically.
[2017-06-04 09:22] VITALS: BP 121/62; PULSE 58; RESP 14; O2SAT 98
[2017-06-04 10:31] VITALS: BP 118/63
[2017-06-04 10:32] VITALS: RESP 15
== END 2017-06-04 11:06 | disposition home or self-care (01) ==
LOC: NEPE 07:52
DX: I60.9 Nontraumatic subarachnoid hemorrhage, unspecified (principal)
CPT/HCPCS: 70450; 81001; 99285